=== PATIENT | male | born 1940 | race Two or more races ===

== ENCOUNTER 2018-12-07 17:01 | Emergency (ER) | payer MEDICARE, OTHER ==
[~2018-12-07] VITALS: Ht 167.6 cm; Wt 49.9 kg
[2018-12-07 17:20] VITALS: BP 129/80
--- NOTE | 2018-12-07 17:20 | NUR ---
ED Nurse Note: pt brought in by ambulance from [facility] c/o RLQ abd pain and n/v/d, pt states he doesn't have nausea nor abd pain at this time. PT AA&ox2, HX dementia, GCS=15, skin warm and dry, resp even and unlabored on RA, -n/v/d at this time, active BS, will cont monitor.
[2018-12-07 17:46] LABS: HEMATOCRIT 41.6 % (42.0-52.0); HEMOGLOBIN 14.1 G/DL (14.2-18.0); MEAN CORPUSCULAR VOLUME 88 FL (80-99); PLATELET COUNT 241 K/UL (150-450); RED BLOOD COUNT 4.73 M/UL (4.70-6.10); RED CELL DISTRIBUTION WIDTH 12.2 % (11.6-14.8)
[2018-12-07 17:48] LABS: ANION GAP 10 mmol/L (5-15); BLOOD UREA NITROGEN 18 mg/dL (7-18); CALCIUM 8.9 MG/DL (8.5-10.1); CARBON DIOXIDE 25 MMOL/L (21-32); CHLORIDE 105 MMOL/L (98-107); CREATININE 1.1 MG/DL (0.55-1.30); POTASSIUM 3.8 MMOL/L (3.5-5.1); SODIUM 140 MMOL/L (136-145)
[2018-12-07 17:49] LABS: APPEARANCE,URINE CLEAR; BILIRUBIN, URINE NEGATIVE (NEGATIVE); COLOR,URINE PALE YELLOW; GLUCOSE, URINE (UA) NEGATIVE (NEGATIVE); KETONES,URINE NEGATIVE (NEGATIVE); LEUKOCYTE ESTERASE ,URINE NEGATIVE (NEGATIVE); NITRITE,URINE NEGATIVE (NEGATIVE); PH,URINE 5 (4.5-8.0); PROTEIN,URINE 3+ (NEGATIVE); UROBILINOGEN,URINE NORMAL MG/DL (0.0-1.0)
--- NOTE | 2018-12-07 17:57 | Diagnostic Imaging Report ---
Indication: Chest pain Technique: One view of the chest Comparison: 01/27/2011 Findings: No acute infiltrates, effusions, or congestion. Tortuous calcified aorta. Normal heart size. Upper mediastinum unremarkable. No significant interim change Impression: No acute process.
[2018-12-07 18:01] LABS: ALANINE AMINOTRANSFERASE 21 U/L (12-78); ALBUMIN 3.5 G/DL (3.4-5.0); ALBUMIN/GLOBULIN RATIO 0.9 (1.0-2.7); ALKALINE PHOSPHATASE 119 U/L (46-116); ASPARTATE AMINO TRANSFERASE 19 U/L (15-37); BILIRUBIN,TOTAL 0.3 MG/DL (0.2-1.0); CKMB 1.2 NG/ML (0.0-3.6); CREATINE KINASE 82 U/L (26-308)
--- NOTE | 2018-12-07 19:20 | NUR ---
ED Nurse Note: spoke with Criselda RAMACHANDRAN at [facility], pt will be transferr back to snf.
--- NOTE | 2018-12-07 20:00 | Emergency Room Report ---
History of Present Illness General Chief Complaint: Nausea, Vomiting, and Diarrhea Source: Patient Present Illness HPI Patient presents with reports of increased nausea vomiting Upon arrival however the patient states that he feels significantly improved Initially there was also reports of diffuse abdominal discomfort Denies any chest pain or shortness of breath denies any dysuria frequency denies any flank pain Denies any recent abdominal procedures denies any rash Allergies: Coded Allergies: No Known Allergies (Unverified , 12/07/18) Patient History Past Medical History: see triage record Pertinent Family History: none Reviewed Nursing Documentation: PMH: Agreed; PSxH: Agreed Nursing Documentation-PMH Past Medical History: No History, Except For Hx Cardiac Problems: No - BPH Hx Hypertension: Yes Hx Gastrointestinal Problems: Yes - GERD History Of Psychiatric Problem: Yes - DEMENTIA Review of Systems All Other Systems: negative except mentioned in HPI Physical Exam Vital Signs Date Time Temp Pulse Resp B/P (MAP) Pulse Ox O2 Delivery O2 Flow Rate FiO2 12/07/18 16:57 77 18 129/80 94 Room Air 12/07/18 17:20 89.2 Sp02 EP Interpretation: reviewed, normal General Appearance: well appearing, no apparent distress Head: normocephalic, atraumatic Eyes: bilateral eye PERRL, bilateral eye EOMI ENT: hearing grossly normal, normal pharynx, TMs + canals normal, uvula midline Neck: full range of motion, supple, no meningismus, no bony tend Respiratory: lungs clear, normal breath sounds, no rhonchi, no respiratory distress, no retraction, no accessory muscle use Cardiovascular #1: normal peripheral pulses, regular rate, rhythm, no edema, no gallop, no JVD, no murmur Gastrointestinal: normal bowel sounds, non tender, soft, no mass, no organomegaly, non-distended, no guarding, no hernia, no pulsatile mass, no rebound Genitourinary: no CVA tenderness Musculoskeletal: normal inspection Neurologic: oriented x3, responsive, game warden III-XII nml as tested, motor strength/ tone normal, sensory intact Psychiatric: mood/affect normal Skin: normal color, no rash, warm/dry, palpation normal Lymphatic: normal inspection, no adenopathy Medical Decision Making Diagnostic Impression: Primary Impression: Nausea, vomiting, and diarrhea ER Course With the history exam and presentation, multiple differentials considered, including but not limited to appendicitis, gastritis, cholecystitis, diverticulitis Given the patient's initial history and complaints extensive blood work and imaging was obtained Imaging does not show any obvious acute pathology Blood work also remains at baseline levels Case discussed with the patient's primary as well and at this time patient stable for close outpatient [facility] follow-up Labs Test 12/07/18 17:17 12/07/18 17:32 White Blood Count 11.0 K/UL (4.8-10.8) Red Blood Count 4.73 M/UL (4.70-6.10) Hemoglobin 14.1 G/DL (14.2-18.0) Hematocrit 41.6 % (42.0-52.0) Mean Corpuscular Volume 88 FL (80-99) Mean Corpuscular Hemoglobin 29.9 PG (27.0-31.0) Mean Corpuscular Hemoglobin Concent 34.0 G/DL (32.0-36.0) Red Cell Distribution Width 12.2 % (11.6-14.8) Platelet Count 241 K/UL (150-450) Mean Platelet Volume 5.6 FL (6.5-10.1) Neutrophils (%) (Auto) % (45.0-75.0) Lymphocytes (%) (Auto) % (20.0-45.0) Monocytes (%) (Auto) % (1.0-10.0) Eosinophils (%) (Auto) % (0.0-3.0) Basophils (%) (Auto) % (0.0-2.0) Differential Total Cells Counted 100 Neutrophils % (Manual) 83 % (45-75) Lymphocytes % (Manual) 10 % (20-45) Monocytes % (Manual) 4 % (1-10) Eosinophils % (Manual) 0 % (0-3) Basophils % (Manual) 0 % (0-2) Band Neutrophils 3 % (0-8) Platelet Estimate Adequate Platelet Morphology Normal Red Blood Cell Morphology Normal Sodium Level 140 MMOL/L (136-145) Potassium Level 3.8 MMOL/L (3.5-5.1) Chloride Level 105 MMOL/L (98-107) Carbon Dioxide Level 25 MMOL/L (21-32) Anion Gap 10 mmol/L (5-15) Blood Urea Nitrogen 18 mg/dL (7-18) Creatinine 1.1 MG/DL (0.55-1.30) Estimat Glomerular Filtration Rate mL/min (>60) Glucose Level 123 MG/DL (74-106) Calcium Level 8.9 MG/DL (8.5-10.1) Total Bilirubin 0.3 MG/DL (0.2-1.0) Aspartate Amino Transf (AST/SGOT) 19 U/L (15-37) Alanine Aminotransferase (ALT/SGPT) 21 U/L (12-78) Alkaline Phosphatase 119 U/L (46-116) Total Creatine Kinase 82 U/L (26-308) Creatine Kinase MB 1.2 NG/ML (0.0-3.6) Creatine Kinase MB Relative Index 1.4 Troponin I 0.005 ng/mL (0.000-0.056) Total Protein 7.6 G/DL (6.4-8.2) Albumin 3.5 G/DL (3.4-5.0) Globulin 4.1 g/dL Albumin/Globulin Ratio 0.9 (1.0-2.7) Lipase 136 U/L (73-393) Urine Color Pale yellow Urine Appearance Clear Urine pH 5 (4.5-8.0) Urine Specific [place] 1.015 (1.005-1.035) Urine Protein 3+ (NEGATIVE) Urine Glucose (UA) Negative (NEGATIVE) Urine Ketones Negative (NEGATIVE) Urine Blood 2+ (NEGATIVE) Urine Nitrite Negative (NEGATIVE) Urine Bilirubin Negative (NEGATIVE) Urine Urobilinogen Normal MG/DL (0.0-1.0) Urine Leukocyte Esterase Negative (NEGATIVE) Urine RBC 2-4 /HPF (0 - 0) Urine WBC 0-2 /HPF (0 - 0) Urine Squamous Epithelial Cells None /LPF (NONE/OCC) Urine Bacteria Few /HPF (NONE) CT/MRI/US Diagnostic Results CT/MRI/US Diagnostic Results : Impression CT abdomen pelvis: refer to the note for full Specifics no obvious acute pathology Last Vital Signs Date Time Temp Pulse Resp B/P (MAP) Pulse Ox O2 Delivery O2 Flow Rate FiO2 12/07/18 17:20 89.2 76 18 129/80 94 Room Air Status: improved Disposition: XFER SNF Condition: Improved Referrals: Guido Prieto MD (PCP) Additional Instructions: Patient is provided with the discharge instructions notified to follow up with primary doctor in the next 2-3 days otherwise return to the er with any worsening symptoms. Please note that this report is being documented using DRAGON technology. This can lead to erroneous entry secondary to incorrect interpretation by the dictating instrument. Guido Sellers DO Dec 07, 2018 20:00
[2018-12-07 21:02] VITALS: BP 133/81
--- NOTE | 2018-12-07 21:03 | NUR ---
ED Nurse Note: pt cleared to be d/c per ERMD, pt discharge and aftercare instruction provide and sent with BLS, report was given to Criselda, endorsed care to EMT ambulance personnel, pt left w/ all belongings, vss, resp even and unlabored on RA, iv d/c and ID band removed.
--- NOTE | 2018-12-08 10:02 | Diagnostic Imaging Report ---
Indication: Abdominal pain Technique: Noncontrast CT of the abdomen and pelvis utilizing automated exposure control. Axial, sagittal and coronal reformats presented. CT dose: Total DLP 548.1 mGycm; CTDI vol 10.45 mGy Comparison: None Findings: Please note that evaluation of the abdominal and pelvic viscera and vascular structures is limited without the use of intravenous and oral contrast. Within these limitations the following observations are made: Mild bibasilar atelectasis and peribronchial thickening. No pleural effusion or pneumothorax. Heart size appears within normal limits. Coronary arterial calcifications are suggested but not completely imaged. Liver is normal in size. Hepatic contour appears smooth. There is a subcentimeter well-circumscribed low-attenuation lesion in the posterior right hepatic lobe which is too small to fully characterize but may represent a cyst. Gallbladder is not distended. No CT evident gallstones are identified. No biliary ductal dilatation. Spleen, adrenal glands and pancreas grossly unremarkable for noncontrast evaluation. No appreciable pancreatic ductal dilatation. Kidneys are heterogeneous in attenuation with multiple simple and complex cysts. Largest cyst on the left kidney measures up to 6.6 cm. There are some punctate calcifications which may be related to an injection of vascular calcifications, nonobstructing stones or calcifications within hatch of the cysts. There is no evidence of hydronephrosis bilaterally. Bladder is not significantly distended. The prostate is enlarged, heterogeneous and exerts mass effect on the posterior aspect of the bladder. Note that evaluation of the gastrointestinal structures is limited without enteric contrast. There is no free intraperitoneal air. There is mesenteric edema and very mild ascites. There is evidence of prior surgery with multiple surgical clips adjacent to the lower esophagus in the region of the diaphragmatic hiatus. Surgical clips are also noted adjacent to the liver at this level. Additionally there is evidence of prior bowel surgery with a surgical as to moderate suture line in the right mid/lower abdomen. There is no evidence of abnormal small bowel dilatation to suggest small bowel obstruction. Few scattered colonic diverticula are noted without evidence to suggest acute diverticulitis. Appendix is normal in caliber with air in its lumen. No periappendiceal inflammatory changes. Moderate to severe atherosclerotic calcifications noted in a normal caliber abdominal aorta. There are multilevel degenerative changes in the spine without evidence of acute osseous abnormality. IMPRESSION: Limited exam without intravenous and oral contrast. Within these limitations: * Mesenteric edema and small amount of abdominal ascites. No evidence of free intraperitoneal air. * Evidence of prior surgery with surgical clips in the region of the diaphragmatic hiatus and a anastomotic suture line in the region of the right mid/lower abdomen. Correlation with surgical history is recommended. No abnormal small bowel dilatation is noted. * Heterogeneous kidneys with multiple punctate calcifications which may be related to vascular calcifications, nonobstructing stones or calcifications within hatch of cysts. No evidence of hydronephrosis bilaterally. * Multiple simple and more complex appearing cysts in the bilateral kidneys. Further evaluation with contrast-enhanced exam or renal ultrasound recommended on a routine basis. * Subcentimeter low-attenuation lesion in the right hepatic lobe too small to fully characterize but possibly may represent a cyst. * Atherosclerotic disease. * Mild bibasilar atelectasis and peribronchial thickening. Salient findings correspond with the preliminary report. More sensitive evaluation can be obtained with CT with oral and IV contrast as clinically indicated. The CT scanner at [facility] is accredited by the [employer] and the scans are performed using protocols designed to limit radiation exposure to as low as reasonably achievable to attain images of sufficient resolution adequate for diagnostic evaluation.
== END 2018-12-07 21:10 ==
LOC: EDBD 17:01 → EMR 17:05 → CANBEDREQ 19:07 → EMR 21:10
DX: R11.2 Nausea with vomiting, unspecified (principal); R19.7 Diarrhea, unspecified; I10 Essential (primary) hypertension; K21.9 Gastro-esophageal reflux disease without esophagitis; F03.90 Unspecified dementia, unspecified severity, without behavioral disturbance, psychotic disturbance, mood disturbance, and anxiety; R10.9 Unspecified abdominal pain; N20.0 Calculus of kidney; I70.90 Unspecified atherosclerosis; J98.11 Atelectasis
CPT/HCPCS: 36415; 71045; 74176; 80053; 81003; 82550; 82553; 83690; 84484; 85007; 85025; 93005; 99284

== ENCOUNTER 2019-01-25 12:18 | Inpatient (IN) | payer MEDICARE, OTHER ==
[~2019-01-25] VITALS: Ht 170.2 cm; Wt 77.3 kg
[2019-01-25 12:23] VITALS: BP 133/68
--- NOTE | 2019-01-25 12:23 | NUR ---
ED Nurse Note: Patient brought in to ER by ambulance from [facility] due to more altered than baseline. per EMS, SNF staff reported pt usually aao x2 but he appreared aao x1 today and confused. vss as documented and skin clean and intact. pt aao x1 to name only and ambulatory with assist and weak. pt follows commands and calm.
--- NOTE | 2019-01-25 12:25 | NUR ---
ED Nurse Note: pt went down for CT scan in stable condition.
[2019-01-25] MEDS ORDERED: ZOFRAN4 M3 ORAL (12:31)
[2019-01-25] MEDS ORDERED: FLOMAX0.4 MG ORAL (12:31)
[2019-01-25] MEDS ORDERED: AMLODIPINE BESYL5 MG ORAL (12:31)
[2019-01-25] MEDS ORDERED: NEXIUM20 MG ORAL (12:31)
[2019-01-25] MEDS ORDERED: ACETAMINOPHEN325 M1 ORAL (12:31)
[2019-01-25] MEDS ORDERED: MIRALAX17 G2 ORAL (12:31)
[2019-01-25] MEDS ORDERED: PROSCAR5 MG ORAL (12:31)
--- NOTE | 2019-01-25 12:40 | NUR ---
ED Nurse Note: pt came back from CT in stable condition.
--- NOTE | 2019-01-25 12:54 | Diagnostic Imaging Report ---
Indications: Altered mental status Technique: Spiral acquisitions obtained through the brain. Angled axial and coronal 5 x 5 mm slices were reconstructed. Total dose length product 1396.78 mGycm. CTDI vol(s) 70.38 mGy. Dose reduction achieved using automated exposure control Comparison: None. Findings: There is age-related enlargement of the ventricles and extra axial CSF spaces. There is periventricular deep white matter low-attenuation, consistent with chronic microvascular ischemic changes. No acute intracranial hemorrhage or edema, mass effect, nor midline shift. Impression: Chronic and age-related changes chronic and age-related changes. Negative for acute intracranial bleed or mass effect The CT scanner at [facility] is accredited by the [employer] and the scans are performed using protocols designed to limit radiation exposure to as low as reasonably achievable to attain images of sufficient resolution adequate for diagnostic evaluation.
[2019-01-25 13:04] LABS: BASOPHILS % (AUTO) 0.8 % (0.0-2.0); EOSINOPHILS % (AUTO) 2.9 % (0.0-3.0); LYMPHOCYTES % (AUTO) 13.3 % (20.0-45.0); MEAN CORPUSCULAR VOLUME 89 FL (80-99); MONOCYTES % (AUTO) 7.2 % (1.0-10.0); NEUTROPHILS % (AUTO) 75.8 % (45.0-75.0); PLATELET COUNT 313 K/UL (150-450); RED BLOOD COUNT 5.15 M/UL (4.70-6.10); RED CELL DISTRIBUTION WIDTH 12.9 % (11.6-14.8); WHITE BLOOD COUNT 7.7 K/UL (4.8-10.8)
[2019-01-25 13:09] LABS: APPEARANCE,URINE CLEAR; BILIRUBIN, URINE NEGATIVE (NEGATIVE); COLOR,URINE PALE YELLOW; GLUCOSE, URINE (UA) NEGATIVE (NEGATIVE); KETONES,URINE NEGATIVE (NEGATIVE); LEUKOCYTE ESTERASE ,URINE NEGATIVE (NEGATIVE); NITRITE,URINE NEGATIVE (NEGATIVE); PH,URINE 7 (4.5-8.0); PROTEIN,URINE 2+ (NEGATIVE); UROBILINOGEN,URINE NORMAL MG/DL (0.0-1.0)
[2019-01-25 13:11] LABS: ANION GAP 9 mmol/L (5-15); BLOOD UREA NITROGEN 18 mg/dL (7-18); CALCIUM 9.1 MG/DL (8.5-10.1); CARBON DIOXIDE 28 MMOL/L (21-32); CHLORIDE 104 MMOL/L (98-107); CREATININE 1.2 MG/DL (0.55-1.30); POTASSIUM 3.7 MMOL/L (3.5-5.1); SODIUM 141 MMOL/L (136-145)
[2019-01-25 13:36] LABS: ALANINE AMINOTRANSFERASE 24 U/L (12-78); ALBUMIN 3.7 G/DL (3.4-5.0); ALBUMIN/GLOBULIN RATIO 0.9 (1.0-2.7); ALKALINE PHOSPHATASE 113 U/L (46-116); ASPARTATE AMINO TRANSFERASE 25 U/L (15-37); BILIRUBIN,TOTAL 0.5 MG/DL (0.2-1.0); CKMB 5.2 NG/ML (0.0-3.6); CREATINE KINASE 405 U/L (26-308)
[2019-01-25 14:30] VITALS: BP 144/69
--- NOTE | 2019-01-25 14:47 | Emergency Room Report ---
History of Present Illness General Chief Complaint: Altered Level of Consciousness Source: Patient, Medical Record, EMS Present Illness HPI This patient is brought in from a [place] [facility]. There is concerned that he has become progressively more confused. His primary care physician is concerned that he may have a urinary tract infection or some other infection causing the confusion. The patient himself has no specific complaints. He denies pain other than some chronic lower extremity pain. There has been no recent illness. There are no other complaints. Allergies: Coded Allergies: No Known Allergies (Unverified , 12/07/18) Patient History Past Medical History: see triage record, HTN, GERD, dementia Social History: Denies: smoking, alcohol use, drug use Reviewed Nursing Documentation: PMH: Agreed; PSxH: Agreed Nursing Documentation-PMH Past Medical History: No History, Except For Hx Hypertension: Yes Hx Gastrointestinal Problems: Yes - GERD History Of Psychiatric Problem: Yes - Dementia Review of Systems All Other Systems: negative except mentioned in HPI Physical Exam Vital Signs Date Time Temp Pulse Resp B/P (MAP) Pulse Ox O2 Delivery O2 Flow Rate FiO2 01/25/19 12:12 98.1 94 20 117/87 (97) 96 Room Air Sp02 EP Interpretation: reviewed, normal General Appearance: no apparent distress, alert, GCS 15, non-toxic Head: normocephalic, atraumatic Eyes: bilateral eye normal inspection, bilateral eye PERRL ENT: hearing grossly normal, normal pharynx, no angioedema, normal voice Neck: full range of motion, supple/symm/no masses Respiratory: chest non-tender, lungs clear, normal breath sounds, speaking full sentences Cardiovascular #1: regular rate, rhythm, no edema Gastrointestinal: normal bowel sounds, non tender, soft, non-distended, no guarding, no rebound Rectal: deferred Musculoskeletal: back normal, gait/station normal, normal range of motion, non- tender Neurologic: alert, responsive, motor strength/tone normal, sensory intact, speech normal Psychiatric: mood/affect normal Skin: warm/dry, well hydrated, other - See RN skin exam Medical Decision Making Diagnostic Impression: Primary Impression: Progressive dementia with uncertain etiology ER Course I suspect this patient has progressive dementia. There is no evidence of infection at this time. I'm unsure of the exact etiology other than possibly age related. Laboratory workup is unremarkable and the patient's evaluation is nonfocal. The patient is admitted to observation for further assessment by geriatric psychiatry. Laboratory Tests Test 01/25/19 12:45 01/25/19 12:54 White Blood Count 7.7 K/UL (4.8-10.8) Red Blood Count 5.15 M/UL (4.70-6.10) Hemoglobin 15.0 G/DL (14.2-18.0) Hematocrit 46.0 % (42.0-52.0) Mean Corpuscular Volume 89 FL (80-99) Mean Corpuscular Hemoglobin 29.2 PG (27.0-31.0) Mean Corpuscular Hemoglobin Concent 32.7 G/DL (32.0-36.0) Red Cell Distribution Width 12.9 % (11.6-14.8) Platelet Count 313 K/UL (150-450) Mean Platelet Volume 6.1 FL (6.5-10.1) L Neutrophils (%) (Auto) 75.8 % (45.0-75.0) H Lymphocytes (%) (Auto) 13.3 % (20.0-45.0) L Monocytes (%) (Auto) 7.2 % (1.0-10.0) Eosinophils (%) (Auto) 2.9 % (0.0-3.0) Basophils (%) (Auto) 0.8 % (0.0-2.0) Sodium Level 141 MMOL/L (136-145) Potassium Level 3.7 MMOL/L (3.5-5.1) Chloride Level 104 MMOL/L (98-107) Carbon Dioxide Level 28 MMOL/L (21-32) Anion Gap 9 mmol/L (5-15) Blood Urea Nitrogen 18 mg/dL (7-18) Creatinine 1.2 MG/DL (0.55-1.30) Estimate Glomerular Filtration Rate mL/min (>60) Glucose Level 121 MG/DL (74-106) H Lactic Acid Level 1.00 mmol/L (0.4-2.0) Calcium Level 9.1 MG/DL (8.5-10.1) Total Bilirubin 0.5 MG/DL (0.2-1.0) Aspartate Amino Transferase (AST) 25 U/L (15-37) Alanine Aminotransferase (ALT) 24 U/L (12-78) Alkaline Phosphatase 113 U/L (46-116) Total Creatine Kinase 405 U/L (26-308) H Creatine Kinase MB 5.2 NG/ML (0.0-3.6) H Creatine Kinase MB Relative Index 1.2 Troponin I 0.000 ng/mL (0.000-0.056) Total Protein 7.9 G/DL (6.4-8.2) Albumin 3.7 G/DL (3.4-5.0) Globulin 4.2 g/dL Albumin/Globulin Ratio 0.9 (1.0-2.7) L Urine Color Pale yellow Urine Appearance Clear Urine pH 7 (4.5-8.0) Urine Specific [place] 1.010 (1.005-1.035) Urine Protein 2+ (NEGATIVE) H Urine Glucose (UA) Negative (NEGATIVE) Urine Ketones Negative (NEGATIVE) Urine Blood 1+ (NEGATIVE) H Urine Nitrite Negative (NEGATIVE) Urine Bilirubin Negative (NEGATIVE) Urine Urobilinogen Normal MG/DL (0.0-1.0) Urine Leukocyte Esterase Negative (NEGATIVE) Urine RBC 2-4 /HPF (0 - 0) H Urine WBC 0-2 /HPF (0 - 0) Urine Squamous Epithelial Cells Occasional /LPF Urine Bacteria Occasional /HPF (NONE) EKG Diagnostic Results Rate: normal Rhythm: other - SR w/ 1st degree AV block ST Segments: no acute changes Rhythm Strip Diag. Results EP Interpretation: yes Rate: 80's Rhythm: NSR, no PVC's, no ectopy Chest X-Ray Diagnostic Results Chest X-Ray Diagnostic Results : Chest X-Ray Ordered: Yes # of Views/Limited/Complete: 1 View Indication: Other EP Interpretation: Yes Interpretation: no consolidation, no effusion, no pneumothorax, no acute cardiopulmonary disease Impression: No acute disease Electronically Signed by: Dilia Velazco DO CT/MRI/US Diagnostic Results CT/MRI/US Diagnostic Results : Imaging Test Ordered: CT head Impression No acute findings. Specifically no intracranial bleed, mass effect or edema. See official report. Last Vital Signs Date Time Temp Pulse Resp B/P (MAP) Pulse Ox O2 Delivery O2 Flow Rate FiO2 01/25/19 12:23 92 18 Room Air 01/25/19 12:23 97.8 133/68 97 Disposition: ADMITTED INPATIENT Condition: Stable Dilia Velazco DO Jan 25, 2019 14:47
--- NOTE | 2019-01-25 16:21 | Diagnostic Imaging Report ---
Indication: Shortness of breath Technique: One view of the chest Comparison: 12/07/2018 Findings: Lungs and pleural spaces are clear. Heart size is normal. The aorta is tortuous calcified and ectatic. Normal heart size. No significant interim change Impression: No acute process
[2019-01-25 16:30] VITALS: BP 126/84
[2019-01-25 18:00] VITALS: BP 131/81
--- NOTE | 2019-01-25 18:41 | NUR ---
ED Nurse Note: Called for report. Per Breana, RN room and nurse are not available at this moment. will call again.
--- NOTE | 2019-01-25 18:53 | NUR ---
ED Nurse Note: RADHA Toussaint with another pt. was told to call back.
--- NOTE | 2019-01-25 19:06 | NUR ---
HAND-OFF: Report given to DUARTE Treviño. attempted to give report a couple of time and was not able to. report needs to be given. belonging list and swabs and med recon done.
--- NOTE | 2019-01-25 19:32 | NUR ---
ED Nurse Note: Called forreport. placed on hold for 10mins, will attempt later.
--- NOTE | 2019-01-25 20:33 | NUR ---
TRANSFER TO FLOOR: Patient transferred to as ordered, per Dr Lemos. Report given to DUARTE Loya. Family and or S/O informed of transfer. Son contacted
--- NOTE | 2019-01-25 20:34 | NUR ---
NURSE NOTES: Pt brought up by ED nurse. aao x1 to name only but is very confused. pt is ambulatory with assist but is very weak- cannot stand independently. VSS. pt is agitated and restless. will continue to monitor and get admit orders from Dr Prieto.
[2019-01-25 20:45] VITALS: BP 136/85
--- NOTE | 2019-01-25 20:45 | NUR ---
NURSE NOTES: Received admit orders from Dr Prieto and will input. Pt will need a sitter as medications to calm patient are contraindicated. Will input and continue to monitor pt and place in bed closest to nursing station.
[2019-01-25] MEDS ORDERED: Miralax 17gm pkt ORAL PRN (21:45)
[2019-01-26] VITALS: BP 144/85
[2019-01-26 04:00] VITALS: BP 133/72
--- NOTE | 2019-01-26 07:41 | NUR ---
HAND-OFF: Report given to shank inspector to give to DUARTE Guerrero.
[2019-01-26 08:00] VITALS: BP 118/79
--- NOTE | 2019-01-26 08:00 | NUR ---
NURSE NOTES: Patient is wandering the hallway with sitter. Anxious and agitated. Stable. Patient is unable to follow simple commands. No facial grimacing or signs of discomfort noted at this time. Patient has all fall precautions in place. RN attempted to redirect patient, was unsuccessful. Will continue to monitor.
--- NOTE | 2019-01-26 09:00 | NUR ---
NURSE NOTES: Patient severely agitated and noncompliant. Wandering unit with sitter. RN and charge nurse attempted to redirect patient, patient did not comply. All safety measures provided. Will continue to montior.
--- NOTE | 2019-01-26 10:51 | NUR ---
HAND-OFF: Report given to Marisol RAMACHANDRAN. Patient is in bed.
--- NOTE | 2019-01-26 11:52 | NUR ---
NURSE NOTES: Pt is currently sleeping per report pt was combative. Wolof speaker able to redirects.Pt restless, Tylenol given, Pt reassessed fell asleep. Cooperated with medication administration, Remains on 1:1 for monitoring. related to aloc.
[2019-01-26 12:00] VITALS: BP 138/70
[2019-01-26 12:01] LABS: BASOPHILS % (AUTO) 0.9 % (0.0-2.0); HEMATOCRIT 43.2 % (42.0-52.0); HEMOGLOBIN 14.2 G/DL (14.2-18.0); LYMPHOCYTES % (AUTO) 12.9 % (20.0-45.0); MEAN CORPUSCULAR VOLUME 89 FL (80-99); MONOCYTES % (AUTO) 7.8 % (1.0-10.0); NEUTROPHILS % (AUTO) 75.3 % (45.0-75.0); PLATELET COUNT 286 K/UL (150-450); RED BLOOD COUNT 4.84 M/UL (4.70-6.10); RED CELL DISTRIBUTION WIDTH 12.7 % (11.6-14.8); WHITE BLOOD COUNT 6.8 K/UL (4.8-10.8)
[2019-01-26 12:42] LABS: ANION GAP 7 mmol/L (5-15); BLOOD UREA NITROGEN 17 mg/dL (7-18); CALCIUM 8.8 MG/DL (8.5-10.1); CARBON DIOXIDE 28 MMOL/L (21-32); CHLORIDE 107 MMOL/L (98-107); CREATININE 1.1 MG/DL (0.55-1.30); POTASSIUM 3.7 MMOL/L (3.5-5.1); SODIUM 142 MMOL/L (136-145)
--- NOTE | 2019-01-26 14:44 | NUR ---
CASE MANAGEMENT:REVIEW 78 YR OLD MALE BIBA FROM [place] CC: MORE CONFUSED SI: AMS 98.1 94 20 117/87 96% ON RA GLUCOSE+121 TCK+405 CKMB+5.2 TROPONIN(-) IS: 1L NS BOLUS X2 CT HEAD CHEST XRAY BLOOD CX : TO MED/SURG 3 [facility] DCP: WILL RETURN TO [place]
--- NOTE | 2019-01-26 15:16 | NUR ---
NURSE NOTES: Pt behavior is currently calm. Has not had verbal outburst or display of combative bx. Son phoned from [place] informed that he is currently under observation, bx is calm at this time.
[2019-01-26 16:00] VITALS: BP 145/79
[2019-01-26] MEDS: OLANZapine 2.5mg tab ORAL SCH ×2 (16:53→18:00)
--- NOTE | 2019-01-26 19:20 | NUR ---
NURSE NOTES: Report taken from DUARTE Curry. Patient is awake and in bed, A&Ox2, does not know the time and day, is aware of where he is. No signs of distress on room air. No complaints of pain. IV c/d/i and patent, no fluids running. Sitter at bedside for the night, [place]. Skin intact. Contacted MD to check if next dose of ziprexa is necessary for the evening, as it was prescribed later in the afternoon. Bed in lowest position, call light within reach.
--- NOTE | 2019-01-26 19:57 | NUR ---
NURSE NOTES: Remains on 1:[address] peterson here earlier to see pt. New orders carried out. Zyprexa given. No further signs of pain. Ate well at lunch and dinner.
--- NOTE | 2019-01-26 19:58 | NUR ---
HAND-OFF: Report given to Johnathan RAMACHANDRAN.
[2019-01-26 20:00] VITALS: BP 131/82
[2019-01-26] MEDS: Tamsulosin 0.4mg cap ORAL SCH (21:23)
[2019-01-26] MEDS: OLANZapine 2.5mg tab ORAL PRN (21:23)
--- NOTE | 2019-01-26 21:27 | NUR ---
NURSE NOTES: Spoke with Dr. Prieto, would like to keep sitter overnight. Lee Ann De La Garza. Dr. Casey requested that second dose of Ziprexa be given before bed after previous dose.
--- NOTE | 2019-01-26 23:49 | Consultation ---
History of Present Illness General Date patient seen: Jan 26, 2019 Chief Complaint: Altered Level of Consciousness Referring physician: Dr. Martinez Present Illness HPI This is a 78 year old SNF resident with known history of dementia who was brought to [facility] for report of increasing confusion. There is very little information available for this patient and patient is not cooperative with interview / exam but is observed moving all extremities with no apparent weakness. His responses are not appropriate and he does not follow instructions. He is also resistant to any physical contact/ examination. His exam is non-focal. Allergies: Coded Allergies: No Known Allergies (Unverified , 12/07/18) Medication History Scheduled Amlodipine Besylate* (Amlodipine Besylate*), 5 MG ORAL DAILY, (Reported) Esomeprazole Magnesium (Nexium), 20 MG ORAL DAILY, (Reported) Finasteride* (Proscar*), 5 MG ORAL DAILY, (Reported) Polyethylene Glycol 3350* (Miralax*), 17 GM ORAL DAILY, (Reported) Tamsulosin HCl (Flomax), 0.4 MG ORAL DAILY, (Reported) Scheduled PRN Acetaminophen* (Acetaminophen 325MG Tablet*), 650 MG ORAL Q6H PRN for Pain Scale (3-5), (Reported) Ondansetron* (Zofran*), 4 MG ORAL Q6H PRN for Nausea & Vomiting, (Reported) Patient History Limited by: medical condition History Provided By: Medical Record Healthcare decision maker N Resuscitation status Full Code Advanced Directive on File Past Medical/Surgical History Past Medical/Surgical History: (1) Dementia Review of Systems Constitutional: Denies: no symptoms, see HPI, chills, sweats, fever, malaise, weakness, other Eye: Denies: no symptoms, see HPI, eye pain, blurred vision, tearing, double vision, nose pain, nose congestion, acuity changes, discharge, other ENT: Denies: no symptoms, see HPI, ear pain, ear discharge, nose pain, nose congestion, throat pain, throat swelling, mouth pain, hearing loss, nasal discharge, other Respiratory: Denies: no symptoms, see HPI, cough, orthopnea, shortness of breath, stridor, wheezing, [place], sputum, other Cardiovascular: Denies: no symptoms, see HPI, chest pain, edema, palpitations, syncope, PND, other Gastrointestinal: Denies: no symptoms, see HPI, abdominal pain, constipation, diarrhea, nausea, vomiting, melena, hematemesis, other Genitourinary: Denies: no symptoms, see HPI, discharge, dysuria, frequency, hematuria, pain, retention, incontinence, urgency, vag bleed/dc, other Musculoskeletal: Denies: no symptoms, see HPI, back pain, gout, joint pain, joint swelling, muscle pain, muscle stiffness, other Skin: Denies: no symptoms, see HPI, rash, change in color, change in hair/nails , dryness, lesions, other Psychiatric: Denies: no symptoms, see HPI, prior hx, anxiety, depressed feelings, emotional problems, SI, HI, hallucinations, other Neurological: Denies: no symptoms, see HPI, headache, numbness, paresthesia, seizure, tingling, tremors, focal weakness, syncope, dizziness, other Endocrine: Denies: no symptoms, see HPI, excessive sweating, flushing, intolerance to temperature, increased thirst, increased urine, unexplained weight loss, other Hematologic/Lymphatic: Denies: no symptoms, see HPI, anemia, blood clots, easy bleeding, easy bruising, swollen glands, diathesis, other All Other Systems: negative except mentioned in HPI ROS Narrative Patient not responding to questions but not appearing to be in any immediate distress Physical Exam General Appearance: WD/WN, no apparent distress, alert, confused Lines, tubes and drains: peripheral HEENT: normocephalic, atraumatic, anicteric, mucous membranes moist, PERRL, EOMI, supple, no JVD Neck: normal alignment, supple, normal inspection Respiratory/Chest: no respiratory distress, no accessory muscle use Skin Exam: warm/dry, no diaphoresis Neurologic: no motor/sensory deficits - grossly apparent , alert, no Babinski, depressed affect, other Last 24 Hour Vital Signs Date Time Temp Pulse Resp B/P (MAP) Pulse Ox O2 Delivery O2 Flow Rate FiO2 01/26/19 21:00 Room Air 01/26/19 20:00 98.4 80 24 131/82 (98) 97 01/26/19 16:00 97.2 69 18 145/79 (101) 01/26/19 12:00 97.6 74 18 138/70 (92) 97 01/26/19 10:29 79 145/79 01/26/19 09:00 Room Air 01/26/19 08:00 () 01/26/19 04:00 97.9 67 18 133/72 (92) 95 01/26/19 00:00 98.3 94 20 144/85 (104) 97 Intake and Output 01/25/19 01/26/19 19:00 07:00 Intake Total 2000 ml Balance 2000 ml Intake Oral 0 ml IV Total 2000 ml # Voids 4 Laboratory Tests Test 01/26/19 11:25 White Blood Count 6.8 K/UL (4.8-10.8) Red Blood Count 4.84 M/UL (4.70-6.10) Hemoglobin 14.2 G/DL (14.2-18.0) Hematocrit 43.2 % (42.0-52.0) Mean Corpuscular Volume 89 FL (80-99) Mean Corpuscular Hemoglobin 29.4 PG (27.0-31.0) Mean Corpuscular Hemoglobin Concent 32.9 G/DL (32.0-36.0) Red Cell Distribution Width 12.7 % (11.6-14.8) Platelet Count 286 K/UL (150-450) Mean Platelet Volume 6.0 FL (6.5-10.1) L Neutrophils (%) (Auto) 75.3 % (45.0-75.0) H Lymphocytes (%) (Auto) 12.9 % (20.0-45.0) L Monocytes (%) (Auto) 7.8 % (1.0-10.0) Eosinophils (%) (Auto) 3.0 % (0.0-3.0) Basophils (%) (Auto) 0.9 % (0.0-2.0) Sodium Level 142 MMOL/L (136-145) Potassium Level 3.7 MMOL/L (3.5-5.1) Chloride Level 107 MMOL/L (98-107) Carbon Dioxide Level 28 MMOL/L (21-32) Anion Gap 7 mmol/L (5-15) Blood Urea Nitrogen 17 mg/dL (7-18) Creatinine 1.1 MG/DL (0.55-1.30) Estimat Glomerular Filtration Rate mL/min (>60) Glucose Level 91 MG/DL (74-106) Calcium Level 8.8 MG/DL (8.5-10.1) Height (Feet): 5 Height (Inches): 7.00 Weight (Pounds): 170 Medications Current Medications Medications (Trade) Dose Ordered Sig/Phong Route PRN Reason Start Time Stop Time Status Last Admin Dose Admin Acetaminophen (Tylenol) 650 mg Q6H PRN ORAL Pain Scale (3-5) 01/25/19 21:45 02/24/19 21:44 01/26/19 10:29 Amlodipine Besylate (Norvasc) 5 mg DAILY ORAL 01/26/19 09:00 02/25/19 08:59 01/26/19 10:29 Finasteride (Proscar) 5 mg DAILY ORAL 01/26/19 09:00 02/25/19 08:59 01/26/19 10:30 Haloperidol Lactate (Haldol) 5 mg Q6H PRN IM Breakthrough Agitation 01/26/19 15:45 02/25/19 15:44 Olanzapine (ZyPREXA) 2.5 mg HSPRN PRN ORAL AGITATION 01/26/19 21:00 02/25/19 20:59 01/26/19 21:23 Olanzapine (ZyPREXA) 2.5 mg TID ORAL 01/26/19 15:45 02/25/19 15:44 01/26/19 16:53 Ondansetron HCl (Zofran) 4 mg Q8H PRN ORAL Nausea & Vomiting 01/25/19 21:45 02/24/19 21:44 Pantoprazole (Protonix) 40 mg DAILY ORAL 01/26/19 09:00 02/25/19 08:59 01/26/19 10:29 Polyethylene Glycol (Miralax) 17 gm DAILYPRN PRN ORAL CONSTIPATION 01/25/19 21:45 02/24/19 21:44 Tamsulosin HCl (Flomax) 0.4 mg BEDTIME ORAL 01/26/19 21:00 02/25/19 20:59 01/26/19 21:23 Objective Narrative Patient moves all extremities spontaneously but not following commands. NO apparent facial weakness or problems eating as per chief of staff doctor Assessment/Plan Problem List: (1) Delirium ICD Codes: R41.0 - Disorientation, unspecified SNOMED: 1210731 (2) Dementia ICD Codes: F03.90 - Unspecified dementia without behavioral disturbance SNOMED: 31235531 Qualifiers: Qualified Codes: F03.90 - Unspecified dementia without behavioral disturbance Status: stable Assessment/Plan: No indication for acute imaging at this time. Q4 Hour Neuro Obs PT Eval OT Eval Frequent reorientation Avoid use of BENZODIAZAPENES, OPIOIDS, ANTICHOLINERGICS ( eg Haldol, Ativan) CT Head was NAD for acute processes - No MRI indicated at this time. Cynthia English N.P. Jan 26, 2019 23:49
[2019-01-27] VITALS: BP 124/85
--- NOTE | 2019-01-27 00:45 | Consultation ---
DATE OF CONSULTATION: 01/26/2019 CONSULTING PHYSICIAN: Liz Casey M.D. HISTORY OF PRESENT ILLNESS: The patient is presenting with disorganized speech and behavior, easily agitated, not engaging during the evaluation. Poor insight and judgment. The patient is severely agitated. He is not following redirection. The patient is disorganized and not able to provide any history. PAST PSYCHIATRIC HISTORY: Anxiety and agitation. PAST MEDICAL HISTORY: Hypertension, GERD, and dementia. ALLERGIES: No known drug allergies. SUBSTANCE ABUSE HISTORY: No known history of illicit drug use or alcohol. MENTAL STATUS EXAMINATION: The patient is alert, confused, disoriented. During my evaluation, he is calm, however, he was agitated prior to my evaluation. Thought process is disorganized. Thought content, no suicidal or homicidal ideation. Cognition is impaired. Insight and judgment non-existent. ASSESSMENT: AXIS I: Dementia with behavioral disturbance. AXIS II: Deferred. AXIS III: As above. AXIS IV: Low. AXIS V: 20. PLAN: 1. The patient will be started on Zyprexa 2.5 mg p.o. three times a day. 2. Haldol p.r.n. 3. Provide the patient with reality orientation and supportive therapy. Liz Casey M.D. DR: CHARLENE JOB#: [id number] CC:
[2019-01-27 04:00] VITALS: BP 122/79
--- NOTE | 2019-01-27 04:00 | History and Physical Report ---
DATE OF ADMISSION: 01/25/2019 HISTORY OF PRESENT ILLNESS: The patient is a very poor historian, admitted for altered mental status and dementia as well. I cannot get any reliable history from the patient. The patient is admitted for altered mental status. Again, I cannot get any history from the patient. PAST MEDICAL HISTORY: Dementia, GERD, constipation, BPH, and hypertension. PAST SURGICAL HISTORY: Unable to obtain. ALLERGIES: No known allergies. MEDICATIONS: Polyethylene glycol, Flomax, finasteride, Nexium, and amlodipine. FAMILY HISTORY: Unable to obtain. SOCIAL HISTORY: Unable to obtain. REVIEW OF SYSTEMS: Unable to obtain. PHYSICAL EXAMINATION: VITAL SIGNS: Temperature 97.9, pulse 67, and blood pressure 130/70. HEENT: PERRLA. NECK: Supple. No lymphadenopathy. CHEST: Clear to auscultation. CARDIOVASCULAR: Regular rate and rhythm. No murmurs or extra sounds. GASTROINTESTINAL: Soft, nontender, and nondistended. No organomegaly. EXTREMITIES: No edema. Moves all four extremities. Sensory intact to light touch. NEUROLOGIC: Very confused. Reflexes in both sides. Oriented to name only. LABORATORY DATA: WBC 7.2, hemoglobin 15, and platelets 313. Sodium 141, potassium 3.7, and glucose 121. ASSESSMENT: 1. Altered mental status. 2. Dementia. PLAN: I have asked Dr. Humphryes as well as Dr. Helms to see the patient for the management of borderline potassium and rule out dehydration as well as for the management of altered mental status. The patient is very confused more than his usual baseline. Guido Prieto M.D. DR: SUSSY JOB#: [id number] CC:
--- NOTE | 2019-01-27 07:28 | NUR ---
HAND-OFF: Report given to DUARTE Curry. Patient is awake and eating breakfast, vS stable.
--- NOTE | 2019-01-27 07:32 | NUR ---
NURSE NOTES: Pt has one to one sitter for bx. Malay speaker able to answer questions appropriately
--- NOTE | 2019-01-27 07:35 | NUR ---
NURSE NOTES: all anticipated needs require to be 2 to baseline
[2019-01-27 08:00] VITALS: BP 127/64
[2019-01-27] MEDS: OLANZapine 2.5mg tab ORAL SCH ×3 (08:35→17:45)
[2019-01-27 12:00] VITALS: BP 138/72
--- NOTE | 2019-01-27 15:00 | NUR ---
CHARGE NURSE NOTE: Pt's friends at the bedside. No signs of aggression. mental status improved. Pt is behaving better. notified. Sitter order stopped.
--- NOTE | 2019-01-27 15:48 | NUR ---
CASE MANAGEMENT:REVIEW 01/27/19 SI: AMS 98.2 78 16 127/64 98% ON RA FLOMAX PO QHS ZYPREXA PO TID NORVASC PO QD PROTONIX PO QD : MED/SURG STATUS 3 EAST DCP: FROM [facility]
[2019-01-27 16:00] VITALS: BP 135/72
[2019-01-27] MEDS: Haloperidol 5mg/ml Inj IM PRN (16:14)
--- NOTE | 2019-01-27 16:15 | NUR ---
CHARGE NURSE NOTE: PT became agitated again, confused, trying get out of the bed, unsteady. Haldol 5 mg IM given. notified. Pt needs a sitter.
--- NOTE | 2019-01-27 19:39 | NUR ---
NURSE NOTES: Pt distractible with pen and paper,. Family friend here to see pt , son called to verify if it was okay to release information. Contact placed on facesheet. Pt required supervision impulsive bx. Verbalizing that he wanted to have a bowel movement in the hallway. Escorted to restroom. Remains on 1:1 at this time
--- NOTE | 2019-01-27 19:40 | NUR ---
NURSE NOTES: Report taken from DUARTE Curry. Patient is awake and in bed, sitter Florence at bedside. A&Ox2, not aware of where he is and needs reminding to stay in bed or ask for assistance. No signs of distress on room air. States that he is having some pain through bilateral LE, pain with palpation on bilateral shins, some light bruising noted. Patient does not remember if he hit is legs prior to coming to hospital. IV site c/d/i and patent. Skin is intact. Bed in lowest position, call light within reach.
[2019-01-27 20:00] VITALS: BP 144/87
[2019-01-27] MEDS: Tamsulosin 0.4mg cap ORAL SCH (20:14)
--- NOTE | 2019-01-27 21:31 | General Progress Note ---
Assessment/Plan Problem List: (1) Altered mental status ICD Codes: R41.82 - Altered mental status, unspecified SNOMED: 017414794 (2) Progressive dementia with uncertain etiology ICD Codes: F03.90 - Unspecified dementia without behavioral disturbance SNOMED: 97959634 Status: progressing Assessment/Plan: afebrile reviewed chart and labs dementia ams dc in am vitals stable Subjective ROS Limited/Unobtainable: Yes Allergies: Coded Allergies: No Known Allergies (Unverified , 12/07/18) Objective Last 24 Hour Vital Signs Date Time Temp Pulse Resp B/P (MAP) Pulse Ox O2 Delivery O2 Flow Rate FiO2 01/27/19 16:00 98.2 72 16 135/72 (93) 98 01/27/19 12:00 98.2 78 18 138/72 (94) 98 01/27/19 09:00 Room Air 01/27/19 08:38 77 123/74 01/27/19 08:00 98.2 78 16 127/64 (85) 98 01/27/19 04:00 97.7 72 22 122/79 (93) 97 01/27/19 00:00 98.2 78 20 124/85 (98) 97 Intake and Output 01/26/19 01/27/19 18:59 06:59 Intake Total 118 ml 140 ml Balance 118 ml 140 ml Intake Oral 118 ml 140 ml # Voids 4 3 Height (Feet): 5 Height (Inches): 7.00 Weight (Pounds): 170 General Appearance: confused Cardiovascular: normal rate Respiratory/Chest: lungs clear Abdomen: soft Guido Prieto MD Jan 27, 2019 21:31
[2019-01-27] MEDS: OLANZapine 2.5mg tab ORAL PRN (23:31)
--- NOTE | 2019-01-27 23:32 | Neurology Progress Note ---
Interim History Interim History ROS Limited/Unobtainable: Yes Complaints: AMS Events: None, labs/studies negative, BP stable Interim History This visit was conducted on January 27, [address] Ivan Humphreys. Review of Systems Neuro Review of Systems As per reports, patient has had periods of agitation, however he is sleeping following Zyprexa and Haldol administration today. Has reportedly been ambulatory and OOB walking down today. All Systems: reviewed and negative except above Objective Physical Exam Last Vital Signs Date Time Temp Pulse Resp B/P (MAP) Pulse Ox O2 Delivery O2 Flow Rate FiO2 01/27/19 21:00 Room Air 01/27/19 20:00 98.8 81 18 144/87 (106) 97 General: well developed, well nourished, no acute distress Head: normocophalic Neck: no rigidity EENT: benign Neurologic Exam Mental Status: awake, alert, other Speech: other Language: other Cranial Nerves III, IV, : PERRLA, EOMI, pupils Cranial Nerve V: normal facial sensations, temporales function normal, masseters function normal, pterygoids function normal Cranial Nerve VII: no facial asymmetry, normal facial expressions Cranial Nerve VIII: normal hearing, no nystagmus Cranial Nerve IX: normal palate elevation, gag response Cranial Nerve X: no voice hoarseness Cranial Nerve XI: SCM symmetric, trapezii function normal Cranial Nerve XII: other Motor System: other Sensory: other Coordination: other - Patient remains uncooperative with examination, does Impression/Recommendations Problems: (1) Altered mental status (2) Delirium (3) Dementia Status: progressing Recommendations Q4 Neuro OBs Recommend Seroquel regiment instead of Haldol/ Zyprexa as patient's episodes appear not to contain psychotic behaviors and he calms down and orients. Please avoid administration of Haldol or Ativan - No indication for imaging at this time. Maintain SBP<140 Normoglycemia with ISS Cynthia English N.P. Jan 27, 2019 23:32
[2019-01-28] VITALS: BP 141/97
[2019-01-28] MEDS: Haloperidol 5mg/ml Inj IM PRN (01:40)
--- NOTE | 2019-01-28 02:00 | Progress Note ---
DATE: 01/27/2019 SUBJECTIVE: The patient is presenting with impairment of cognition and not engaged during the evaluation due to cognitive impairment. The patient is calm. Sitter at bedside, who stated to me that the patient does not need a sitter. Discussed with the nurse, Marisol who has IM and p.r.n's available if the patient gets agitated, adamant against stopping the sitter as well as the charge nurse, Swapna. They both would like to, even the patient is calm, they would like the sitters to be continued. It was explained to them that the patient if gets agitated he needs to be chemically restrained with medication. We do not want the patient to suffer from agitation, therefore needs treatment. They for sitter. MENTAL STATUS EXAMINATION: The patient is alert, confused, disoriented. Mood is neutral. Affect is flat. Thought process is concrete. Thought content, no suicidal or homicidal ideations. ASSESSMENT: Stable. PLAN: We will continue current medications and provide the patient with reality orientation. Liz Casey M.D. DR: CHARLENE JOB#: [id number] CC:
--- NOTE | 2019-01-28 07:22 | NUR ---
HAND-OFF: Report given to DUARTE Melo. Patient is asleep, sitter at bedside. VS stable.
--- NOTE | 2019-01-28 07:29 | NUR ---
NURSE NOTES: Received report from DUARTE Crowe. Rounding done with outgoing nurse. Patient asleep. Sitter is at bedside. Bed in lowest position, call light within reach. Will continue to monitor.
[2019-01-28 08:00] VITALS: BP 138/84
--- NOTE | 2019-01-28 09:23 | NUR ---
NURSE NOTES: Dr. Prieto called and ordered d/c [place] , resume home meds, d/c hospital meds. Noted and carried out.
--- NOTE | 2019-01-28 10:25 | NUR ---
DISCHARGE PLANNED PATIENT WILL BE RETURNING TO [facility] ROOM [address] T: [phone] FOR NURSE TO NURSE REPORT [facility] HAS BEEN ARRANGED FOR [address] OPHTHALMOLOGIST RETINA SPECIALIST [employer] CALLED AND SPOKE WITH SON WHO IS IN AGREEMENT WITH DISCHARGE PLAN
--- NOTE | 2019-01-28 11:32 | NUR ---
NURSE NOTES: Report was given to Hawk, nursing water supervisor at [facility].
[2019-01-28 12:00] VITALS: BP 129/81
--- NOTE | 2019-01-28 13:55 | NUR ---
NURSE NOTES: Discharge instruction was given to EMT. Belongings checked with patient/EMT and given to EMT. IV line was removed. Arm band was removed. Pt discharged in stable condition.
--- NOTE | 2019-01-28 17:48 | Cardiology Report ---
APPROVED REPORT EKG Measurement Heart [id number] Sinus rhythm with 1st degree AV block Otherwise normal ECG
--- NOTE | 2019-01-29 06:30 | Progress Note ---
DATE: 01/28/2019 SUBJECTIVE: The patient is calm and cooperative. Continues to be confused and disoriented. He has episodes of agitation. Memory is impaired. MENTAL STATUS EXAMINATION: The patient is alert and is little disoriented. Mood is anxious. Affect is flat. Thought process, there is a paucity of thought content. Thought content, no suicidal or homicidal ideations. ASSESSMENT: Encephalopathy. PLAN: 1. We will continue current medications. 2. We will continue to follow and readjust the medications. Liz Casey M.D. DR: CLARK JOB#: [id number] CC:
--- NOTE | 2019-01-30 12:51 | NUR ---
CASE MANAGEMENT: CM review and clinical information (face sheet/ ER MD notes/ H&P) faxed to [facility] @ [phone].
--- NOTE | 2019-01-31 08:33 | Discharge Summary ---
Discharge Summary Discharge Summary _ DATE OF ADMISSION: January 25, 2019 DATE OF DISCHARGE: January 28, 2019 DISCHARGED BY: Dr Prieto REASON FOR ADMISSION: 78 years old male with past medical history of hypertension, GERD, dementia, resident of retirement facility, was sent for evaluation due to progressive confusion. His primary care provider was concerned, that he may have a urinary tract infection or other type of infection , causing him worsening confusion. Upon evaluation in emergency room vital signs were stable. Laboratory work-up revealed no leukocytosis , stable hemoglobin and hematocrit. Stable electrolytes , BUN 18, creatinine 1.2. Lactic acid 1.0. Troponin negative. Stable LFT. Urinalysis revealed +2 protein , but no evidence of urinary tract infection. EKG revealed sinus rhythm with first-degree AV block. Chest x-ray demonstrated no acute cardiopulmonary pathology. CT of the head showed chronic age-related changes, but was negative for acute intracranial bleeding or mass-effect. Patient subsequently was admitted for further evaluation and management. CONSULTANTS: neurologist Dr. Humphreys psychiatrist [facility] COURSE: Patient admitted to medical surgical floor. Patient received IV hydration initially. Renal parameters and electrolytes were closely monitored, nephrotoxics were avoided. Electrolytes remained stable. Blood culture came back negative. No evidence of infection. Blood pressure was managed with calcium channel kathi and remained stable. GI prophylaxis provided. Proscar and Flomax continued. No difficulty voiding. Neurologist and psychiatrist followed. Per psychiatrist, patient had dementia with behavioral disturbances. Patient started on Zyprexa 3 times a day along with Haldol as needed. Reality orientation and supportive therapy provided. Neurologist seen and evaluated patient , and diagnosed patient with delirium and dementia. Neuro-checks were done every 4 hours . Patient was working with physical therapy. Neurologist recommended avoid use of benzodiazepine, opioids and anticholinergic. CT of the head revealed no acute intracranial pathology. No MRI was indicated as per neurologist. Neurologist recommended to maintain systolic blood pressure below 140 and keep blood sugar in range. Patient clinically stabilized and was ready for transfer back to retirement facility for continuation of care. FINAL DIAGNOSES: Dementia with behavioral disturbances Delirium Dementia DISCHARGE MEDICATIONS: See Medication Reconciliation list. DISCHARGE INSTRUCTIONS: Patient was discharged to the retirement facility. Follow up with medical doctor at the facility. I have been assigned to dictate discharge summary for this account. I was not involved in the patient's management. Jessica Aiken NP Jan 31, 2019 08:33
== END 2019-01-28 14:03 | DRG 757 ==
LOC: EDBD 12:18 → EMR 15:28 → EDBEDREQ 16:29 → 3E 16:30 → OBSVTOIN 16:30 → EDBEDREQ 16:44 → INTOOBSV 20:00 → OBSVTOIN 20:00 → 3E 22:26
DX: F03.91 Unspecified dementia, unspecified severity, with behavioral disturbance (principal); I10 Essential (primary) hypertension; K21.9 Gastro-esophageal reflux disease without esophagitis; R45.1 Restlessness and agitation; I44.0 Atrioventricular block, first degree
CPT/HCPCS: 36415; 70450; 71045; 80048; 80053; 81003; 82550; 82553; 83605; 84484; 85025; 87040; 87081; 93005; 96360; 99285

== ENCOUNTER 2019-02-13 10:31 | Inpatient (IN) | payer MEDICARE, OTHER ==
[~2019-02-13] VITALS: Ht 162.6 cm; Wt 55.4 kg
[~2019-02-13 10:31] MED LIST: ACETAMINOPHEN325 M1 ORAL; AMLODIPINE BESYL5 MG ORAL; FLOMAX0.4 MG ORAL; MIRALAX17 G2 ORAL; NEXIUM20 MG ORAL; PROSCAR5 MG ORAL; ZOFRAN4 M3 ORAL
[2019-02-13 10:40] VITALS: BP 153/83
--- NOTE | 2019-02-13 11:00 | NUR ---
ED Nurse Note: pt to rm via bls crew. pt noted to have right leg external rotation and shortening s/p fall at [facility]. edema noted to right hip area also. pt with good cms to foot. pt noted to have skin tear to left upper arm, no active bleeding. pt follows commands and reamins alert. placed on telemetry monitoring
--- NOTE | 2019-02-13 11:14 | NUR ---
ED Nurse Note: pt to xray. tolerates iv start and lab draw well. straight cath urine obtained and sent.
[2019-02-13 11:19] LABS: HEMATOCRIT 39.4 % (42.0-52.0); HEMOGLOBIN 13.5 G/DL (14.2-18.0); MEAN CORPUSCULAR VOLUME 89 FL (80-99); PLATELET COUNT 309 K/UL (150-450); RED BLOOD COUNT 4.45 M/UL (4.70-6.10); RED CELL DISTRIBUTION WIDTH 12.7 % (11.6-14.8); WHITE BLOOD COUNT 12.3 K/UL (4.8-10.8)
[2019-02-13 11:24] LABS: ANION GAP 9 mmol/L (5-15); BLOOD UREA NITROGEN 20 mg/dL (7-18); CALCIUM 8.8 MG/DL (8.5-10.1); CARBON DIOXIDE 26 MMOL/L (21-32); CHLORIDE 103 MMOL/L (98-107); CREATININE 1.2 MG/DL (0.55-1.30); SODIUM 138 MMOL/L (136-145)
[2019-02-13 11:26] LABS: INR 0.9 (0.9-1.1)
[2019-02-13 11:29] LABS: ALANINE AMINOTRANSFERASE 22 U/L (12-78); ALBUMIN 3.8 G/DL (3.4-5.0); ALBUMIN/GLOBULIN RATIO 1.1 (1.0-2.7); ALKALINE PHOSPHATASE 110 U/L (46-116); ASPARTATE AMINO TRANSFERASE 21 U/L (15-37); BILIRUBIN,TOTAL 0.3 MG/DL (0.2-1.0)
--- NOTE | 2019-02-13 11:32 | NUR ---
ED Nurse Note: returned from xray
--- NOTE | 2019-02-13 11:49 | NUR ---
ED Nurse Note: mrsa, vre, cre swabs sent as per protocol. belongings list done
--- NOTE | 2019-02-13 12:13 | Diagnostic Imaging Report ---
EXAM: CT Pelvis Without Intravenous Contrast CLINICAL HISTORY: PAIN TECHNIQUE: Axial computed tomography images of the pelvis without intravenous contrast. CTDI is 10.54 mGy and DLP is 312 mGy-cm. One or more of the following dose reduction techniques were used: automated exposure control, adjustment of the mA and/or kV according to patient size, use of iterative reconstruction technique. Coronal and sagittal reformatted images were created and reviewed. COMPARISON: Right femur x-rays dated 02/13/19. CT abdomen and pelvis dated 12/07/18. FINDINGS: Bowel: Colonic diverticulosis without evidence of acute inflammation. No obstruction. No mucosal thickening. Appendix: No findings to suggest acute appendicitis. Intraperitoneal space: Unremarkable. No free air. No significant fluid collection. Bladder: Unremarkable. No stones. Reproductive: Enlarged prostate, impressing upon the urinary bladder base. The prostate gland and seminal vesicles otherwise appear unremarkable. Bones/joints: Comminuted fracture of the proximal right femoral diaphysis with mild foreshortening and approximately one-half shaft-width lateral displacement of the distal fragments. Otherwise no pelvic bone fracture identified. Multilevel degenerative changes throughout the visualized lower lumbar spine with disc space loss and endplate osteophytes. No dislocation. Soft tissues: Unremarkable. Vasculature: Atherosclerosis throughout the abdominal aorta and its proximal branches. No abdominal aortic aneurysm. Lymph nodes: Unremarkable. No enlarged lymph nodes. Other findings: Subtle discontinuity along the posterolateral margin of the right acetabula. IMPRESSION: 1. Comminuted fracture of the proximal right femoral diaphysis with mild foreshortening and approximately one-half shaft-width lateral displacement of the distal fragments. 2. Subtle discontinuity along the posterolateral margin of the right acetabula. This likely represents discontinuous degenerative osteophyte however cannot exclude subtle avulsion fracture. 3. Otherwise no pelvic bone fracture identified.
--- NOTE | 2019-02-13 12:14 | Diagnostic Imaging Report ---
EXAM: XR Right Femur, 2 Views CLINICAL HISTORY: PAIN TECHNIQUE: Frontal and lateral views of the right femur. COMPARISON: No relevant prior studies available. FINDINGS: Bones/joints: Comminuted fracture of the proximal femoral diaphysis with approximately one-half shaft-width lateral displacement of the distal fragment and mild foreshortening. Degenerative joint space loss in the right hip joint Soft tissues: Unremarkable. Vasculature: Vascular calcifications along the medial side. IMPRESSION: Comminuted fracture of the proximal femoral diaphysis with approximately one-half shaft-width lateral displacement of the distal fragment and mild foreshortening.
--- NOTE | 2019-02-13 12:50 | NUR ---
ED Nurse Note: Report given to DUARTE Ellison
--- NOTE | 2019-02-13 12:52 | NUR ---
ED Nurse Note: pt left unit with 1 anesthesia technician in stable condition.
[2019-02-13 13:10] VITALS: BP 150/97
--- NOTE | 2019-02-13 13:18 | Emergency Room Report ---
History of Present Illness General Chief Complaint: Multiple Trauma/Fall Source: Patient, Medical Record Present Illness HPI [age] yo M presents to ED c/o R hip pain s/p fall today. from SNF. has shortening of R leg with swelling. pain is sharp 10/10 non radiating. denies hitting his head or LOC. No injuries. No other aggravating or relieving factors. Denies any other associated symptoms Allergies: Coded Allergies: No Known Allergies (Unverified , 12/07/18) Patient History Past Medical History: HTN, GERD, dementia Past Surgical History: none Pertinent Family History: none Social History: Denies: smoking, alcohol use, drug use Immunizations: UTD Reviewed Nursing Documentation: PMH: Agreed; PSxH: Agreed Nursing Documentation-PMH Hx Hypertension: Yes Hx Cancer: No Hx Gastrointestinal Problems: Yes - GERD History Of Psychiatric Problem: Yes - Dementia Hx Neurological Problems: Yes Hx Dementia: Yes Review of Systems All Other Systems: negative except mentioned in HPI Physical Exam Vital Signs Date Time Temp Pulse Resp B/P (MAP) Pulse Ox O2 Delivery O2 Flow Rate FiO2 02/13/19 10:27 98.2 93 20 152/84 (106) 97 Room Air Sp02 EP Interpretation: reviewed, normal General Appearance: alert, GCS 15, non-toxic, mild distress Head: normocephalic Eyes: bilateral eye normal inspection, bilateral eye PERRL ENT: normal ENT inspection Neck: normal inspection Respiratory: chest non-tender, lungs clear, normal breath sounds, speaking full sentences Cardiovascular #1: regular rate, rhythm, no edema Gastrointestinal: normal bowel sounds, non tender, soft, non-distended, no guarding, no rebound Rectal: deferred Genitourinary: no CVA tenderness Musculoskeletal: decreased range of motion, swelling - R proximal femur Neurologic: alert, oriented x3, responsive, motor strength/tone normal, sensory intact, speech normal Psychiatric: normal inspection Skin: normal inspection Lymphatic: normal inspection Medical Decision Making Diagnostic Impression: Primary Impression: Femur fracture Qualified Codes: S72.91XA - Unspecified fracture of right femur, initial encounter for closed fracture ER Course Hospital Course 79-year-old male presents to ED with R hip pain and shortening s/p fall Differential diagnoses include: fracture, dislocation, contusion Clinical course Patient placed on stretcher. After initial history and physical I ordered labs , pain medication and imaging studies Labs reviewed-mild leukocytosis noted, electrolytes okay, hemoglobin/hematocrit okay EKG - NSR, no acute ischemic changes interpreted by me Femur x-ray shows fracture confirmed on CT Case discussed with Dr. Leggett who agreed to consult on this case. Case discussed with Dr. Prieto who agreed to accept the patient to his service for further care and support i. I feel this is a highly complex case requiring extensive working including EKG/Rhythm strip, Xray/CT/US, Blood/urine lab work, repeat exams while in ED, and administration of strong opiates/narcotics for pain control, admission to hospital or close patient follow up. Diagnosis - Femur fx Admitted to floor in serious condition Labs Test 02/13/19 11:00 White Blood Count 12.3 K/UL (4.8-10.8) Red Blood Count 4.45 M/UL (4.70-6.10) Hemoglobin 13.5 G/DL (14.2-18.0) Hematocrit 39.4 % (42.0-52.0) Mean Corpuscular Volume 89 FL (80-99) Mean Corpuscular Hemoglobin 30.4 PG (27.0-31.0) Mean Corpuscular Hemoglobin Concent 34.2 G/DL (32.0-36.0) Red Cell Distribution Width 12.7 % (11.6-14.8) Platelet Count 309 K/UL (150-450) Mean Platelet Volume 6.8 FL (6.5-10.1) Neutrophils (%) (Auto) % (45.0-75.0) Lymphocytes (%) (Auto) % (20.0-45.0) Monocytes (%) (Auto) % (1.0-10.0) Eosinophils (%) (Auto) % (0.0-3.0) Basophils (%) (Auto) % (0.0-2.0) Differential Total Cells Counted 100 Neutrophils % (Manual) 84 % (45-75) Lymphocytes % (Manual) 11 % (20-45) Monocytes % (Manual) 4 % (1-10) Eosinophils % (Manual) 1 % (0-3) Basophils % (Manual) 0 % (0-2) Band Neutrophils 0 % (0-8) Platelet Estimate Adequate Platelet Morphology Normal Red Blood Cell Morphology Normal Prothrombin Time 9.4 SEC (9.30-11.50) Prothromb Time International Ratio 0.9 (0.9-1.1) Activated Partial Thromboplast Time 30 SEC (23-33) Sodium Level 138 MMOL/L (136-145) Potassium Level 4.0 MMOL/L (3.5-5.1) Chloride Level 103 MMOL/L (98-107) Carbon Dioxide Level 26 MMOL/L (21-32) Anion Gap 9 mmol/L (5-15) Blood Urea Nitrogen 20 mg/dL (7-18) Creatinine 1.2 MG/DL (0.55-1.30) Estimat Glomerular Filtration Rate mL/min (>60) Glucose Level 119 MG/DL (74-106) Calcium Level 8.8 MG/DL (8.5-10.1) Total Bilirubin 0.3 MG/DL (0.2-1.0) Aspartate Amino Transf (AST/SGOT) 21 U/L (15-37) Alanine Aminotransferase (ALT/SGPT) 22 U/L (12-78) Alkaline Phosphatase 110 U/L (46-116) Total Protein 7.4 G/DL (6.4-8.2) Albumin 3.8 G/DL (3.4-5.0) Globulin 3.6 g/dL Albumin/Globulin Ratio 1.1 (1.0-2.7) EKG Diagnostic Results Rate: normal Rhythm: NSR ST Segments: no acute changes ASA given to the pt in ED: No Rhythm Strip Diag. Results EP Interpretation: yes Rhythm: NSR, no PVC's, no ectopy Other X-Ray Diagnostic Results Other X-Ray Diagnostic Results : X-Ray ordered: R femur # of Views/Limited Vs Complete: 2 View Indication: Pain EP Interpretation: Yes Interpretation: other - fx Impression: Other - fx Electronically Signed by: Electronically signed by Gerald Montalvo MD CT/MRI/US Diagnostic Results CT/MRI/US Diagnostic Results : Imaging Test Ordered: CT pelvis Impression 1. Comminuted fracture of the proximal right femoral diaphysis with mild foreshortening and approximately one-half shaft-width lateral displacement of the distal fragments. 2. Subtle discontinuity along the posterolateral margin of the right acetabula. This likely represents discontinuous degenerative osteophyte however cannot exclude subtle avulsion fracture. 3. Otherwise no pelvic bone fracture identified. Last Vital Signs Date Time Temp Pulse Resp B/P (MAP) Pulse Ox O2 Delivery O2 Flow Rate FiO2 02/13/19 11:40 88 20 Room Air 02/13/19 10:40 153/83 100 02/13/19 10:27 98.2 Status: improved Disposition: ADMITTED INPATIENT Condition: Serious Referrals: Guido Prieto MD (PCP) Gerald Montalvo MD Feb 13, 2019 13:17
--- NOTE | 2019-02-13 13:30 | NUR ---
NURSE NOTES: Patient arrived to unit at 1310 accompanied by certified phlebotomy technician via [facility]. Alert and oriented x1-2, marshallese speaking only. IV intact, belongings checked. Skin assessed, no skin issues except for approximately 2cm skin tear noted on left upper arm with some dried blood. Noted external rotation of right hip with swelling. Patient transferred to [facility] by certified phlebotomy technician and 2 RN's. Patient presents with extreme pain with movement but no pain when sitting still. Condom catheter applied as patient is incontinent. Patient oriented to room, fall precautions implemented. Side rails upx3, bed low and locked, call light in reach, bed alarm armed. Will contact MD for admission orders.
[2019-02-13] MEDS ORDERED: FLOMAX0.4 MG ORAL (14:18)
[2019-02-13] MEDS ORDERED: ACETAMINOPHEN325 M1 ORAL (14:18)
[2019-02-13] MEDS ORDERED: NEXIUM20 MG ORAL (14:18)
--- NOTE | 2019-02-13 15:22 | NUR ---
NURSE NOTES: Call Dr. Prieto for admission orders. Left voicemail with MD, awaiting callback with orders.
--- NOTE | 2019-02-13 15:38 | NUR ---
NURSE NOTES: Received callback from Dr. Prieto. Admission orders received and entered. did not order DVT prophylaxis at this time, stated to contact Dr. Leggett for DVT prophylaxis.
--- NOTE | 2019-02-13 15:53 | NUR ---
NURSE NOTES: Called Dr. Leggett. Orders received and entered. Called patient's son Idris Morrison (as listed in chart), and left voicemail to call back regarding consent for procedure. Awaiting call back.
--- NOTE | 2019-02-13 16:38 | Consultation ---
History of Present Illness General Date patient seen: Feb 13, 2019 Chief Complaint: Present Illness Allergies: Coded Allergies: No Known Allergies (Unverified , 12/07/18) Medication History Scheduled Amlodipine Besylate* (Amlodipine Besylate*), 5 MG ORAL DAILY, (Reported) Esomeprazole Magnesium (Nexium), 20 MG ORAL DAILY, (Reported) Finasteride* (Proscar*), 5 MG ORAL DAILY, (Reported) Polyethylene Glycol 3350* (Miralax*), 17 GM ORAL DAILY, (Reported) Tamsulosin HCl (Flomax), 0.4 MG ORAL BEDTIME, (Reported) Scheduled PRN Acetaminophen* (Acetaminophen 325MG Tablet*), 650 MG ORAL Q6H PRN for Mild Pain (Pain Scale 1-3), (Reported) Acetaminophen* (Acetaminophen 325MG Tablet*), 650 MG ORAL Q6H PRN for temp above 101, (Reported) Ondansetron* (Zofran*), 4 MG ORAL Q8HR PRN for Nausea & Vomiting, (Reported) Discontinued Medications Esomeprazole Magnesium (Nexium), 20 MG ORAL DAILY, (Reported) Discontinued Reason: Pt had allergic rxn Tamsulosin HCl (Flomax), 0.4 MG ORAL DAILY, (Reported) Discontinued Reason: Pt had allergic rxn Patient History Healthcare decision maker Idris Paul Jr Resuscitation status Full Code Advanced Directive on File Physical Exam Last 24 Hour Vital Signs Date Time Temp Pulse Resp B/P (MAP) Pulse Ox O2 Delivery O2 Flow Rate FiO2 02/13/19 13:10 97.6 96 18 150/97 (114) 97 02/13/19 12:50 98.2 88 20 153/83 100 Room Air 02/13/19 11:40 88 20 Room Air 02/13/19 10:40 88 20 153/83 100 Room Air 02/13/19 10:27 98.2 93 20 152/84 (106) 97 Room Air Laboratory Tests Test 02/13/19 11:00 White Blood Count 12.3 K/UL (4.8-10.8) H Red Blood Count 4.45 M/UL (4.70-6.10) L Hemoglobin 13.5 G/DL (14.2-18.0) L Hematocrit 39.4 % (42.0-52.0) L Mean Corpuscular Volume 89 FL (80-99) Mean Corpuscular Hemoglobin 30.4 PG (27.0-31.0) Mean Corpuscular Hemoglobin Concent 34.2 G/DL (32.0-36.0) Red Cell Distribution Width 12.7 % (11.6-14.8) Platelet Count 309 K/UL (150-450) Mean Platelet Volume 6.8 FL (6.5-10.1) Neutrophils (%) (Auto) % (45.0-75.0) Lymphocytes (%) (Auto) % (20.0-45.0) Monocytes (%) (Auto) % (1.0-10.0) Eosinophils (%) (Auto) % (0.0-3.0) Basophils (%) (Auto) % (0.0-2.0) Differential Total Cells Counted 100 Neutrophils % (Manual) 84 % (45-75) H Lymphocytes % (Manual) 11 % (20-45) L Monocytes % (Manual) 4 % (1-10) Eosinophils % (Manual) 1 % (0-3) Basophils % (Manual) 0 % (0-2) Band Neutrophils 0 % (0-8) Platelet Estimate Adequate Platelet Morphology Normal Red Blood Cell Morphology Normal Prothrombin Time 9.4 SEC (9.30-11.50) Prothromb Time International Ratio 0.9 (0.9-1.1) Activated Partial Thromboplast Time 30 SEC (23-33) Sodium Level 138 MMOL/L (136-145) Potassium Level 4.0 MMOL/L (3.5-5.1) Chloride Level 103 MMOL/L (98-107) Carbon Dioxide Level 26 MMOL/L (21-32) Anion Gap 9 mmol/L (5-15) Blood Urea Nitrogen 20 mg/dL (7-18) H Creatinine 1.2 MG/DL (0.55-1.30) Estimat Glomerular Filtration Rate mL/min (>60) Glucose Level 119 MG/DL (74-106) H Calcium Level 8.8 MG/DL (8.5-10.1) Total Bilirubin 0.3 MG/DL (0.2-1.0) Aspartate Amino Transf (AST/SGOT) 21 U/L (15-37) Alanine Aminotransferase (ALT/SGPT) 22 U/L (12-78) Alkaline Phosphatase 110 U/L (46-116) Total Protein 7.4 G/DL (6.4-8.2) Albumin 3.8 G/DL (3.4-5.0) Globulin 3.6 g/dL Albumin/Globulin Ratio 1.1 (1.0-2.7) Height (Feet): 5 Height (Inches): 4.00 Weight (Pounds): 129 Medications Current Medications Medications (Trade) Dose Ordered Sig/Phong Route PRN Reason Start Time Stop Time Status Last Admin Dose Admin Acetaminophen (Tylenol) 650 mg Q6H PRN ORAL Mild Pain (Pain Scale 1-3) 02/13/19 15:30 03/15/19 15:29 Acetaminophen (Tylenol) 650 mg Q6H PRN ORAL temp above 101 02/13/19 15:30 03/15/19 15:29 Amlodipine Besylate (Norvasc) 5 mg DAILY ORAL 02/14/19 09:00 03/16/19 08:59 Finasteride (Proscar) 5 mg DAILY ORAL 02/14/19 09:00 03/16/19 08:59 Morphine Sulfate (Morphine Sulfate) 2 mg Q4H PRN IVP Severe Pain (Pain Scale 7-10) 02/13/19 15:30 02/20/19 15:29 Ondansetron HCl (Zofran) 4 mg Q8H PRN ORAL Nausea & Vomiting 02/13/19 15:30 03/15/19 15:29 Polyethylene Glycol (Miralax) 17 gm DAILY ORAL 02/14/19 09:00 03/16/19 08:59 Sodium Chloride 1,000 ml @ 75 mls/hr [id number] IV 02/14/19 00:00 03/16/19 00:00 Tamsulosin HCl (Flomax) 0.4 mg BEDTIME ORAL 02/13/19 21:00 03/15/19 20:59 Assessment/Plan Assessment/Plan: (1) Right hip pain (2) Right hip Fx (3) S/p fall (4) Dementia seen dictated Jacques Jimenez Feb 13, 2019 16:38
--- NOTE | 2019-02-13 16:53 | NUR ---
CASE MANAGEMENT: INITIAL REVIEW 79 YO M HIMA FROM [facility] CC: MULTIPLE FALL/TRAUMA PMHx: HTN. GERD. DEMENTIA. SI:RIGHT HIP FRACTURE. T 98.2 HR 93 RR 20 B/P 152/84 SATS 97% ON RA WBC 12.3 BUN 20 GLU 119 IS: CT PELVIS (IMPRESSION:1. Comminuted fracture of the proximal right femoral diaphysis with mild foreshortening and approximately one-half shaft-width lateral displacement of the distal fragments) FEMUR XRAY (IMPRESSION:Comminuted fracture of the proximal femoral diaphysis with approximately one-half shaft-width lateral displacement of the distal fragment and mild foreshortening) PATIENT ADMITTED TO MED/SURG 02/13/2019 @ 1200 DCP: PATIENT TO BE DISCHARGED TO HOME ONCE MEDICALLY CLEARED. PLAN OF CARE: ORTHO CONSULT Addendum: 02/13/19 at 1911 by Criselda Barry CM INTERQUAL MET
--- NOTE | 2019-02-13 17:00 | NUR ---
NURSE NOTES: Patient self removed condom catheter three times. Educated patient that due to incontinence he will need to be cleaned frequently and it could cause discomfort and pain in his right leg, patient still refuses to keep condom catheter on.
--- NOTE | 2019-02-13 17:15 | Consultation ---
DATE OF CONSULTATION: 02/13/2019 PAIN MANAGEMENT CONSULTATION CONSULTING PHYSICIAN: Carmita Tapia M.D. REFERRING PHYSICIAN: Guido Prieto M.D. PHYSICIAN BLIND HANGER: Gabriel Bonds CHIEF COMPLAINT: Right hip pain. HISTORY OF PRESENT ILLNESS: This is an 79-year-old male, who is being seen on the Med/Surg floor of [facility] for initial pain management consultation. The patient was admitted under the care of Dr. Prieto status post fall and found to have [facility] He had severe pain in his right hip. An x-ray showed a right hip fracture and was admitted to the hospital. He has a history of dementia. He, at this time, is showing no signs of pain or distress and denies pain. He was started on morphine 2 mg IV every 4 hours as needed for severe pain. However, he has not requested any upon admission, waiting to be seen by orthopedic surgeon. PAST MEDICAL HISTORY: Hypertension, gastroesophageal reflux disease, and dementia. PAST SURGICAL HISTORY: No noted as per chart. MEDICATIONS: Amlodipine, Nexium, Proscar, MiraLAX, Flomax, Tylenol, and Zofran. ALLERGIES: No known drug allergies. SOCIAL HISTORY: As per chart, no smoking tobacco, no drinking alcohol, and no intravenous drug abuse. REVIEW OF SYSTEMS: Complaining of right hip pain upon movement. Denies rash, fever, chills, sweating, dizziness, drowsiness, sore throat, blurred vision, or change in weight. No shortness of breath or chest pain. No nausea, vomiting, or blood in the stool or urine. No dysuria. PHYSICAL EXAMINATION: GENERAL: Alert and awake. VITAL SIGNS: Blood pressure 150/97, heart rate 76, oxygen saturation 95%, respiratory rate 18, and temperature is 98.6 degrees Fahrenheit. HEENT: PERRLA. NECK: Range of motion is full in all directions. No tenderness to paracervical muscles. No adenopathy. LUNGS: Decreased breath sounds bilaterally. HEART: S1 and S2 regular. ABDOMEN: Soft and nontender. EXTREMITIES: Right lower extremity range of motion is decreased due to the patient's condition. Tenderness to palpation in the right hip. ASSESSMENT AND PLAN: This is an 79-year-old male with right hip fracture, right hip pain status post fall, and dementia. The patient will be continued on morphine as needed and waiting to be seen by orthopedic surgeon. The patient was discussed with Dr. Tapia and Dr. Tapia concurred. We will follow the patient. Thank you very much for the courtesy of this consultation. Carmita Tapia M.D. LATA Bonds DR: VALERIE JOB#: [id number] CC:
--- NOTE | 2019-02-13 19:00 | NUR ---
HAND-OFF: Report given to Britt RAMACHANDRAN. Endorsed to follow up regarding obtaining consent for surgery.
[2019-02-13 20:00] VITALS: BP 133/81
--- NOTE | 2019-02-13 20:30 | NUR ---
Received a report from DUARTE Ellison. Pt is awake with confusion. Breathing is even and non labored. No acute distress noted. Currently no pain complaint leg but noted swelling on right thigh with external rotation. Both L/E on SCDs. Leave call light within reach. Will continue to monitor.
[2019-02-13] MEDS: Tamsulosin 0.4mg cap ORAL SCH (20:39)
--- NOTE | 2019-02-13 22:00 | NUR ---
NURSE NOTES: Incontinence noted. Linen change is done but noted severe pain d/t position change. Administered prn Morphin IV. Pt removed condom catheter by himself earlier. Reapplied condom catheter for immobility d/t right leg pain from fx. Reinforce to keep it. Will continue to monitor.
--- NOTE | 2019-02-13 22:15 | NUR ---
NURSE NOTES: Attempted to contact pt's and son re: surgical consent but no one answered; staff member from SNF suggested to call in AM and speak to social services coordinator. Will endorse to morning shift nurse.
[2019-02-13] MEDS: Morphine Sulfate 2mg/ml Inj(IV/IM USE ONLY) IVP PRN (22:36)
--- NOTE | 2019-02-13 22:45 | History and Physical Report ---
DATE OF ADMISSION: 02/13/2019 HISTORY OF PRESENT ILLNESS: The patient came in complaining of pain in the right hip, admitted for comminuted fracture of the right femur diaphysis. The patient is a poor historian, cannot get reliable history from the patient. The patient presents today status post fall, has shortening of the right leg with swelling. Pain is 10/10 in that area. PAST MEDICAL HISTORY: Dementia, GERD, hypertension. PAST SURGICAL HISTORY: Denies, however, poor historian. FAMILY HISTORY: Noncontributory. SOCIAL HISTORY: Denies smoking, alcohol, illicit drugs. Comes from a assisted. REVIEW OF SYSTEMS: HEENT: Denies headaches. RESPIRATORY: Denies shortness of breath. Denies cough. CARDIOVASCULAR: Denies chest pain. GASTROINTESTINAL: Denies nausea, vomiting, or diarrhea EXTREMITIES: Reports hip pain 10/10 on the right hip. CENTRAL NERVOUS SYSTEM: Denies change in vision or speech pattern, otherwise poor historian. PHYSICAL EXAMINATION: VITAL SIGNS: Temperature 98.2, pulse 92, blood pressure 150/84. HEENT: PERRLA. NECK: Supple. No lymphadenopathy. CHEST: Clear to auscultation. CARDIOVASCULAR: Regular rate and rhythm. ABDOMEN: Soft. No organomegaly. EXTREMITIES: Right leg is short and externally rotated, swollen. . LABORATORY DATA: WBC of 12.3, hemoglobin 13.5, and platelets of 309. Sodium 138, potassium 4, BUN of , creatinine 1.1. ASSESSMENT AND PLAN: Comminuted fracture of the right femoral diaphysis as well as hypertension. Dr. Helms, Dr. Leggett, and have been consulted for hypertension as well as for the repair of the fracture and pain management. Guido Prieto M.D. DR: Jessica JOB#: [id number] CC:
[2019-02-14] VITALS (16 sets, daily range): BP systolic 117–157; BP diastolic 57–89
[2019-02-14] MEDS: Morphine Sulfate 2mg/ml Inj(IV/IM USE ONLY) IVP PRN ×4 (04:14→14:31)
--- NOTE | 2019-02-14 07:27 | NUR ---
HAND-OFF: Report given to DUARTE Curry.
--- NOTE | 2019-02-14 07:39 | NUR ---
NURSE NOTES: Pt awake , has periods of confusion, Anticipated needs require to be met. Safety measures require to be met, due to impulsive bx. Call light is in reach, frequent rounds will be made
--- NOTE | 2019-02-14 07:45 | NUR ---
NURSE NOTES: Food Service Aide attempted to reach son to inform him about the required consent , for surgery s/p hip fracture. . Verbal message left. Facility called at to inquire if they had a different number listed. Facility provided with the same number listed on facesheet.
[2019-02-14] MEDS: Miralax 17gm pkt ORAL SCH (08:34)
--- NOTE | 2019-02-14 08:45 | General Progress Note ---
Assessment/Plan Assessment/Plan: (1) Right hip pain (2) Right hip Fx (3) S/p fall (4) Dementia Patient to be continued on Morphine D/w Dr. Tapia and he concurred. Subjective Date patient seen: Feb 14, 2019 Time patient seen: 07:30 - am Allergies: Coded Allergies: No Known Allergies (Unverified , 12/07/18) Subjective REVIEW OF SYSTEMS: Complaining of right hip pain upon movement. Denies rash, fever, chills, sweating, dizziness, drowsiness, sore throat, blurred vision, or change in weight. No shortness of breath or chest pain. No nausea, vomiting, or blood in the stool or urine. No dysuria. SUBJECTIVE: Patient is in bed showing no signs of pain or distress. Was given 3 doses of Morphine in the last 24hrs. Waiting for surgery on the right hip. Objective Last 24 Hour Vital Signs Date Time Temp Pulse Resp B/P (MAP) Pulse Ox O2 Delivery O2 Flow Rate FiO2 02/14/19 08:34 88 137/76 02/14/19 04:00 97.8 86 16 157/89 (111) 98 02/14/19 00:00 98.8 80 20 138/84 (102) 99 02/13/19 21:00 Room Air 02/13/19 20:00 98.0 84 18 133/81 (98) 98 02/13/19 13:30 Room Air 02/13/19 13:10 97.6 96 18 150/97 (114) 97 02/13/19 12:50 98.2 88 20 153/83 100 Room Air 02/13/19 11:40 88 20 Room Air 02/13/19 10:40 88 20 153/83 100 Room Air 02/13/19 10:27 98.2 93 20 152/84 (106) 97 Room Air Intake and Output 02/13/19 02/14/19 19:00 07:00 Intake Total 400 ml 450 ml Balance 400 ml 450 ml Intake Oral 400 ml 0 ml IV Total 450 ml # Voids 3 3 Laboratory Tests 02/13/19 11:00: White Blood Count 12.3H, Red Blood Count 4.45L, Hemoglobin 13.5L, Hematocrit 39.4L, Mean Corpuscular Volume 89, Mean Corpuscular Hemoglobin 30.4, Mean Corpuscular Hemoglobin Concent 34.2, Red Cell Distribution Width 12.7, Platelet Count 309, Mean Platelet Volume 6.8, Neutrophils (%) (Auto) , Lymphocytes (%) ( Auto) , Monocytes (%) (Auto) , Eosinophils (%) (Auto) , Basophils (%) (Auto) , Differential Total Cells Counted 100, Neutrophils % (Manual) 84H, Lymphocytes % (Manual) 11L, Monocytes % (Manual) 4, Eosinophils % (Manual) 1, Basophils % ( Manual) 0, Band Neutrophils 0, Platelet Estimate Adequate, Platelet Morphology Normal, Red Blood Cell Morphology Normal, Prothrombin Time 9.4, Prothromb Time International Ratio 0.9, Activated Partial Thromboplast Time 30, Sodium Level 138, Potassium Level 4.0, Chloride Level 103, Carbon Dioxide Level 26, Anion Gap 9, Blood Urea Nitrogen 20H, Creatinine 1.2, Estimat Glomerular Filtration Rate , Glucose Level 119H, Calcium Level 8.8, Total Bilirubin 0.3, Aspartate Amino Transf (AST/SGOT) 21, Alanine Aminotransferase (ALT/SGPT) 22, Alkaline Phosphatase 110, Total Protein 7.4, Albumin 3.8, Globulin 3.6, Albumin/Globulin Ratio 1.1 Height (Feet): 5 Height (Inches): 4.00 Weight (Pounds): 129 Objective GENERAL: Alert and awake. LUNGS: Decreased breath sounds bilaterally. HEART: S1 and S2 regular. ABDOMEN: Soft and nontender. EXTREMITIES: No CCCE NEURO: No changes. Jacques Jimenez Feb 14, 2019 08:45
--- NOTE | 2019-02-14 09:08 | NUR ---
NURSE NOTES: Son Idris Paul called back , informed that father was readmitted to [facility] s/p fall at the SNF. As the result of fall pt requires hip fracture repair ORIF right hip. Risk and benefit explained. Gave verbal consent , for procedure. Charge Nurse Zay verified consent. Per son was not aware that father had broken his hip, until typewriter ribbon winder phone call today. Did not have further questions. States he is out of town at this time and will not be back till Thursday to check on his father.
--- NOTE | 2019-02-14 10:25 | NUR ---
CASE MANAGEMENT:REVIEW 02/14/19 SI:RT HIP FRACTURE PENDING ORIF 97.8 86 16 157/89 98% ON RA IS: NORVASC PO QD IVF@75/HR FLOMAX PO QHS IV MORPHINE Q4HRS : MED/SURG STATUS 3 EAST PLAN: SURGERY
--- NOTE | 2019-02-14 11:22 | NUR ---
NURSE NOTES: Pt has been sleeping since morphine was provided. Required frequent monitoring for attempting to remove IV line. pt began yelling " You told me to take this off Im trying now you are telling me not to take it off1" attempted to redirect and distract bx. Current plan of care will be follwed
[2019-02-14] MEDS ORDERED: 1/2 NS 1000ml IV ONE (14:15)
--- NOTE | 2019-02-14 15:02 | NUR ---
NURSE NOTES: Dr Prieto phoned to report pt combative bx . Striking out pt is restless and guarding leg. Leather Repairer was attempting to give pain medication, and pt scratched director underwriter sales on arm in [place] stated " I will Fuck you up" co worker called for assistance. Did not strike while coworker was in room. Able to provide pain medication. Dr Stock gave instructions to call Dr Leyva for psych , and Dr Dunaway for cardio. Dr Leggett phoned and made aware of possible delay.
--- NOTE | 2019-02-14 15:26 | NUR ---
NURSE NOTES: Idris Paul Jr phoned for consent for blood . Gave telephone consent. Pt is not Jehovah witness
[2019-02-14] MEDS ORDERED: LORazepam Inj 2mg/ml 1ml IM SCH (15:30)
--- NOTE | 2019-02-14 15:38 | NUR ---
NURSE NOTES: Son made aware of pt combative bx Dr Leyva gave orders for Ativan 1 mg IM once
--- NOTE | 2019-02-14 15:57 | Cardiac Electrophysiology PN ---
Subjective Subjective Pt seen and examined and Consult dictated [id number] ECG nonischemic. Echo NL EF. No LA or CHF OK to proceed with Hip ORIF at moderate risk. No further cardiac testing necessary prior to surgery DW Dr Leggett and Conner and RN Objective Last 24 Hour Vital Signs Date Time Temp Pulse Resp B/P (MAP) Pulse Ox O2 Delivery O2 Flow Rate FiO2 02/14/19 12:00 97.6 85 18 140/81 (100) 02/14/19 09:00 Room Air 02/14/19 08:34 88 137/76 02/14/19 08:00 98.1 87 20 137/76 (96) 100 02/14/19 04:00 97.8 86 16 157/89 (111) 98 02/14/19 00:00 98.8 80 20 138/84 (102) 99 02/13/19 21:00 Room Air 02/13/19 20:00 98.0 84 18 133/81 (98) 98 Intake and Output 02/13/19 02/14/19 19:00 07:00 Intake Total 400 ml 450 ml Balance 400 ml 450 ml Intake Oral 400 ml 0 ml IV Total 450 ml # Voids 3 3 Niranjan Campbell MD Feb 14, 2019 15:57
[2019-02-14] MEDS ORDERED: Duramorph PF 5mg/10ml amp ONE (15:58)
[2019-02-14] MEDS ORDERED: Ketorolac 30mg Inj ONE (15:58)
[2019-02-14] MEDS ORDERED: Bacitracin 50000 Units Vial ONE (15:59)
[2019-02-14] MEDS ORDERED: LR 1000ml ONE (16:00)
[2019-02-14] MEDS ORDERED: Sterile Water Irrig 1000ml IRRIG ONE (16:00)
[2019-02-14] MEDS ORDERED: Midazolam 2mg/2ml Inj ONE (16:10)
[2019-02-14] MEDS ORDERED: fentaNYL 100 mcg/2 mL IV ONE (16:10)
--- NOTE | 2019-02-14 16:19 | Anethesia Preoperative Eval ---
Anesthesia Pre-op PMH/ROS General Date of Evaluation: Feb 14, 2019 Time of Evaluation: 16:19 Anesthesiologist: melvi ASA Score: ASA 3 Mallampati Score Class I : Soft palate, uvula, fauces, pillars visible Class II: Soft palate, uvula, fauces visible Class III: Soft palate, base of uvula visible Class IV: Only hard plate visible Mallampati Classification: Class III Surgeon: carey Diagnosis: hip fx Surgical Procedure: ORIF R Hip Anesthesia History: none Family History: no anesthesia problems Allergies: Coded Allergies: No Known Allergies (Unverified , 12/07/18) Patient NPO?: Yes NPO Date: Feb 14, 2019 NPO Time: 0000 Past Medical History Cardiovascular: Reports: HTN, CAD Pulmonary: Denies: asthma, COPD, [place], other Gastrointestinal/Genitourinary: Reports: GERD; Denies: CRI, ESRD, other Neurologic/Psychiatric: Reports: dementia - hx of dementia and delirum; Denies: CVA, depression/anxiety, TIA, other Endocrine: Denies: DM, hypothyroidism, steroids, other HEENT: Denies: cataract (L), cataract (R), glaucoma, [place] (L), [place] (R), other Hematology/Immune: Denies: anemia, DVT, bleeding disorder, other Musculoskeletal/Integumentary: Reports: OA Anesthesia Pre-op Phys. Exam Physician Exam Last Vital Signs Date Time Temp Pulse Resp B/P (MAP) Pulse Ox O2 Delivery O2 Flow Rate FiO2 02/14/19 12:00 97.6 85 18 140/81 (100) 02/14/19 09:00 Room Air 02/14/19 08:00 100 Constitutional: NAD Neurologic: other - oriented to person only Cardiovascular: RRR Respiratory: CTA Gastrointestinal: S/NT/ND Airway Exam Mallampati Classification 2 Mallampati Score: Class III MO: limited ROM: limited Anesthesia Pre-op A/P Studies Pre-op Studies: EKG - sr Risk Assessment & Plan Assessment: vitals stable Plan: general Status Change Before Surgery: No Pre-Antibiotics Drug: ancef Given Within 1 Hr of Incision: Yes Time Given: 16:40 Lacey Wade CRNA Feb 14, 2019 16:19
--- NOTE | 2019-02-14 16:19 | NUR ---
NURSE NOTES: Report given to Drea, will take over pt
--- NOTE | 2019-02-14 16:20 | NUR ---
NURSE NOTES: Patient is in bed awake. Pre-op nurse at bedside. Patient taken to surgery via hospital bed.
--- NOTE | 2019-02-14 16:24 | Pre-Procedure Note/Attestation ---
Pre-Procedure Note/Attestation Complete Prior to Procedure Planned Procedure: right Procedure Narrative: femur orif Indications for Procedure Pre-Operative Diagnosis: right femur fracture Attestation I attest that I discussed the nature of the procedure; its benefits; risks and complications; and alternatives (and the risks and benefits of such alternatives ), prior to the procedure, with the patient (or the patient's legal cash application representative). I attest that, if there was a reasonable possibility of needing a blood transfusion, the patient (or the patient's legal cash application representative) was given the [facility] standardized written summary, pursuant to the Manuel Emery Blood Safety Act ([place] Health and Safety Code # 1645, as amended). I attest that I re-evaluated the patient just prior to the surgery and that there has been no change in the patient's H&P, except as documented below: Angel Leggett MD Feb 14, 2019 16:24
--- NOTE | 2019-02-14 16:25 | Operative Note - PDOC ---
Operative Note Operative Note Pre-op Diagnosis: right femur fracture Procedure: see op report Post-op Diagnosis: same as pre-op plus Operative Findings: consistent w/pre-op dx studies Anesthesia: regional Specimen: none Complications: none Condition: stable Estimated Blood Loss: none Implant(s) used?: Yes Angel Leggett MD Feb 14, 2019 16:25
[2019-02-14] MEDS ORDERED: Morphine Sulfate 2mg/ml Inj(IV/IM USE ONLY) IVP PRN ×2 (16:30)
[2019-02-14] MEDS ORDERED: Milk of Magnesia 30ml Ud ORAL PRN (16:30)
[2019-02-14] MEDS ORDERED: HYDROcodone/Acetamin 5/325 tab ORAL PRN (16:30)
[2019-02-14] MEDS ORDERED: Phenylephrine 10mg/ml Vial ONE (16:57)
[2019-02-14] MEDS ORDERED: Lidocaine 1% MPF 10mg/ml 5ml ONE (16:57)
[2019-02-14] MEDS ORDERED: Propofol 200mg/20ml IV ONE (16:57)
[2019-02-14] MEDS ORDERED: Metoclopramide 10mg/2ml Inj ONE (16:57)
[2019-02-14] MEDS ORDERED: NS Irrig 1000ml IRRIG ONE (17:08)
--- NOTE | 2019-02-14 17:55 | Immediate Post-Op Evaluation ---
Immediate Post-Op Evalulation Immediate Post-Op Evalulation Procedure: ORIF Right Hip Date of Evaluation: Feb 14, 2019 Time of Evaluation: 17:55 IV Fluids: 600 Blood Pressure Systolic: 137 Blood Pressure Diastolic: 82 Pulse Rate: 97 Respiratory Rate: 14 O2 Sat by Pulse Oximetry: 100 Temperature (Fahrenheit): 97.7 Nausea: No Vomiting: No Complications none Patient Status: awake, reacts, patent Hydration Status: adequate Drug: ancef Given Within 1 Hr of Incision: Yes Time Given: 16:40 Lacey Wade CRNA Feb 14, 2019 17:55
[2019-02-14] MEDS ORDERED: LORazepam Inj 2mg/ml 1ml IV PRN (18:00)
[2019-02-14] MEDS ORDERED: fentaNYL 100 mcg/2 mL IV PRN (18:00)
[2019-02-14] MEDS ORDERED: Hydromorphone 0.5mg/0.5ml inj IVP PRN (18:00)
[2019-02-14] MEDS ORDERED: Metoclopramide 10mg/2ml Inj IVP PRN (18:00)
--- NOTE | 2019-02-14 18:30 | Consultation ---
DATE OF CONSULTATION: 02/14/2019 CARDIOLOGY CONSULTATION CONSULTING PHYSICIAN: Niranjan Campbell M.D. REFERRING PHYSICIAN: Guido Prieto M.D. REASON FOR CONSULTATION: Preoperative clearance for hip surgery. HISTORY OF PRESENT ILLNESS: The patient is an 79-year-old gentleman with history of hypertension, gastroesophageal reflux disease, and dementia who presented to the emergency room with right hip pain [facility]. The patient has shortening of right leg with swelling, severe 10/10 and sharp pain. Denies loss of consciousness. No other injuries. At the time of my evaluation, the patient is able to lie flat in the bed. Denies any chest pain or shortness of breath. REVIEW OF SYSTEMS: Review of systems was negative other than what is mentioned in the history of present illness. PAST MEDICAL HISTORY: As mentioned above. FAMILY HISTORY: Noncontributory. SOCIAL HISTORY: He lives in group home. Does not smoke or drink alcohol. PHYSICAL EXAMINATION: VITAL SIGNS: Show blood pressure 152/84, pulse 93, respirations 18, and he is afebrile. HEAD AND SHOWED: No JVD or carotid bruits. LUNGS: Clear. CARDIOVASCULAR: Regular S1 and S2 with no gallop or murmur. ABDOMEN: Soft. EXTREMITIES: No pitting edema. The right femur is tender. LABORATORY AND DIAGNOSTIC DATA: White count 12.3, hemoglobin of 13.5, hematocrit 39.4, and platelet count of 309. Sodium 138, potassium 4.0, BUN of 20, and creatinine 1.7, glucose of 119. INR is 0.9. EKG shows sinus rhythm with first-degree AV block. ASSESSMENT AND PLAN: 1. Hypertension. Blood pressure stable. Amlodipine 5 mg daily. 2. Status post fall, resulting with right hip fracture. The patient denies any prior myocardial infarction or congestive heart failure. EKG is nonischemic. She is able to lie flat in the bed without any discomfort. An echocardiogram was performed that showed normal left ventricular systolic function with no significant valvular pathology. The patient is cleared from cardiac standpoint and proceed with right hip open reduction and internal fixation. 3. Benign prostatic hypertrophy on Proscar. 4. Dementia management per Dr. Casey. Thank you very much for allowing me to participate in the care of this patient. Please do not hesitate to contact me for any questions regarding my evaluation. Sincerely, Niranjan Campbell M.D. DR: eHnrik JOB#: [id number] CC:
--- NOTE | 2019-02-14 18:58 | NUR ---
NURSE NOTES: Patient arrived on unit assisted by 2 ELECTRICAL ASSEMBLIES SUPERVISOR. Patient is stable. Denies pain or SOB. Surgical dressing is clean, dry, and intact. Ice pack in place as ordered. VSS. Patient encouraged to use call light for assistance, verbalized understanding. Patient is in bed in locked and lowest position with call light within reach. Will continue to monitor.
--- NOTE | 2019-02-14 19:00 | Consultation ---
DATE OF CONSULTATION: 02/13/2019 CHIEF COMPLAINT: Right hip pain. HISTORY OF PRESENT ILLNESS: The patient is an 79-year-old gentleman, who presents with complaints of right hip pain. The patient had imaging studies, which showed subtrochanteric fracture. Orthopedic consultation obtained for further care and recommendation. PAST MEDICAL HISTORY: Reviewed per intake chart. PAST SURGICAL HISTORY: Reviewed per intake chart. MEDICATIONS: Reviewed per intake chart. PHYSICAL EXAMINATION: GENERAL: The patient is alert. He is resting comfortably on exam bed. VITAL SIGNS: Afebrile. Stable vital signs. EXTREMITIES: Right leg examination shows pain with internal and external rotation. Tenderness to palpation of the midshaft IMAGING STUDIES: Showed a subtrochanteric femur fracture. ASSESSMENT: Right subtrochanteric femur fracture. DISCUSSION: At this point, he is indicative of operative fixation. Risks, limitations, expectations, and complications of procedure were discussed in detailed with his All questions addressed. We are going to proceed with surgery tomorrow if he is medically optimized. Angel Leggett M.D. DR: Jeremiah JOB#: [id number] CC:
--- NOTE | 2019-02-14 19:30 | NUR ---
HAND-OFF: Report given to Britt RAMACHANDRAN. Patient is stable.
--- NOTE | 2019-02-14 19:35 | NUR ---
NURSE NOTES: Received a report from DUARTE Guallpa. Pt is asleep after came back from surgery, ORIF on right hip. No acute distress noted. Will continue to monitor.
--- NOTE | 2019-02-14 20:33 | General Progress Note ---
Assessment/Plan Problem List: (1) Dementia ICD Codes: F03.90 - Unspecified dementia without behavioral disturbance SNOMED: 72404640 (2) Fracture of right hip ICD Codes: S72.001A - Fracture of unspecified part of neck of right femur, initial encounter for closed fracture SNOMED: 777823904 (3) Femur fracture ICD Codes: S72.90XA - Unspecified fracture of unspecified femur, initial encounter for closed fracture SNOMED: 37836862 Qualifiers: Qualified Codes: S72.91XA - Unspecified fracture of right femur, initial encounter for closed fracture Status: progressing Assessment/Plan: s/p orif of him/femur needs placement agitated psych patient Subjective ROS Limited/Unobtainable: Yes Allergies: Coded Allergies: No Known Allergies (Unverified , 12/07/18) Objective Last 24 Hour Vital Signs Date Time Temp Pulse Resp B/P (MAP) Pulse Ox O2 Delivery O2 Flow Rate FiO2 02/14/19 18:58 97.2 91 16 122/75 (91) 100 02/14/19 18:48 97.7 91 18 120/68 100 Nasal Cannula 3 02/14/19 18:45 89 15 125/67 100 Nasal Cannula 3 02/14/19 18:44 97.8 02/14/19 18:30 91 17 125/68 100 Nasal Cannula 3 02/14/19 18:25 87 18 128/60 100 Nasal Cannula 3 02/14/19 18:15 94 20 123/74 100 Nasal Cannula 3 02/14/19 18:05 90 17 117/57 100 Nasal Cannula 3 02/14/19 18:00 93 18 132/84 100 Simple Mask 6 02/14/19 17:55 94 16 137/82 100 Simple Mask 6 02/14/19 17:55 97 14 100 02/14/19 17:50 97.8 105 14 135/86 100 Simple Mask 6 02/14/19 16:00 97.2 86 20 140/82 (101) 98 02/14/19 12:00 97.6 85 18 140/81 (100) 02/14/19 09:00 Room Air 02/14/19 08:34 88 137/76 02/14/19 08:00 98.1 87 20 137/76 (96) 100 02/14/19 04:00 97.8 86 16 157/89 (111) 98 02/14/19 00:00 98.8 80 20 138/84 (102) 99 02/13/19 21:00 Room Air Intake and Output 02/13/19 02/14/19 19:00 07:00 Intake Total 400 ml 450 ml Balance 400 ml 450 ml Intake Oral 400 ml 0 ml IV Total 450 ml # Voids 3 3 Height (Feet): 5 Height (Inches): 4.00 Weight (Pounds): 129 General Appearance: confused Cardiovascular: regular rhythm Respiratory/Chest: lungs clear Guido Prieto MD Feb 14, 2019 20:33
[2019-02-14] MEDS: D5 1/2NS w/KCl 20mEq 1,000 ML IV SCH (21:02)
[2019-02-14] MEDS: Docusate 100mg cap ORAL SCH (21:16)
[2019-02-14] MEDS: Tamsulosin 0.4mg cap ORAL SCH (21:16)
[2019-02-14] MEDS: HYDROcodone/Acetamin 7.5/325 tab ORAL PRN (21:17)
--- NOTE | 2019-02-14 21:20 | NUR ---
NURSE NOTES: Pt is awake with confusion on his baseline. Breathing is even and non labored. On O2 3L/min NC. No acute distress noted. Op site is wrapped with Dandre band. No bleeding sign noted. On applying ice pack. Pain noted on OP site so administer prn Brainard/Acet 7mg/325mg 1t po as ordered. Kevin catheter inserted stated and yellowish urine drained w/o hematuria nor sediments. Both L/E SCDs on. Both DPP intact. Skin is dry and warm to touch. Bowel sound intact q 4 quadrants. No BM noted. Leave call light within reach. Bed is locked with lowest position. Will continue to monitor.
[2019-02-14] MEDS ORDERED: ceFAZolin sod 2 GM in D5W 110 ML IV SCH (22:00)
[2019-02-14] MEDS: ceFAZolin sod 2 GM in D5W 110 ML IV SCH (23:57)
[2019-02-15] VITALS: BP 127/77
--- NOTE | 2019-02-15 00:15 | Operative Note - Dictated ---
DATE OF OPERATION: 02/14/2019 PREOP DIAGNOSIS: Right subtrochanteric femur fracture. POSTOP DIAGNOSIS: Right subtrochanteric femur fracture. PROCEDURE: Open reduction and internal fixation right subtrochanteric femur fracture. SURGEON: Angel Leggett M.D. ANESTHESIA: General. INDICATION FOR PROCEDURE: The patient is a pleasant gentleman, who sustained a fall, diagnosed with subtrochanteric femur fracture indicative of operative fixation. Risks, limitations, expectations, and complications of procedure were discussed in detail with his son Idris Paul, [place]. Risks, limitations, expectations complications of procedure were discussed in detail. All questions addressed. PROCEDURE: After informed consent was obtained, the patient was brought to the operating room, placed under general anesthesia. The patient then carefully had reduction of the right femur under fluoroscopic imaging. Right leg was prepped and draped in a sterile manner. Time-out was performed. Standard lateral skin incision was then made. Guidewire was placed in the proximal aspect of the . Proximal aspect of the was opened up in the proximal opening reamer. A long guidewire was then placed and the shaft was then reamed to accommodate a 10 mm nail. A 360 x 10 millimeter nail was selected. Through a second stab incision, a 85 mm cannulated screw was placed. Two distal locking screws were then placed distally. The target device was removed. The incisions were closed using #1 Vicryl suture, 2-0 Vicryl suture, 3-0 Monocryl sutures. Steri-Strips and a sterile dressing were applied. The patient was awoken and taken to recovery room with stable vital signs. ESTIMATED BLOOD LOSS: 50 mL. COMPLICATIONS: None. SPECIMENS: None. IMPLANTS: Include long Miracle gamma nail, 85 mm cannulated screw, and two distal locking screws. Angel Leggett M.D. DR: Jeremiah JOB#: [id number] CC:
--- NOTE | 2019-02-15 02:15 | Consultation ---
DATE OF CONSULTATION: 02/14/2019 CONSULTING PHYSICIAN: Liz Casey M.D. HISTORY OF PRESENT ILLNESS: This is an 79-year-old male with history of dementia, hypertension, GERD, who has been admitted to the hospital for hip pain . The patient is status post right hip surgery. The patient was agitated and combative 01:13 morphine, Ativan, and Benadryl to calm down. The patient is confused and disoriented. He is unable to provide any history. Does not answer any questions. PAST PSYCHIATRIC HISTORY: Dementia. He has been on psychiatric medications in the past. PAST MEDICAL HISTORY: GERD and hypertension. ALLERGIES: No known drug allergies. SUBSTANCE ABUSE HISTORY: No known history of illicit drug use or alcohol. MENTAL STATUS EXAMINATION: The patient is alert, confused, disoriented. Mood is agitated. Affect is constricted, congruent with mood. Thought process is concrete. Thought content, no suicidal or homicidal ideation. Memory, concentration impaired. ASSESSMENT: Rutledge I Question dementia with behavioral disturbance. Rutledge II Deferred. Rutledge III Right femoral diaphyseal fracture. Rutledge IV Low. Rutledge V 25. PLAN: 1. The patient will be started on Zyprexa p.r.n. 2. Haldol p.r.n. 3. We will continue to follow and adjust the medications. Liz Casey M.D. DR: MUSA JOB#: [id number] CC:
[2019-02-15] MEDS: Haloperidol 5mg/ml Inj IM PRN (02:42)
[2019-02-15 04:00] VITALS: BP 112/70
[2019-02-15] MEDS: D5 1/2NS w/KCl 20mEq 1,000 ML IV SCH ×2 (06:40→20:00)
--- NOTE | 2019-02-15 07:37 | NUR ---
HAND-OFF: Report given to DUARTE Curry.
[2019-02-15 08:00] VITALS: BP 140/81
--- NOTE | 2019-02-15 08:01 | 48 Hour Post Anesthesia Eval ---
Post Anesthesia Evaluation Procedure: ORIF Right Hip Date of Evaluation: Feb 15, 2019 Time of Evaluation: 08:01 Blood Pressure Systolic: 112 0: 70 Pulse Rate: 90 Respiratory Rate: 14 O2 Sat by Pulse Oximetry: 98 Airway: patent Nausea: No Vomiting: No Hydration Status: adequate Mental Status/LOC: patient returned to baseline Follow-up Care/Observations: na Post-Anesthesia Complications: none Follow-up care needed: N/A Lacey Wade CRNA Feb 15, 2019 08:01
--- NOTE | 2019-02-15 09:14 | NUR ---
P.T NOTE: P.T EVALUATION COMPLETED AND TX INITIATED. PLEASE REFER TO P.T EVALUATION FOR CURRENT FUNCTIONAL STATUS. PATIENT IS ALERT, O X 2 , CONFUSED HOWEVER FOLLOWS SIMPLE COMMANDS. PATIENT REPORTS C/O PAIN ( 8-10/10 PER VIDAL-BOONE SCALE), UNABLE TO RATE PAIN BUT AGREEABLE TO PARTICIPATE IN P.T EVALUATION. PATIENT CURRENTLY VERBAL CUES, EXTENDED TIME AND MOD/MAX A X 1 FOR BED MOBILITY, TRANSFERS AND GAIT/AMBULATION ACTIVITIES USING THE [facility]WW. SKILLED P.T SERVICE IS WARRANTED TO IMPROVE STRENGTH, BALANCE AND ACTIVITY TOLERANCE TO INCREASE MOBILITY INDEPENDENCE AND SAFETY. RECOMMEND RETURN TO PRIOR LIVING ARRANGEMENT ( RETURN TO SNF ) WITH CONTINUED SKILLED P.T. TO FURTHER INCREASE MOBILITY INDEPENDENCE.
[2019-02-15] MEDS: Docusate 100mg cap ORAL SCH ×3 (09:40→18:00)
[2019-02-15] MEDS: ceFAZolin sod 2 GM in D5W 110 ML IV SCH (09:45)
[2019-02-15] MEDS: celeBREX 200mg Cap **SURGERY PATIENTS ONLY ORAL SCH (09:45)
[2019-02-15] MEDS: Miralax 17gm pkt ORAL SCH (09:45)
--- NOTE | 2019-02-15 11:25 | NUR ---
*-* INSURANCE *-* ALL CLINICALS AND REVIEWS HAVE BEEN FAXED TO: [employer] [employer] P- [phone] [phone]....REVIEW/CLINICAL
--- NOTE | 2019-02-15 11:31 | Cardiac Electrophysiology PN ---
Assessment/Plan Assessment/Plan 1. Hypertension. On Amlodipine 5 mg daily. 2. Status post fall, resulting with right hip fracture. The patient denies any prior myocardial infarction or congestive heart failure. EKG is nonischemic. She is able to lie flat in the bed without any discomfort. Echocardiogram showed normal left ventricular systolic function with no significant valvular pathology. Tolerated right hip open reduction and internal fixation. 3. Benign prostatic hypertrophy on Proscar. 4. Dementia management per Dr. Casey. YOBANI RN Subjective Subjective Tolerated Right hip Fx yesterday Objective Last 24 Hour Vital Signs Date Time Temp Pulse Resp B/P (MAP) Pulse Ox O2 Delivery O2 Flow Rate FiO2 02/15/19 09:41 85 140/81 02/15/19 08:01 90 14 98 02/15/19 04:00 97.6 102 16 112/70 (84) 100 02/15/19 00:00 97.0 94 19 127/77 (94) 99 02/14/19 21:00 Nasal Cannula 3.0 02/14/19 20:00 98.6 101 20 125/73 (90) 98 02/14/19 18:58 97.2 91 16 122/75 (91) 100 02/14/19 18:48 97.7 91 18 120/68 100 Nasal Cannula 3 02/14/19 18:45 89 15 125/67 100 Nasal Cannula 3 02/14/19 18:44 97.8 02/14/19 18:30 91 17 125/68 100 Nasal Cannula 3 02/14/19 18:25 87 18 128/60 100 Nasal Cannula 3 02/14/19 18:15 94 20 123/74 100 Nasal Cannula 3 02/14/19 18:05 90 17 117/57 100 Nasal Cannula 3 02/14/19 18:00 93 18 132/84 100 Simple Mask 6 02/14/19 17:55 94 16 137/82 100 Simple Mask 6 02/14/19 17:55 97 14 100 02/14/19 17:50 97.8 105 14 135/86 100 Simple Mask 6 02/14/19 16:00 97.2 86 20 140/82 (101) 98 02/14/19 12:00 97.6 85 18 140/81 (100) Intake and Output 02/14/19 02/15/19 19:00 07:00 Intake Total 800 ml 690 ml Output Total 210 ml 500 ml Balance 590 ml 190 ml Intake Oral 240 ml IV Total 800 ml 450 ml Output Urine Total 200 ml 500 ml Estimated Blood Loss 10 ml # Voids 1 Microbiology Date/Time Source Procedure Growth Status 02/13/19 11:00 Nasal Nares Right MRSA Culture - Final NO METHICILLIN RESISTANT STAPH AUREUS... Complete 02/13/19 10:50 Rectum VRE Culture - Final NO VANCOMYCIN RESISTANT ENTEROCOCCUS ... Complete 02/13/19 10:50 Rectum - Final NO CARBAPENEM-RESISTANT ENTEROBACTERI... Complete Objective HEAD AND SHOWED: No JVD or carotid bruits. LUNGS: Clear. CARDIOVASCULAR: Regular S1 and S2 with no gallop or murmur. ABDOMEN: Soft. EXTREMITIES: No pitting edema. S/P ORIF right femur Niranjan Campbell MD Feb 15, 2019 11:31
[2019-02-15 12:00] VITALS: BP 140/80
--- NOTE | 2019-02-15 12:55 | NUR ---
CASE MANAGEMENT:REVIEW 02/15/19 SI: POD #1 S/P RT HIP ORIF W/SCREWS 97.7 85 18 140/80 98% ON RA IS: IVF@75/HR CELEBREX PO QD NORVASC PO QD PROSCAR PO QD FLOMAX PO QHS HALDOL IM Q6HRS PRN : MED/SURG STATUS 3 EAST
--- NOTE | 2019-02-15 14:17 | Diagnostic Imaging Report ---
Indication: Intraoperative imaging fracture Findings: 6 fluoroscopic portable views of the right femur were obtained. Fracture of the femoral shaft reduced by intramedullary justin and dynamic hip screw, distal locking screws noted on multiple images. IMPRESSION: Intraoperative imaging
--- NOTE | 2019-02-15 14:31 | General Progress Note ---
Assessment/Plan Assessment/Plan: (1) Right hip pain (2) Right hip Fx (3) S/p fall and ORIF (4) Dementia Patient to be continued on [place] 7.5/325mg We will discontinue the Morphine and [place] 5/325mg 2 tabs. D/w Dr. Tapia and he concurred. Subjective Date patient seen: Feb 15, 2019 Time patient seen: 02:15 - pm Allergies: Coded Allergies: No Known Allergies (Unverified , 12/07/18) Subjective REVIEW OF SYSTEMS: Complaining of right hip pain upon movement. Denies rash, fever, chills, sweating, dizziness, drowsiness, sore throat, blurred vision, or change in weight. No shortness of breath or chest pain. No nausea, vomiting, or blood in the stool or urine. No dysuria. SUBJECTIVE: Patient has been in bed and reports that the pain has been tolerated s/p ORIF. Started on norco 7.5/325mg PO 1 tab Q4H PRN. Objective Last 24 Hour Vital Signs Date Time Temp Pulse Resp B/P (MAP) Pulse Ox O2 Delivery O2 Flow Rate FiO2 02/15/19 12:00 97.7 85 18 140/80 (100) 02/15/19 09:41 85 140/81 02/15/19 09:00 Room Air 02/15/19 08:01 90 14 98 02/15/19 08:00 97.6 85 18 140/81 (100) 02/15/19 04:00 97.6 102 16 112/70 (84) 100 02/15/19 00:00 97.0 94 19 127/77 (94) 99 02/14/19 21:00 Nasal Cannula 3.0 02/14/19 20:00 98.6 101 20 125/73 (90) 98 02/14/19 18:58 97.2 91 16 122/75 (91) 100 02/14/19 18:48 97.7 91 18 120/68 100 Nasal Cannula 3 02/14/19 18:45 89 15 125/67 100 Nasal Cannula 3 02/14/19 18:44 97.8 02/14/19 18:30 91 17 125/68 100 Nasal Cannula 3 02/14/19 18:25 87 18 128/60 100 Nasal Cannula 3 02/14/19 18:15 94 20 123/74 100 Nasal Cannula 3 02/14/19 18:05 90 17 117/57 100 Nasal Cannula 3 02/14/19 18:00 93 18 132/84 100 Simple Mask 6 02/14/19 17:55 94 16 137/82 100 Simple Mask 6 02/14/19 17:55 97 14 100 02/14/19 17:50 97.8 105 14 135/86 100 Simple Mask 6 02/14/19 16:00 97.2 86 20 140/82 (101) 98 Intake and Output 02/14/19 02/15/19 19:00 07:00 Intake Total 800 ml 690 ml Output Total 210 ml 500 ml Balance 590 ml 190 ml Intake Oral 240 ml IV Total 800 ml 450 ml Output Urine Total 200 ml 500 ml Estimated Blood Loss 10 ml # Voids 1 Height (Feet): 5 Height (Inches): 4.00 Weight (Pounds): 129 Objective GENERAL: Alert and awake. LUNGS: Decreased breath sounds bilaterally. HEART: S1 and S2 regular. ABDOMEN: Soft and nontender. EXTREMITIES: No CCCE NEURO: No changes. Jacques Jimenez Feb 15, 2019 14:31
[2019-02-15] MEDS: HYDROcodone/Acetamin 7.5/325 tab ORAL PRN ×2 (14:46→21:03)
[2019-02-15 16:00] VITALS: BP 110/77
--- NOTE | 2019-02-15 19:55 | NUR ---
NURSE NOTES:Pt awake provided with paper as a distraction. Bx calm today. Did not have an episode of striking out. Feels sensation in feet able to move legs. All anticipated needs require to be met secondary to baseline
--- NOTE | 2019-02-15 19:58 | NUR ---
NURSE NOTES: Received patient in bed. Patient is alert and verbally responsive. Speaks only [place]ar[place]uan. Blue phone within reach. No acute distress noted at this time. Bed locked, lowest position, side rails up x 2, call light within reach. Will continue to monitor.
--- NOTE | 2019-02-15 19:59 | NUR ---
HAND-OFF: Report given to Juan RAMACHANDRAN.
[2019-02-15 20:00] VITALS: BP 105/55
[2019-02-15] MEDS: Tamsulosin 0.4mg cap ORAL SCH (20:57)
--- NOTE | 2019-02-15 21:14 | General Progress Note ---
Assessment/Plan Problem List: (1) Dementia ICD Codes: F03.90 - Unspecified dementia without behavioral disturbance SNOMED: 27769399 (2) Fracture of right hip ICD Codes: S72.001A - Fracture of unspecified part of neck of right femur, initial encounter for closed fracture SNOMED: 454395510 (3) Femur fracture ICD Codes: S72.90XA - Unspecified fracture of unspecified femur, initial encounter for closed fracture SNOMED: 17426402 Qualifiers: Qualified Codes: S72.91XA - Unspecified fracture of right femur, initial encounter for closed fracture Status: progressing Assessment/Plan: s/p orif of him/femur needs placement agitated reviewed chart and labs and meds Subjective Allergies: Coded Allergies: No Known Allergies (Unverified , 12/07/18) Subjective hip pain at surgical site Objective Last 24 Hour Vital Signs Date Time Temp Pulse Resp B/P (MAP) Pulse Ox O2 Delivery O2 Flow Rate FiO2 02/15/19 16:00 97.9 78 17 110/77 (88) 02/15/19 12:00 97.7 85 18 140/80 (100) 02/15/19 09:41 85 140/81 02/15/19 09:00 Room Air 02/15/19 08:01 90 14 98 02/15/19 08:00 97.6 85 18 140/81 (100) 02/15/19 04:00 97.6 102 16 112/70 (84) 100 02/15/19 00:00 97.0 94 19 127/77 (94) 99 Intake and Output 02/14/19 02/15/19 19:00 07:00 Intake Total 800 ml 690 ml Output Total 210 ml 500 ml Balance 590 ml 190 ml Intake Oral 240 ml IV Total 800 ml 450 ml Output Urine Total 200 ml 500 ml Estimated Blood Loss 10 ml # Voids 1 Height (Feet): 5 Height (Inches): 4.00 Weight (Pounds): 129 General Appearance: confused Cardiovascular: normal rate Respiratory/Chest: lungs clear Abdomen: soft Guido Prieto MD Feb 15, 2019 21:14
[2019-02-16] VITALS: BP 109/61
--- NOTE | 2019-02-16 | Progress Note ---
DATE: 02/15/2019 SUBJECTIVE: This is an 79-year-old male with a history of multiple medical problems including GERD, hypertension, and dementia who was admitted to the hospital due to pain and he had surgery yesterday. He is calmer, more directable. Has history of anxiety and agitation and he is currently on psychotropic medication. He is slightly confused. He knew his name. He knew he was in the hospital however still a poor historian. MENTAL STATUS EXAMINATION: Alert and oriented times 2 to 3. Mood is anxious. Affect is constricted, congruent with mood. Thought process concrete. Thought content, no suicidal or homicidal ideation. ASSESSMENT: Acute encephalopathy. PLAN: 1. We will continue current medications. 2. Provide the patient reality orientation and supportive therapy. Liz Casey M.D. DR: MUSA JOB#: [id number] CC:
[2019-02-16] MEDS: Haloperidol 5mg/ml Inj IM PRN ×3 (00:22→12:07)
--- NOTE | 2019-02-16 00:22 | NUR ---
NURSE NOTES: Patient confused and restless. Tried to get out of bed. Haldol PRN med given as ordered. Bed alarm zone 2 set up. Side rails up x 3. Will continue to monitor.
[2019-02-16 04:00] VITALS: BP 126/70
[2019-02-16] MEDS: OLANZapine 2.5mg tab ORAL PRN ×2 (05:58→12:07)
--- NOTE | 2019-02-16 06:42 | NUR ---
NURSE NOTES: Patient confused, agitated, and restless. Pulled out ISRRAEL bandage on R leg. Haldol 5mg PRN, Zyprexa 2.5mg PRN given as ordered. Will continue to monitor.
--- NOTE | 2019-02-16 07:28 | NUR ---
HAND-OFF: Report given to DUARTE Akbar.
--- NOTE | 2019-02-16 07:30 | NUR ---
NURSE NOTES: Patient lying in bed awake. No signs and symptoms of pain or distress at this time. Surgical dressing intact and dry. IV dressing intact and dry. Bed lowest position. Bed alarm on. Call light within reach. Will continue to monitor.
[2019-02-16 08:00] VITALS: BP 104/69
--- NOTE | 2019-02-16 08:38 | General Progress Note ---
Assessment/Plan Assessment/Plan: (1) Right hip pain (2) Right hip Fx (3) S/p fall and ORIF (4) Dementia Patient to be continued on [place] D/w Dr. Tapia and he concurred. Subjective Date patient seen: Feb 16, 2019 Time patient seen: 07:15 - am Allergies: Coded Allergies: No Known Allergies (Unverified , 12/07/18) Subjective REVIEW OF SYSTEMS: Complaining of right hip pain upon movement. Denies rash, fever, chills, sweating, dizziness, drowsiness, sore throat, blurred vision, or change in weight. No shortness of breath or chest pain. No nausea, vomiting, or blood in the stool or urine. No dysuria. SUBJECTIVE: Patient is in bed continues to have pain on movement. Reduced and tolerated on the [place] 2 doses in the last 24hrs. He has no new complaints at this time. Objective Last 24 Hour Vital Signs Date Time Temp Pulse Resp B/P (MAP) Pulse Ox O2 Delivery O2 Flow Rate FiO2 02/16/19 04:00 98.0 113 19 126/70 (88) 95 02/16/19 00:00 97.9 85 18 109/61 (77) 94 02/15/19 21:00 Room Air 02/15/19 20:00 98.1 88 19 105/55 (72) 94 02/15/19 16:00 97.9 78 17 110/77 (88) 02/15/19 12:00 97.7 85 18 140/80 (100) 02/15/19 09:41 85 140/81 02/15/19 09:00 Room Air Intake and Output 02/15/19 02/16/19 18:59 06:59 Intake Total 1260 ml 480 ml Balance 1260 ml 480 ml Intake Oral 960 ml 480 ml IV Total 300 ml # Voids 4 Height (Feet): 5 Height (Inches): 4.00 Weight (Pounds): 122 Objective GENERAL: Alert and awake. LUNGS: Decreased breath sounds bilaterally. HEART: S1 and S2 regular. ABDOMEN: Soft and nontender. EXTREMITIES: No CCCE NEURO: No changes. Jacques Jimenez Feb 16, 2019 08:38
--- NOTE | 2019-02-16 08:54 | NUR ---
NURSE NOTES: Spoke to regarding discharge and new order received. Order read back and carried out.
--- NOTE | 2019-02-16 09:23 | NUR ---
DISCHARGE PLANNING [employer] ARCHITECT DISCUSSED DISCHARGE WITH DR GARCIA PER DR GARCIA, [facility] WILL NOT ACCEPT [facility] PATIENT HAS BEEN REFERRED TO: [facility] T: [phone] WAITING FOR ACCEPTANCE AND ASSIGNED ROOM NUMBER
[2019-02-16] MEDS: Docusate 100mg cap ORAL SCH ×3 (09:32→17:44)
[2019-02-16] MEDS: celeBREX 200mg Cap **SURGERY PATIENTS ONLY ORAL SCH (09:32)
[2019-02-16] MEDS: Miralax 17gm pkt ORAL SCH (09:32)
--- NOTE | 2019-02-16 10:54 | NUR ---
*-* INSURANCE *-* ALL CLINICALS AND REVIEWS HAVE BEEN FAXED TO: [facility] P- [phone]....REVIEW/CLINICAL
[2019-02-16] MEDS ORDERED: CELEBREX200 MG ORAL (10:56)
[2019-02-16] MEDS ORDERED: COLACE100 MG ORAL (10:57)
[2019-02-16] MEDS ORDERED: CLONIDINE HCL0.1 MG PO (11:04)
[2019-02-16] MEDS ORDERED: MOM30 ML ORAL (11:10)
[2019-02-16] MEDS ORDERED: ZYPREXA2.5 MG ORAL (11:14)
[2019-02-16] MEDS ORDERED: RESTORIL7.5 MG ORAL (11:15)
--- NOTE | 2019-02-16 11:18 | NUR ---
Social Work This Sw received a consult to assist with a home safety evaluation. Patient is from [facility]. This Sw met with patient who is currently confused, showing agitation and requires Psych to follow for medication adjustments. This Sw spoke with son, Idris Paul ([phone]) who is the primary decision maker for patient. Son lives outside of [place], expressing the expectations with moving patient down there, when able to a facility closer to his home. This SW explained the process with the transfer, while recommending not to move the patient, due to behavioral and physical complications (son wanting to transport by his car). Son to follow with M.D for further recommendations as well. Son currently is requesting transfer to SNF in [place] that can meet patients behavioral and physical needs (will need further therapy). This Sw spoke with jose, Benji @ [facility] who explained they cannot accept patient back to [place], recommending [facility] (that has an opening); Benji explains he has informed Debbie, Case Management as well.
[2019-02-16 12:00] VITALS: BP 117/71
[2019-02-16] MEDS: Lactulose 20gm/30ml UDC ORAL SCH ×2 (12:07→17:44)
--- NOTE | 2019-02-16 13:43 | Cardiac Electrophysiology PN ---
Assessment/Plan Assessment/Plan 1. Hypertension. On Amlodipine 5 mg daily. 2. Status post fall, resulting with right hip fracture. The patient denies any prior myocardial infarction or congestive heart failure. EKG is nonischemic. Echo normal left ventricular systolic function with no significant valvular pathology. Tolerated right hip open reduction and internal fixation. 3. Benign prostatic hypertrophy on Proscar. 4. Dementia management per Dr. Casey. YOBANI RN Subjective Subjective No CP or SOB. Confused. Sitter at bedside. DC planning in progress Objective Last 24 Hour Vital Signs Date Time Temp Pulse Resp B/P (MAP) Pulse Ox O2 Delivery O2 Flow Rate FiO2 02/16/19 12:00 98.6 105 20 117/71 (86) 95 02/16/19 09:34 Room Air 02/16/19 09:00 101 104/69 02/16/19 08:00 97.7 101 20 104/69 (81) 97 02/16/19 04:00 98.0 113 19 126/70 (88) 95 02/16/19 00:00 97.9 85 18 109/61 (77) 94 02/15/19 21:00 Room Air 02/15/19 20:00 98.1 88 19 105/55 (72) 94 02/15/19 16:00 97.9 78 17 110/77 (88) Intake and Output 02/15/19 02/16/19 19:00 07:00 Intake Total 1185 ml 480 ml Balance 1185 ml 480 ml Intake Oral 960 ml 480 ml IV Total 225 ml # Voids 4 Objective HEAD AND SHOWED: No JVD LUNGS: Clear. CARDIOVASCULAR: Regular S1 and S2 with no gallop or murmur. ABDOMEN: Soft. EXTREMITIES: No pitting edema. S/P ORIF right femur Niranjan Campbell MD Feb 16, 2019 13:43
--- NOTE | 2019-02-16 14:57 | NUR ---
NURSE NOTES: Given medication for agitation but patient still agitated. Spoke to regarding patient and new order received. Order read back and carried out.
[2019-02-16] MEDS: LORazepam 1mg tab ORAL PRN (15:01)
--- NOTE | 2019-02-16 15:23 | NUR ---
DISCHARGE UPDATE [facility] WILL NOT ACCEPT PATIENT BACK [facility] ~T: [phone] ~ PER EVGENY THEY DO NOT HAVE A CONTRACT WITH [facility]:[phone] ~ PER JUAN CARLOS ~ UNABLE TO ACCEPT [facility]: [phone] ~PER DANYELLE ~ NO [facility]: [phone] ~PER JASMIN ~ NEVER RECEIVED...REFAXED [facility]: [phone] ~ PER SUSANNE ~ REQUESTED IT BE REFAXED
[2019-02-16 16:00] VITALS: BP 117/81
--- NOTE | 2019-02-16 18:30 | Consultation ---
DATE OF CONSULTATION: 02/16/2019 CHIEF COMPLAINT: Constipation. HISTORY OF PRESENT ILLNESS: The patient is a very pleasant 79-year-old patient, who had a fall with hip fracture requiring surgery in this admission. Since procedure, this patient has been having abdominal pain. No bowel movement for 3 days despite of Colace and MiraLAX. So, GI consult was requested for evaluation. PAST MEDICAL HISTORY: 1. Hypertension. 2. BPH. 3. Dementia. 4. Gastroesophageal reflux disease. PAST SURGICAL HISTORY: None. MEDICATIONS: Please see medication reconciliation sheet. ALLERGIES: No known drug allergies. SOCIAL HISTORY: Currently lives in a long term. No recent history of tobacco, alcohol, or drug abuse. REVIEW OF SYSTEMS: Unable to obtain or limited given the patient's current dementia. PHYSICAL EXAMINATION: VITAL SIGNS: Temperature is 97.7, pulse is 101, respirations 20, and blood pressure is 104/69. HEENT: Normocephalic and atraumatic. Sclerae anicteric. NECK: Supple. No evidence of obvious lymphadenopathy. CARDIOVASCULAR: Tachycardic. Regular rate. Plus S1 and S2. No obvious murmur. LUNGS: Clear to auscultation bilaterally. ABDOMEN: Positive bowel sounds. Soft and nontender. No rebound. No guarding. No peritoneal sign. EXTREMITIES: No cyanosis. No clubbing. No edema. LABORATORY DATA: From the time of admission, white count is 12, hemoglobin 13, hematocrit 39, and platelet count is 309,000. ASSESSMENT AND PLAN: This is an 79-year-old male with severe constipation post hip surgery. This is most probably related to pain medication. Plan to continue on Colace and MiraLAX. Add lactulose. Add one dose of Dulcolax suppository. We will repeat labs for tomorrow. We will monitor the patient closely and make further recommendation as needed. If the above laxative is not working, we are going to add more laxative tomorrow possibly intravenous magnesium tomorrow. I want to thank Dr. Guido Prieto for this kind referral. Yung Delarosa M.D. DR: STEFANY JOB#: [id number] CC: Guido Prieto M.D.; Fax#: [phone]
--- NOTE | 2019-02-16 19:30 | NUR ---
HAND-OFF: Report given to Juan RAMACHANDRAN and Bettie RAMACHANDRAN. Patient in stable condition.
--- NOTE | 2019-02-16 19:39 | NUR ---
NURSE NOTES: Patient sleeping in bed, on room air. No signs and symptoms of acute distress at this time. Surgical dressing intact and dry. IV dressing intact and dry. Blue phone within reach. Bed locked, lowest position, alarm on. Call light within reach. Will continue to monitor.
[2019-02-16 20:00] VITALS: BP 109/78
--- NOTE | 2019-02-16 20:54 | General Progress Note ---
Assessment/Plan Problem List: (1) Dementia ICD Codes: F03.90 - Unspecified dementia without behavioral disturbance SNOMED: 32692539 (2) Fracture of right hip ICD Codes: S72.001A - Fracture of unspecified part of neck of right femur, initial encounter for closed fracture SNOMED: 883613268 (3) Femur fracture ICD Codes: S72.90XA - Unspecified fracture of unspecified femur, initial encounter for closed fracture SNOMED: 53145612 Qualifiers: Qualified Codes: S72.91XA - Unspecified fracture of right femur, initial encounter for closed fracture Status: progressing Assessment/Plan: s/p orif of him/femur needs placement at times is agitated afebrile Subjective ROS Limited/Unobtainable: Yes Allergies: Coded Allergies: No Known Allergies (Unverified , 12/07/18) Subjective hip pain at surgical site Objective Last 24 Hour Vital Signs Date Time Temp Pulse Resp B/P (MAP) Pulse Ox O2 Delivery O2 Flow Rate FiO2 02/16/19 20:00 98.0 98 18 109/78 (88) 99 02/16/19 16:00 97.7 105 19 117/81 (93) 97 02/16/19 12:00 98.6 105 20 117/71 (86) 95 02/16/19 09:34 Room Air 02/16/19 09:00 101 104/69 02/16/19 08:00 97.7 101 20 104/69 (81) 97 02/16/19 04:00 98.0 113 19 126/70 (88) 95 02/16/19 00:00 97.9 85 18 109/61 (77) 94 02/15/19 21:00 Room Air Intake and Output 02/15/19 02/16/19 19:00 07:00 Intake Total 1185 ml 480 ml Balance 1185 ml 480 ml Intake Oral 960 ml 480 ml IV Total 225 ml # Voids 4 Height (Feet): 5 Height (Inches): 4.00 Weight (Pounds): 122 General Appearance: confused Cardiovascular: normal rate Respiratory/Chest: lungs clear Guido Prieto MD Feb 16, 2019 20:54
[2019-02-16] MEDS: Tamsulosin 0.4mg cap ORAL SCH (21:11)
[2019-02-17 04:00] VITALS: BP 158/91
[2019-02-17] MEDS: LORazepam 1mg tab ORAL PRN ×2 (06:16→21:28)
[2019-02-17] MEDS: HYDROcodone/Acetamin 7.5/325 tab ORAL PRN (06:29)
--- NOTE | 2019-02-17 07:13 | NUR ---
HAND-OFF: Report given to Cristian Lakhani RN.
--- NOTE | 2019-02-17 07:30 | NUR ---
NURSE NOTES: Patient lying in bed sleeping. No signs and symptoms of pain or distress at this time. Surgical dressing intact and dry. IV dressing intact and dry. Bed lowest position and Bed alarm on. Call light within reach. Will continue to monitor.
[2019-02-17 07:43] LABS: HEMATOCRIT 33.3 % (42.0-52.0); MEAN CORPUSCULAR VOLUME 90 FL (80-99); PLATELET COUNT 310 K/UL (150-450); RED BLOOD COUNT 3.68 M/UL (4.70-6.10); RED CELL DISTRIBUTION WIDTH 12.8 % (11.6-14.8); WHITE BLOOD COUNT 14.4 K/UL (4.8-10.8)
[2019-02-17 08:00] VITALS: BP 119/71
[2019-02-17 08:05] LABS: ANION GAP 14 mmol/L (5-15); BLOOD UREA NITROGEN 21 mg/dL (7-18); CALCIUM 8.8 MG/DL (8.5-10.1); CARBON DIOXIDE 21 MMOL/L (21-32); CHLORIDE 104 MMOL/L (98-107); CREATININE 1.1 MG/DL (0.55-1.30); PHOSPHORUS 3.1 MG/DL (2.5-4.9); POTASSIUM 4.3 MMOL/L (3.5-5.1); SODIUM 139 MMOL/L (136-145)
--- NOTE | 2019-02-17 08:17 | General Progress Note ---
Assessment/Plan Problem List: (1) Constipation ICD Codes: K59.00 - Constipation, unspecified SNOMED: 94993214 (2) Femur fracture ICD Codes: S72.90XA - Unspecified fracture of unspecified femur, initial encounter for closed fracture SNOMED: 99961142 Qualifiers: Qualified Codes: S72.91XA - Unspecified fracture of right femur, initial encounter for closed fracture (3) Fracture of right hip ICD Codes: S72.001A - Fracture of unspecified part of neck of right femur, initial encounter for closed fracture SNOMED: 651080282 (4) Dementia ICD Codes: F03.90 - Unspecified dementia without behavioral disturbance SNOMED: 84648082 Status: progressing Assessment/Plan: had BM bowel regimen fu labs post op care Subjective ROS Limited/Unobtainable: Yes Allergies: Coded Allergies: No Known Allergies (Unverified , 12/07/18) Objective Last 24 Hour Vital Signs Date Time Temp Pulse Resp B/P (MAP) Pulse Ox O2 Delivery O2 Flow Rate FiO2 02/17/19 04:00 97.8 117 20 158/91 (113) 97 02/16/19 21:00 Room Air 02/16/19 20:00 98.0 98 18 109/78 (88) 99 02/16/19 16:00 97.7 105 19 117/81 (93) 97 02/16/19 12:00 98.6 105 20 117/71 (86) 95 02/16/19 09:34 Room Air 02/16/19 09:00 101 104/69 Intake and Output 02/16/19 02/17/19 18:59 06:59 Intake Total 360 ml Balance 360 ml Intake Oral 360 ml # Bowel Movements 2 Laboratory Tests 02/17/19 06:49: White Blood Count 14.4H, Red Blood Count 3.68L, Hemoglobin 11.0L, Hematocrit 33.3L, Mean Corpuscular Volume 90, Mean Corpuscular Hemoglobin 29.9, Mean Corpuscular Hemoglobin Concent 33.1, Red Cell Distribution Width 12.8, Platelet Count 310, Mean Platelet Volume 6.3L, Neutrophils (%) (Auto) , Lymphocytes (%) ( Auto) , Monocytes (%) (Auto) , Eosinophils (%) (Auto) , Basophils (%) (Auto) , Neutrophils % (Manual) [Pending], Lymphocytes % (Manual) [Pending], Platelet Estimate [Pending], Platelet Morphology [Pending], Sodium Level 139, Potassium Level 4.3, Chloride Level 104, Carbon Dioxide Level 21, Anion Gap 14, Blood Urea Nitrogen 21H, Creatinine 1.1, Estimat Glomerular Filtration Rate , Glucose Level 108H, Calcium Level 8.8, Phosphorus Level 3.1 Height (Feet): 5 Height (Inches): 4.00 Weight (Pounds): 122 General Appearance: alert EENT: normal ENT inspection Neck: supple Cardiovascular: normal rate Respiratory/Chest: decreased breath sounds Abdomen: normal bowel sounds, non tender, soft Extremities: non-tender Yung Delarosa MD Feb 17, 2019 08:17
--- NOTE | 2019-02-17 08:20 | NUR ---
NURSE NOTES: Spoke to regarding Lactulose and new order received. Order read back and carried out.
--- NOTE | 2019-02-17 09:00 | General Progress Note ---
Assessment/Plan Status: progressing Assessment/Plan: (1) Right hip pain (2) Right hip Fx (3) S/p fall and ORIF (4) Dementia Patient to be continued on [place] D/w Dr. Tapia and he concurred. Subjective Date patient seen: Feb 17, 2019 Time patient seen: 08:30 - am Allergies: Coded Allergies: No Known Allergies (Unverified , 12/07/18) Subjective REVIEW OF SYSTEMS: Complaining of right hip pain upon movement. Denies rash, fever, chills, sweating, dizziness, drowsiness, sore throat, blurred vision, or change in weight. No shortness of breath or chest pain. No nausea, vomiting, or blood in the stool or urine. No dysuria. SUBJECTIVE: Patient in bed and is comfortable he has no signs of pain or distress. Has gotten on dose of [place] in the last 24hrs. Doing PT at the best of his abilities. Objective Last 24 Hour Vital Signs Date Time Temp Pulse Resp B/P (MAP) Pulse Ox O2 Delivery O2 Flow Rate FiO2 02/17/19 04:00 97.8 117 20 158/91 (113) 97 02/16/19 21:00 Room Air 02/16/19 20:00 98.0 98 18 109/78 (88) 99 02/16/19 16:00 97.7 105 19 117/81 (93) 97 02/16/19 12:00 98.6 105 20 117/71 (86) 95 02/16/19 09:34 Room Air 02/16/19 09:00 101 104/69 Intake and Output 02/16/19 02/17/19 18:59 06:59 Intake Total 360 ml Balance 360 ml Intake Oral 360 ml # Bowel Movements 2 Laboratory Tests 02/17/19 06:49: White Blood Count 14.4H, Red Blood Count 3.68L, Hemoglobin 11.0L, Hematocrit 33.3L, Mean Corpuscular Volume 90, Mean Corpuscular Hemoglobin 29.9, Mean Corpuscular Hemoglobin Concent 33.1, Red Cell Distribution Width 12.8, Platelet Count 310, Mean Platelet Volume 6.3L, Neutrophils (%) (Auto) , Lymphocytes (%) ( Auto) , Monocytes (%) (Auto) , Eosinophils (%) (Auto) , Basophils (%) (Auto) , Differential Total Cells Counted 100, Neutrophils % (Manual) 86H, Lymphocytes % (Manual) 8L, Monocytes % (Manual) 6, Eosinophils % (Manual) 0, Basophils % ( Manual) 0, Band Neutrophils 0, Platelet Estimate Adequate, Platelet Morphology Normal, Sodium Level 139, Potassium Level 4.3, Chloride Level 104, Carbon Dioxide Level 21, Anion Gap 14, Blood Urea Nitrogen 21H, Creatinine 1.1, Estimat Glomerular Filtration Rate , Glucose Level 108H, Calcium Level 8.8, Phosphorus Level 3.1 Height (Feet): 5 Height (Inches): 4.00 Weight (Pounds): 122 Objective GENERAL: Alert and awake. LUNGS: Decreased breath sounds bilaterally. HEART: S1 and S2 regular. ABDOMEN: Soft and nontender. EXTREMITIES: No CCCE NEURO: No changes. Jacques Jimenez Feb 17, 2019 09:00
[2019-02-17] MEDS: Docusate 100mg cap ORAL SCH ×3 (09:25→17:33)
[2019-02-17] MEDS: Lactulose 20gm/30ml UDC ORAL SCH (09:25)
[2019-02-17] MEDS: celeBREX 200mg Cap **SURGERY PATIENTS ONLY ORAL SCH (09:25)
[2019-02-17] MEDS: Miralax 17gm pkt ORAL SCH (09:25)
--- NOTE | 2019-02-17 10:11 | NUR ---
DISCHARGE UPDATE [facility] WILL NOT ACCEPT PATIENT BACK [facility]: [phone] ~BEING REVIEWED BY RICARDO FOR ACCEPTANCE [facility]: [phone] ~ ROCIO OMER [phone] IS WORKING ON AUTH FROM [facility] Addendum: 02/17/19 at 1051 by Criselda Barry CM PREETHI CALVIN ORDER TO VITALIY CHOE TO OPEN CASE F: [phone]
--- NOTE | 2019-02-17 10:35 | Cardiac Electrophysiology PN ---
Assessment/Plan Assessment/Plan 1. Hypertension. On Amlodipine 5 mg daily. 2. Status post fall, resulting with right hip fracture. No prior myocardial infarction or congestive heart failure. EKG is nonischemic. Echo normal EF. Tolerated right hip ORIF 3. Benign prostatic hypertrophy on Proscar. 4. Dementia management per Dr. Casey. YOBANI RN Subjective Subjective No CP or SOB. Confused. No events Objective Last 24 Hour Vital Signs Date Time Temp Pulse Resp B/P (MAP) Pulse Ox O2 Delivery O2 Flow Rate FiO2 02/17/19 09:26 96 119/71 02/17/19 09:00 Room Air 02/17/19 08:00 97.3 96 20 119/71 (87) 99 02/17/19 04:00 97.8 117 20 158/91 (113) 97 02/16/19 21:00 Room Air 02/16/19 20:00 98.0 98 18 109/78 (88) 99 02/16/19 16:00 97.7 105 19 117/81 (93) 97 02/16/19 12:00 98.6 105 20 117/71 (86) 95 Intake and Output 02/16/19 02/17/19 18:59 06:59 Intake Total 360 ml Balance 360 ml Intake Oral 360 ml # Bowel Movements 2 Laboratory Tests Test 02/17/19 06:49 White Blood Count 14.4 K/UL (4.8-10.8) H Red Blood Count 3.68 M/UL (4.70-6.10) L Hemoglobin 11.0 G/DL (14.2-18.0) L Hematocrit 33.3 % (42.0-52.0) L Mean Corpuscular Volume 90 FL (80-99) Mean Corpuscular Hemoglobin 29.9 PG (27.0-31.0) Mean Corpuscular Hemoglobin Concent 33.1 G/DL (32.0-36.0) Red Cell Distribution Width 12.8 % (11.6-14.8) Platelet Count 310 K/UL (150-450) Mean Platelet Volume 6.3 FL (6.5-10.1) L Neutrophils (%) (Auto) % (45.0-75.0) Lymphocytes (%) (Auto) % (20.0-45.0) Monocytes (%) (Auto) % (1.0-10.0) Eosinophils (%) (Auto) % (0.0-3.0) Basophils (%) (Auto) % (0.0-2.0) Differential Total Cells Counted 100 Neutrophils % (Manual) 86 % (45-75) H Lymphocytes % (Manual) 8 % (20-45) L Monocytes % (Manual) 6 % (1-10) Eosinophils % (Manual) 0 % (0-3) Basophils % (Manual) 0 % (0-2) Band Neutrophils 0 % (0-8) Platelet Estimate Adequate Platelet Morphology Normal Sodium Level 139 MMOL/L (136-145) Potassium Level 4.3 MMOL/L (3.5-5.1) Chloride Level 104 MMOL/L (98-107) Carbon Dioxide Level 21 MMOL/L (21-32) Anion Gap 14 mmol/L (5-15) Blood Urea Nitrogen 21 mg/dL (7-18) H Creatinine 1.1 MG/DL (0.55-1.30) Estimat Glomerular Filtration Rate mL/min (>60) Glucose Level 108 MG/DL (74-106) H Calcium Level 8.8 MG/DL (8.5-10.1) Phosphorus Level 3.1 MG/DL (2.5-4.9) Objective HEAD AND SHOWED: No JVD LUNGS: Clear. CARDIOVASCULAR: Regular S1 and S2 with no gallop or murmur. ABDOMEN: Soft. EXTREMITIES: No pitting edema. S/P ORIF right femur Niranjan Campbell MD Feb 17, 2019 10:35
[2019-02-17 11:46] VITALS: BP 147/82
--- NOTE | 2019-02-17 11:52 | NUR ---
*-* INSURANCE *-* UPDATED CLINICALS HAVE BEEN FAXED TO: [facility] P- [phone] F- [phone]....REVIEW/CLINICAL
--- NOTE | 2019-02-17 12:32 | NUR ---
DISCHARGE PLANNING: NOTE CLINICALS FAXED TO [facility] T: [phone]/F:[phone] LEFT FOR MICHAEL @ [facility] [phone]
[2019-02-17 15:46] VITALS: BP 137/88
--- NOTE | 2019-02-17 19:00 | Progress Note ---
DATE: 02/17/2019 SUBJECTIVE: The patient is more manageable and calmer. He is able to answer questions more appropriately. MENTAL STATUS EXAMINATION: The patient is alert and oriented times to self and place. Mood is anxious. Affect is constricted with congruent mood. Thought process is concrete. Thought content, no suicidal or homicidal ideation. ASSESSMENT: Stable. PLAN: The patient will be continued on current medication. Provide the patient with reality orientation and supportive therapy. Liz Casey M.D. DR: CHARLENE JOB#: [id number] CC:
--- NOTE | 2019-02-17 19:08 | General Progress Note ---
Assessment/Plan Problem List: (1) Dementia ICD Codes: F03.90 - Unspecified dementia without behavioral disturbance SNOMED: 34563324 (2) Fracture of right hip ICD Codes: S72.001A - Fracture of unspecified part of neck of right femur, initial encounter for closed fracture SNOMED: 581990623 (3) Femur fracture ICD Codes: S72.90XA - Unspecified fracture of unspecified femur, initial encounter for closed fracture SNOMED: 67207419 Qualifiers: Qualified Codes: S72.91XA - Unspecified fracture of right femur, initial encounter for closed fracture Status: progressing Assessment/Plan: s/o orif of hip needs placement afebrile vitlas stable Subjective ROS Limited/Unobtainable: Yes Allergies: Coded Allergies: No Known Allergies (Unverified , 12/07/18) Subjective hip pain at surgical site Objective Last 24 Hour Vital Signs Date Time Temp Pulse Resp B/P (MAP) Pulse Ox O2 Delivery O2 Flow Rate FiO2 02/17/19 15:46 98.3 96 18 137/88 (104) 96 02/17/19 11:46 98.0 19 147/82 (103) 97 02/17/19 09:26 96 119/71 02/17/19 09:00 Room Air 02/17/19 08:00 97.3 96 20 119/71 (87) 99 02/17/19 04:00 97.8 117 20 158/91 (113) 97 02/16/19 21:00 Room Air 02/16/19 20:00 98.0 98 18 109/78 (88) 99 Intake and Output 02/16/19 02/17/19 19:00 07:00 Intake Total 360 ml Balance 360 ml Intake Oral 360 ml # Bowel Movements 2 Laboratory Tests 02/17/19 06:49: White Blood Count 14.4H, Red Blood Count 3.68L, Hemoglobin 11.0L, Hematocrit 33.3L, Mean Corpuscular Volume 90, Mean Corpuscular Hemoglobin 29.9, Mean Corpuscular Hemoglobin Concent 33.1, Red Cell Distribution Width 12.8, Platelet Count 310, Mean Platelet Volume 6.3L, Neutrophils (%) (Auto) , Lymphocytes (%) ( Auto) , Monocytes (%) (Auto) , Eosinophils (%) (Auto) , Basophils (%) (Auto) , Differential Total Cells Counted 100, Neutrophils % (Manual) 86H, Lymphocytes % (Manual) 8L, Monocytes % (Manual) 6, Eosinophils % (Manual) 0, Basophils % ( Manual) 0, Band Neutrophils 0, Platelet Estimate Adequate, Platelet Morphology Normal, Sodium Level 139, Potassium Level 4.3, Chloride Level 104, Carbon Dioxide Level 21, Anion Gap 14, Blood Urea Nitrogen 21H, Creatinine 1.1, Estimat Glomerular Filtration Rate , Glucose Level 108H, Calcium Level 8.8, Phosphorus Level 3.1 Height (Feet): 5 Height (Inches): 4.00 Weight (Pounds): 122 Cardiovascular: normal rate Respiratory/Chest: lungs clear Guido Prieto MD Feb 17, 2019 19:08
--- NOTE | 2019-02-17 19:30 | NUR ---
HAND-OFF: Report given to Troy RAMACHANDRAN. Patient in stable condition.
[2019-02-17 20:00] VITALS: BP 133/92
[2019-02-17] MEDS: Tamsulosin 0.4mg cap ORAL SCH (21:28)
--- NOTE | 2019-02-17 23:15 | Progress Note ---
DATE: 02/16/2019 Late entry. SUBJECTIVE: The patient presents with anxiety. The patient was agitated, confused, disoriented, and not able to be engaged during the evaluation. Poor insight and judgment. MENTAL STATUS EXAMINATION: The patient is alert, was more confused today. Mood is agitated. Affect is flat. Thought process, there is a paucity of thought content. Thought content, no suicidal or homicidal ideations. Cognition is impaired. ASSESSMENT: 1. Encephalopathy. 2. Dementia with behavioral disturbance. PLAN: 1. We will continue current medication. 2. Increase the Ativan. Liz Casey M.D. DR: NAVYA JOB#: [id number] CC:
[2019-02-18] VITALS: BP 131/79
[2019-02-18 04:00] VITALS: BP 134/81
[2019-02-18 06:39] LABS: EOSINOPHILS % (AUTO) 5.3 % (0.0-3.0); HEMATOCRIT 29.3 % (42.0-52.0); HEMOGLOBIN 9.7 G/DL (14.2-18.0); LYMPHOCYTES % (AUTO) 11.8 % (20.0-45.0); MEAN CORPUSCULAR VOLUME 90 FL (80-99); MONOCYTES % (AUTO) 9.9 % (1.0-10.0); PLATELET COUNT 321 K/UL (150-450); RED BLOOD COUNT 3.25 M/UL (4.70-6.10); RED CELL DISTRIBUTION WIDTH 12.8 % (11.6-14.8); WHITE BLOOD COUNT 7.4 K/UL (4.8-10.8)
--- NOTE | 2019-02-18 07:34 | NUR ---
NURSE NOTES: Patient is in bed asleep. STable. No facial grimacing or signs of discomfort noted. Patient is in bed in locked and lowest position with bed alarm in place. All safety measures provided. Will continue to monitor.
[2019-02-18 08:00] VITALS: BP 128/76
[2019-02-18] MEDS: Lactulose 20gm/30ml UDC ORAL SCH (08:43)
[2019-02-18] MEDS: Docusate 100mg cap ORAL SCH ×3 (08:43→18:09)
[2019-02-18] MEDS: Miralax 17gm pkt ORAL SCH (08:43)
[2019-02-18] MEDS: LORazepam 1mg tab ORAL PRN (08:44)
[2019-02-18] MEDS: celeBREX 200mg Cap **SURGERY PATIENTS ONLY ORAL SCH (08:44)
--- NOTE | 2019-02-18 09:08 | General Progress Note ---
Assessment/Plan Problem List: (1) Constipation ICD Codes: K59.00 - Constipation, unspecified SNOMED: 88597000 (2) Femur fracture ICD Codes: S72.90XA - Unspecified fracture of unspecified femur, initial encounter for closed fracture SNOMED: 72454942 Qualifiers: Qualified Codes: S72.91XA - Unspecified fracture of right femur, initial encounter for closed fracture (3) Fracture of right hip ICD Codes: S72.001A - Fracture of unspecified part of neck of right femur, initial encounter for closed fracture SNOMED: 838009230 (4) Dementia ICD Codes: F03.90 - Unspecified dementia without behavioral disturbance SNOMED: 79521706 Status: progressing Assessment/Plan: had BM bowel regimen fu labs post op care Subjective ROS Limited/Unobtainable: Yes Allergies: Coded Allergies: No Known Allergies (Unverified , 12/07/18) Objective Last 24 Hour Vital Signs Date Time Temp Pulse Resp B/P (MAP) Pulse Ox O2 Delivery O2 Flow Rate FiO2 02/18/19 08:44 82 128/76 02/18/19 04:00 97.8 18 134/81 (98) 99 02/18/19 00:00 98.0 19 131/79 (96) 98 02/17/19 21:00 Room Air 02/17/19 20:00 97.2 101 18 133/92 (106) 100 02/17/19 15:46 98.3 96 18 137/88 (104) 96 02/17/19 11:46 98.0 19 147/82 (103) 97 02/17/19 09:26 96 119/71 Intake and Output 02/17/19 02/18/19 19:00 07:00 Intake Total 400 ml Balance 400 ml Intake Oral 400 ml # Voids 3 Laboratory Tests 02/18/19 05:45: White Blood Count 7.4, Red Blood Count 3.25L, Hemoglobin 9.7L, Hematocrit 29.3L , Mean Corpuscular Volume 90, Mean Corpuscular Hemoglobin 29.7, Mean Corpuscular Hemoglobin Concent 33.0, Red Cell Distribution Width 12.8, Platelet Count 321, Mean Platelet Volume 5.7L, Neutrophils (%) (Auto) 72.0, Lymphocytes ( %) (Auto) 11.8L, Monocytes (%) (Auto) 9.9, Eosinophils (%) (Auto) 5.3H, Basophils (%) (Auto) 1.0 Height (Feet): 5 Height (Inches): 4.00 Weight (Pounds): 122 General Appearance: alert EENT: normal ENT inspection Neck: supple Cardiovascular: normal rate Respiratory/Chest: decreased breath sounds Abdomen: normal bowel sounds, non tender, soft Extremities: non-tender Yung Delarosa MD Feb 18, 2019 09:08
[2019-02-18] MEDS ORDERED: 1/2 NS 1000ml IV ONE (09:26)
[2019-02-18] MEDS ORDERED: Tubing IV Secondary IV ONE (09:26)
--- NOTE | 2019-02-18 10:46 | NUR ---
P.T NOTE: P.T ATTEMPTED HOWEVER UNSUCCESSFUL DUE TO PATIENT TOO LETHARGIC TO PARTICIPATE. ATIVAN HAS TAKEN EFFECT.
[2019-02-18 12:00] VITALS: BP 117/66
--- NOTE | 2019-02-18 12:37 | Cardiology Report ---
APPROVED REPORT EKG Measurement Heart [id number] OK 212P72 [id number] Sinus rhythm with 1st degree AV block Otherwise normal ECG
--- NOTE | 2019-02-18 13:46 | Cardiac Electrophysiology PN ---
Assessment/Plan Assessment/Plan 1. Hypertension. On Amlodipine 5 mg daily. 2. Status post R hip ORIF for fall, resulting with right hip fracture. No prior myocardial infarction or congestive heart failure. EKG is nonischemic. Echo normal EF. 3. Benign prostatic hypertrophy on Proscar. 4. Dementia management per Dr. Casey. YOBANI RN Subjective Subjective No events.Comfortable Objective Last 24 Hour Vital Signs Date Time Temp Pulse Resp B/P (MAP) Pulse Ox O2 Delivery O2 Flow Rate FiO2 02/18/19 09:00 Room Air 02/18/19 08:44 82 128/76 02/18/19 08:00 97.5 82 18 128/76 (93) 98 02/18/19 04:00 97.8 18 134/81 (98) 99 02/18/19 00:00 98.0 19 131/79 (96) 98 02/17/19 21:00 Room Air 02/17/19 20:00 97.2 101 18 133/92 (106) 100 02/17/19 15:46 98.3 96 18 137/88 (104) 96 Intake and Output 02/17/19 02/18/19 18:59 06:59 Intake Total 400 ml Balance 400 ml Intake Oral 400 ml # Voids 3 Laboratory Tests Test 02/18/19 05:45 White Blood Count 7.4 K/UL (4.8-10.8) Red Blood Count 3.25 M/UL (4.70-6.10) L Hemoglobin 9.7 G/DL (14.2-18.0) L Hematocrit 29.3 % (42.0-52.0) L Mean Corpuscular Volume 90 FL (80-99) Mean Corpuscular Hemoglobin 29.7 PG (27.0-31.0) Mean Corpuscular Hemoglobin Concent 33.0 G/DL (32.0-36.0) Red Cell Distribution Width 12.8 % (11.6-14.8) Platelet Count 321 K/UL (150-450) Mean Platelet Volume 5.7 FL (6.5-10.1) L Neutrophils (%) (Auto) 72.0 % (45.0-75.0) Lymphocytes (%) (Auto) 11.8 % (20.0-45.0) L Monocytes (%) (Auto) 9.9 % (1.0-10.0) Eosinophils (%) (Auto) 5.3 % (0.0-3.0) H Basophils (%) (Auto) 1.0 % (0.0-2.0) Objective HEAD AND SHOWED: No JVD LUNGS: Clear. CARDIOVASCULAR: Regular S1 and S2 with no gallop or murmur. ABDOMEN: Soft. EXTREMITIES: No pitting edema. S/P ORIF right femur Niranjan Campbell MD Feb 18, 2019 13:46
--- NOTE | 2019-02-18 14:18 | General Progress Note ---
Assessment/Plan Status: progressing Assessment/Plan: (1) Right hip pain (2) Right hip Fx (3) S/p fall and ORIF (4) Dementia Patient to be continued on [place] D/w Dr. Tapia and he concurred. Subjective Date patient seen: Feb 18, 2019 Time patient seen: 02:15 - pm Allergies: Coded Allergies: No Known Allergies (Unverified , 12/07/18) Subjective REVIEW OF SYSTEMS: Complaining of right hip pain upon movement. Denies rash, fever, chills, sweating, dizziness, drowsiness, sore throat, blurred vision, or change in weight. No shortness of breath or chest pain. No nausea, vomiting, or blood in the stool or urine. No dysuria. SUBJECTIVE: Patient is in bed laying down reports pain which is at a mild level using one dose of norco in the last 24hrs. No new complaints at this time. Objective Last 24 Hour Vital Signs Date Time Temp Pulse Resp B/P (MAP) Pulse Ox O2 Delivery O2 Flow Rate FiO2 02/18/19 12:00 97.9 86 20 117/66 (83) 97 02/18/19 09:00 Room Air 02/18/19 08:44 82 128/76 02/18/19 08:00 97.5 82 18 128/76 (93) 98 02/18/19 04:00 97.8 18 134/81 (98) 99 02/18/19 00:00 98.0 19 131/79 (96) 98 02/17/19 21:00 Room Air 02/17/19 20:00 97.2 101 18 133/92 (106) 100 02/17/19 15:46 98.3 96 18 137/88 (104) 96 Intake and Output 02/17/19 02/18/19 18:59 06:59 Intake Total 400 ml Balance 400 ml Intake Oral 400 ml # Voids 3 Laboratory Tests 02/18/19 05:45: White Blood Count 7.4, Red Blood Count 3.25L, Hemoglobin 9.7L, Hematocrit 29.3L , Mean Corpuscular Volume 90, Mean Corpuscular Hemoglobin 29.7, Mean Corpuscular Hemoglobin Concent 33.0, Red Cell Distribution Width 12.8, Platelet Count 321, Mean Platelet Volume 5.7L, Neutrophils (%) (Auto) 72.0, Lymphocytes ( %) (Auto) 11.8L, Monocytes (%) (Auto) 9.9, Eosinophils (%) (Auto) 5.3H, Basophils (%) (Auto) 1.0 Height (Feet): 5 Height (Inches): 4.00 Weight (Pounds): 122 Objective GENERAL: Alert and awake. LUNGS: Decreased breath sounds bilaterally. HEART: S1 and S2 regular. ABDOMEN: Soft and nontender. EXTREMITIES: No CCCE NEURO: No changes. Jacques Jimenez Feb 18, 2019 14:18
--- NOTE | 2019-02-18 15:07 | NUR ---
CASE MANAGEMENT:REVIEW 02/18/19 SI: DISPLACED FEMORAL HIP FRACTURE S/P RT HIP ORIF W/SCREWS T 97.P HR 86 RR 20 B/P 117/66 SATS 97% ON RA NO LABS TODAY IS: IVF@75/HR CELEBREX PO QD NORVASC PO QD PROSCAR PO QD FLOMAX PO QHS HALDOL IM Q6HRS PRN : MED/SURG STATUS 3 EAST
--- NOTE | 2019-02-18 15:18 | NUR ---
*-* INSURANCE *-* UPDATED CLINICALS HAVE BEEN FAXED TO: [facility] P- [phone] F- [phone]....REVIEW/CLINICAL
[2019-02-18] MEDS: HYDROcodone/Acetamin 7.5/325 tab ORAL PRN ×2 (15:32→21:05)
--- NOTE | 2019-02-18 15:46 | NUR ---
P.T NOTE: P.T REATTEMPTED HOWEVER UNSUCCESSFUL DUE TO PATIENT TOO LETHARGIC TO PARTICIPATE. RN NOTIFIED/AWARE.
[2019-02-18 16:00] VITALS: BP 114/77
--- NOTE | 2019-02-18 16:11 | Cardiology Report ---
APPROVED REPORT EKG Measurement Heart [id number] SD 288P50 [id number] Sinus rhythm with 1st degree AV block Left axis deviation Abnormal ECG
--- NOTE | 2019-02-18 17:42 | General Progress Note ---
Assessment/Plan Problem List: (1) Dementia ICD Codes: F03.90 - Unspecified dementia without behavioral disturbance SNOMED: 32599837 (2) Fracture of right hip ICD Codes: S72.001A - Fracture of unspecified part of neck of right femur, initial encounter for closed fracture SNOMED: 772281708 (3) Femur fracture ICD Codes: S72.90XA - Unspecified fracture of unspecified femur, initial encounter for closed fracture SNOMED: 64683747 Qualifiers: Qualified Codes: S72.91XA - Unspecified fracture of right femur, initial encounter for closed fracture Status: progressing Assessment/Plan: s/o orif of hip needs placement reviewed chart and labs agitated psych pt Subjective ROS Limited/Unobtainable: Yes Allergies: Coded Allergies: No Known Allergies (Unverified , 12/07/18) Subjective hip pain at surgical site Objective Last 24 Hour Vital Signs Date Time Temp Pulse Resp B/P (MAP) Pulse Ox O2 Delivery O2 Flow Rate FiO2 02/18/19 16:00 98.2 91 18 114/77 (89) 97 02/18/19 12:00 97.9 86 20 117/66 (83) 97 02/18/19 09:00 Room Air 02/18/19 08:44 82 128/76 02/18/19 08:00 97.5 82 18 128/76 (93) 98 02/18/19 04:00 97.8 18 134/81 (98) 99 02/18/19 00:00 98.0 19 131/79 (96) 98 02/17/19 21:00 Room Air 02/17/19 20:00 97.2 101 18 133/92 (106) 100 Intake and Output 02/17/19 02/18/19 18:59 06:59 Intake Total 400 ml Balance 400 ml Intake Oral 400 ml # Voids 3 Laboratory Tests 02/18/19 05:45: White Blood Count 7.4, Red Blood Count 3.25L, Hemoglobin 9.7L, Hematocrit 29.3L , Mean Corpuscular Volume 90, Mean Corpuscular Hemoglobin 29.7, Mean Corpuscular Hemoglobin Concent 33.0, Red Cell Distribution Width 12.8, Platelet Count 321, Mean Platelet Volume 5.7L, Neutrophils (%) (Auto) 72.0, Lymphocytes ( %) (Auto) 11.8L, Monocytes (%) (Auto) 9.9, Eosinophils (%) (Auto) 5.3H, Basophils (%) (Auto) 1.0 Height (Feet): 5 Height (Inches): 4.00 Weight (Pounds): 122 General Appearance: confused Guido Prieto MD Feb 18, 2019 17:42
--- NOTE | 2019-02-18 19:45 | Progress Note ---
DATE: 02/18/2019 SUBJECTIVE: The patient is more manageable, less anxiety and agitation, confused. Today, the patient is calmer. No suicidal or homicidal ideation. MENTAL STATUS EXAMINATION: The patient is is alert, oriented times self and place. Mood is neutral. Affect is constricted. Congruent with mood. Thought process is concrete. Thought content, no suicidal or homicidal ideation. Cognition is impaired. ASSESSMENT: Stable. PLAN: The patient will be continued on medication. Provide the patient with reality orientation and supportive therapy. Liz Casey M.D. DR: Tomás JOB#: [id number] CC:
[2019-02-18 20:00] VITALS: BP_SYST 113; BP_SYST 118; BP_DIAS 72; BP_DIAS 74
--- NOTE | 2019-02-18 20:00 | NUR ---
N[facility]SE NOTES:[facility] .with episode of confusion. RFA g#24 Patent and intact . Patient [place]ian speaking , Patient denies any pain at this time . no s/s of distress noted . Right hip dressing c/d/I . Patient uses urinals . safety / fall implemented . call light within reach .bed in low position at all times . will continue to monitor.
--- NOTE | 2019-02-18 20:00 | NUR ---
HAND-OFF: Report given to Sandra MORENO. Patient is stable.
[2019-02-18] MEDS: Tamsulosin 0.4mg cap ORAL SCH (21:05)
[2019-02-19] VITALS: BP 128/70
[2019-02-19] MEDS: LORazepam 1mg tab ORAL PRN ×2 (00:49→17:00)
[2019-02-19 04:00] VITALS: BP 133/71
--- NOTE | 2019-02-19 07:28 | NUR ---
NURSE NOTES: Pt awake, A/O x 1, confused. Dressing x 3 on RLE, one dressing with small dry drainage. RLE warm to touch, able to move toes. no SOB noted. Denies pain. bed alarm on, call light within reach . Will continue to monitor.
[2019-02-19 08:00] VITALS: BP 117/68
[2019-02-19] MEDS: Lactulose 20gm/30ml UDC ORAL SCH (08:28)
[2019-02-19] MEDS: Docusate 100mg cap ORAL SCH ×3 (08:28→17:00)
[2019-02-19] MEDS: celeBREX 200mg Cap **SURGERY PATIENTS ONLY ORAL SCH (08:30)
[2019-02-19] MEDS: Miralax 17gm pkt ORAL SCH (08:30)
--- NOTE | 2019-02-19 09:39 | Cardiology Progress Note ---
Assessment/Plan Status: stable Assessment/Plan Assessment/Plan Assessment/Plan 1. Hypertension. On Amlodipine 5 mg daily. 2. Status post R hip ORIF for fall, resulting with right hip fracture. No prior myocardial infarction or congestive heart failure. EKG is nonischemic. Echo normal EF. 3. Benign prostatic hypertrophy on Proscar. 4. Dementia management per Dr. Casey. Subjective Cardiovascular: Reports: no symptoms Respiratory: Reports: no symptoms Gastrointestinal/Abdominal: Reports: no symptoms Genitourinary: Reports: no symptoms Subjective Coverage for [employer] No acute events, vitals stable, no pain, no complaints Objective Last 24 Hour Vital Signs Date Time Temp Pulse Resp B/P (MAP) Pulse Ox O2 Delivery O2 Flow Rate FiO2 02/19/19 08:28 90 117/68 02/19/19 04:00 98.4 93 20 133/71 (91) 98 02/19/19 00:00 97.2 84 20 128/70 (89) 97 02/18/19 21:35 98.2 02/18/19 21:00 Room Air 02/18/19 20:00 98.0 92 18 113/74 (87) 98 02/18/19 20:00 98.2 88 20 118/72 (87) 98 02/18/19 16:00 98.2 91 18 114/77 (89) 97 02/18/19 12:00 97.9 86 20 117/66 (83) 97 General Appearance: no apparent distress, alert EENT: PERRL/EOMI, normal ENT inspection, TMs normal Neck: non-tender, normal alignment, supple, normal inspection Rhythm: NSR Cardiovascular: normal peripheral pulses, normal rate Respiratory/Chest: chest wall non-tender, lungs clear Abdomen: normal bowel sounds, non tender Extremities: normal range of motion, non-tender, normal inspection Neurologic: liver trimmer II-XII grossly normal, no motor/sensory deficits Intake and Output 02/18/19 02/19/19 19:00 07:00 Intake Total 1290 ml Output Total 950 ml Balance 340 ml Intake Oral 1290 ml Output Urine Total 950 ml # Voids 4 Oneil Lopez MD Feb 19, 2019 09:39
[2019-02-19 11:58] VITALS: BP 116/66
--- NOTE | 2019-02-19 15:00 | NUR ---
CASE MANAGEMENT:REVIEW 02/19/19 SI: DISPLACED FEMORAL HIP FRACTURE S/P RT HIP ORIF W/SCREWS T 97.8 HR 90 RR 18 B/P 116/66 SATS 98% ON RA NO LABS TODAY IS: IVF@75/HR CELEBREX PO QD NORVASC PO QD PROSCAR PO QD FLOMAX PO QHS HALDOL IM Q6HRS PRN : MED/SURG STATUS 3 EAST
[2019-02-19 16:00] VITALS: BP 114/69
--- NOTE | 2019-02-19 19:46 | NUR ---
HAT CLEANER Co-Signature Notes: Patient's chart reviewed. HAT CLEANER notes reviewed and approved Addendum: 02/19/19 at 1947 by MG STEVENS PT Amended: Links added.
--- NOTE | 2019-02-19 19:47 | NUR ---
ANODE BUILDER Co-Signature Notes: Patient's chart reviewed. ANODE BUILDER notes reviewed and approved Addendum: 02/19/19 at 1947 by MG STEVENS PT Amended: Links added.
[2019-02-19 20:00] VITALS: BP 122/80
[2019-02-19] MEDS: Tamsulosin 0.4mg cap ORAL SCH (20:18)
[2019-02-19] MEDS: Haloperidol 5mg/ml Inj IM PRN (20:19)
[2019-02-20] VITALS (7 sets, daily range): BP systolic 102–137; BP diastolic 61–81
--- NOTE | 2019-02-20 03:00 | Progress Note ---
DATE: 02/19/2019 SUBJECTIVE: The patient is presenting with anxiety, agitation, waxing and waning consciousness, and memory impairment. Not engaged during the evaluation. He has poor memory. MENTAL STATUS EXAMINATION: The patient is alert, confused, and disoriented. Mood is confused. Affect is flat. Thought process, there is a paucity of thought content. Thought content, no suicidal or homicidal ideations. ASSESSMENT: Stable. The patient's cognition varies. At times, he is confused. PLAN: 1. We will continue current medication. 2. Provide the patient with reality orientation and supportive therapy. Liz Casey M.D. DR: QUYNH JOB#: [id number] CC:
--- NOTE | 2019-02-20 07:15 | NUR ---
HAND-OFF: Report given to Cristian Berman
--- NOTE | 2019-02-20 07:51 | NUR ---
NURSE NOTES: received report from DUARTE Leiva. patient in bed. sleeping. no respiratory distress noted on room air. IV on RFA. dressing on rt hip intact. bed in the lowest position. call light within reach. will continue to provide plan of care
--- NOTE | 2019-02-20 09:14 | Cardiology Progress Note ---
Assessment/Plan Status: stable Assessment/Plan Assessment/Plan Assessment/Plan 1. Hypertension. On Amlodipine 5 mg daily. 2. Status post R hip ORIF for fall, resulting with right hip fracture. No prior myocardial infarction or congestive heart failure. EKG is nonischemic. Echo normal EF. 3. Benign prostatic hypertrophy on Proscar. 4. Dementia management per Dr. Casey. Subjective Cardiovascular: Reports: no symptoms Respiratory: Reports: no symptoms Gastrointestinal/Abdominal: Reports: no symptoms Subjective Coverage for [email or web address] No acute events, vitals stable, no pain, no complaints Objective Last 24 Hour Vital Signs Date Time Temp Pulse Resp B/P (MAP) Pulse Ox O2 Delivery O2 Flow Rate FiO2 02/20/19 04:00 98.0 88 20 113/74 (87) 98 02/20/19 00:01 98.5 88 18 114/76 (89) 98 02/19/19 21:00 Room Air 02/19/19 20:00 98.1 94 18 122/80 (94) 98 02/19/19 16:00 97.8 18 114/69 (84) 98 02/19/19 11:58 97.8 18 116/66 (83) 98 General Appearance: no apparent distress, alert EENT: PERRL/EOMI, normal ENT inspection, TMs normal Neck: non-tender, normal alignment, supple, normal inspection, no JVD Rhythm: NSR Cardiovascular: normal peripheral pulses, normal rate Respiratory/Chest: chest wall non-tender, lungs clear, normal breath sounds Abdomen: normal bowel sounds, non tender, soft, no organomegaly Extremities: normal range of motion, non-tender, normal inspection Neurologic: e commerce director II-XII grossly normal, no motor/sensory deficits Intake and Output 02/19/19 02/20/19 19:00 07:00 Intake Total 1000 ml 400 ml Balance 1000 ml 400 ml Intake Oral 1000 ml 400 ml # Voids 3 4 # Bowel Movements 2 Oneil Lopez MD Feb 20, 2019 09:14
[2019-02-20] MEDS: Docusate 100mg cap ORAL SCH ×3 (09:21→17:39)
[2019-02-20] MEDS: Lactulose 20gm/30ml UDC ORAL SCH (09:21)
[2019-02-20] MEDS: Miralax 17gm pkt ORAL SCH (09:22)
[2019-02-20] MEDS: celeBREX 200mg Cap **SURGERY PATIENTS ONLY ORAL SCH (09:22)
--- NOTE | 2019-02-20 13:20 | General Progress Note ---
Assessment/Plan Status: stable Assessment/Plan: (1) Right hip pain (2) Right hip Fx (3) S/p fall and ORIF (4) Dementia Patient to be continued on [place] D/w Dr. Tapia and he concurred. Subjective Date patient seen: Feb 20, 2019 Time patient seen: 12:45 - pm Allergies: Coded Allergies: No Known Allergies (Unverified , 12/07/18) Subjective REVIEW OF SYSTEMS: Complaining of right hip pain upon movement. Denies rash, fever, chills, sweating, dizziness, drowsiness, sore throat, blurred vision, or change in weight. No shortness of breath or chest pain. No nausea, vomiting, or blood in the stool or urine. No dysuria. SUBJECTIVE: Patient showing no signs of pain or distress. Has taken two doses of norco in the last 24hrs. Denies pain at this time. Objective Last 24 Hour Vital Signs Date Time Temp Pulse Resp B/P (MAP) Pulse Ox O2 Delivery O2 Flow Rate FiO2 02/20/19 12:00 97.6 80 20 137/78 (97) 98 02/20/19 09:21 84 130/81 02/20/19 09:00 Room Air 02/20/19 08:00 97.2 84 18 130/81 (97) 97 02/20/19 04:00 98.0 88 20 113/74 (87) 98 02/20/19 00:01 98.5 88 18 114/76 (89) 98 02/19/19 21:00 Room Air 02/19/19 20:00 98.1 94 18 122/80 (94) 98 02/19/19 16:00 97.8 18 114/69 (84) 98 Intake and Output 02/19/19 02/20/19 19:00 07:00 Intake Total 1000 ml 400 ml Balance 1000 ml 400 ml Intake Oral 1000 ml 400 ml # Voids 3 4 # Bowel Movements 2 Height (Feet): 5 Height (Inches): 4.00 Weight (Pounds): 122 Objective GENERAL: Alert and awake. LUNGS: Decreased breath sounds bilaterally. HEART: S1 and S2 regular. ABDOMEN: Soft and nontender. EXTREMITIES: No CCCE NEURO: No changes. Jacques Jimenez Feb 20, 2019 13:20
[2019-02-20] MEDS ORDERED: HYDROcodone/Acetamin 7.5/325 tab ORAL PRN (14:00)
--- NOTE | 2019-02-20 14:41 | NUR ---
PT note Attempted to see patient for treatment but patient was fast asleep; unable to arouse patient.
--- NOTE | 2019-02-20 19:20 | NUR ---
HAND-OFF: Report given to Juan Maki RN.
--- NOTE | 2019-02-20 19:45 | NUR ---
NURSE NOTES: Patient in bed asleep. No SOB noted. VSS. No pain noted at this time. Bed is locked and in low position. Bed alarm on. Needs attended. Call light within reach. In stable condition.
[2019-02-20] MEDS: Tamsulosin 0.4mg cap ORAL SCH (21:10)
[2019-02-20 21:58] LABS: HEMATOCRIT 28.3 % (42.0-52.0); HEMOGLOBIN 9.3 G/DL (14.2-18.0); MEAN CORPUSCULAR VOLUME 91 FL (80-99); PLATELET COUNT 400 K/UL (150-450); RED BLOOD COUNT 3.12 M/UL (4.70-6.10); RED CELL DISTRIBUTION WIDTH 12.4 % (11.6-14.8); WHITE BLOOD COUNT 7.6 K/UL (4.8-10.8)
[2019-02-20 22:37] LABS: FERRITIN 102 NG/ML (8-388); LACTATE DEHYDROGENASE 211 U/L (81-234)
[2019-02-20 23:07] LABS: % IRON SATURATION 25 % (15-50); IRON 63 ug/dL (50-175); TOTAL IRON BINDING CAPACITY 253 ug/dL (250-450)
[2019-02-21] VITALS: BP 115/72
[2019-02-21] MEDS: Haloperidol 5mg/ml Inj IM PRN (00:28)
[2019-02-21] MEDS: LORazepam 1mg tab ORAL PRN (01:23)
[2019-02-21 04:00] VITALS: BP 121/75
--- NOTE | 2019-02-21 07:02 | NUR ---
NURSE NOTES:BEDSIDE ROUNDS WITH OUTGOING RN(DEWAYNE Escamilla)PATIENT ASLEEP,ROOM AIR,NAD.WILL CONTINUE PLAN OF CARE.
[2019-02-21 08:00] VITALS: BP 133/78
--- NOTE | 2019-02-21 08:31 | General Progress Note ---
Assessment/Plan Status: stable Assessment/Plan: (1) Right hip pain (2) Right hip Fx (3) S/p fall and ORIF (4) Dementia Patient to be continued on [place] D/w Dr. Tapia and he concurred. Subjective Date patient seen: Feb 21, 2019 Time patient seen: 07:30 - am Allergies: Coded Allergies: No Known Allergies (Unverified , 12/07/18) Subjective REVIEW OF SYSTEMS: Denies rash, fever, chills, sweating, dizziness, drowsiness, sore throat, blurred vision, or change in weight. No shortness of breath or chest pain. Complaining of right hip pain. SUBJECTIVE: Patient is in bed and reports that the pain has been tolerated on the [place], The pain is worsened with PT, however has been doing the PT to the best of his abilities. No new complaints at this time. Objective Last 24 Hour Vital Signs Date Time Temp Pulse Resp B/P (MAP) Pulse Ox O2 Delivery O2 Flow Rate FiO2 02/21/19 07:45 Room Air 02/21/19 04:00 98.3 81 18 121/75 (90) 96 02/21/19 00:00 98.1 80 18 115/72 (86) 95 02/20/19 21:00 Room Air 02/20/19 20:00 97.4 82 18 123/69 (87) 94 02/20/19 16:00 98.2 87 18 102/61 (75) 95 02/20/19 12:00 97.6 80 20 137/78 (97) 98 02/20/19 09:21 84 130/81 02/20/19 09:00 Room Air Intake and Output 02/20/19 02/21/19 19:00 07:00 Intake Total 300 ml 400 ml Balance 300 ml 400 ml Intake Oral 300 ml 400 ml # Voids 2 3 Laboratory Tests 02/20/19 21:45: White Blood Count 7.6, Red Blood Count 3.12L, Hemoglobin 9.3L, Hematocrit 28.3L , Mean Corpuscular Volume 91, Mean Corpuscular Hemoglobin 30.0, Mean Corpuscular Hemoglobin Concent 33.0, Red Cell Distribution Width 12.4, Platelet Count 400, Mean Platelet Volume 5.1L, Neutrophils (%) (Auto) , Lymphocytes (%) ( Auto) , Monocytes (%) (Auto) , Eosinophils (%) (Auto) , Basophils (%) (Auto) , Differential Total Cells Counted 100, Neutrophils % (Manual) 70, Lymphocytes % ( Manual) 12L, Monocytes % (Manual) 8, Eosinophils % (Manual) 10H, Basophils % ( Manual) 0, Band Neutrophils 0, Nucleated Red Blood Cells 1, Platelet Estimate Adequate, Platelet Morphology Normal, Red Blood Cell Morphology Normal, Reticulocyte Count 2.1H, Iron Level 63, Total Iron Binding Capacity 253, Percent Iron Saturation 25, Unsaturated Iron Binding 190, Ferritin 102, Lactate Dehydrogenase 211, Vitamin B12 Level 423, Folate 24.5 Height (Feet): 5 Height (Inches): 4.00 Weight (Pounds): 122 Objective GENERAL: Alert and awake. LUNGS: Decreased breath sounds bilaterally. HEART: S1 and S2 regular. ABDOMEN: Soft and nontender. EXTREMITIES: No CCCE NEURO: No changes. Jacques Jimenez Feb 21, 2019 08:31
--- NOTE | 2019-02-21 08:35 | NUR ---
NURSE NOTES:SCHEDULED MEDS GIVEN,PATIENT COOPERATIVE SO FAR,COMPLIANT TO CARE.NO C/O PAIN.
[2019-02-21] MEDS: Docusate 100mg cap ORAL SCH ×3 (08:38→18:12)
[2019-02-21] MEDS: Lactulose 20gm/30ml UDC ORAL SCH (08:38)
[2019-02-21] MEDS: Miralax 17gm pkt ORAL SCH (08:38)
[2019-02-21] MEDS: celeBREX 200mg Cap **SURGERY PATIENTS ONLY ORAL SCH (08:40)
--- NOTE | 2019-02-21 08:49 | Cardiology Report ---
APPROVED REPORT EXAM: Two-dimensional and M-mode echocardiogram with Doppler and color Doppler. INDICATION PRE-OP M-Mode DIMENSIONS IVSd1.3 (0.7-1.1cm)Left Atrium (MM)3.7 (1.6-4.0cm) LVDd3.7 (3.5-5.6cm)Aortic Root2.8 (2.0-3.7cm) PWd1.1 (0.7-1.1cm)Aortic Cusp Exc.2.1 (1.5-2.0cm) IVSs1.4 cm LVDs2.4 (2.5-4.0cm) PWs1.7 cm Technically difficult study due to combative patient ,images obtained from subcostal views. Normal left ventricular chamber size, systolic function and wall motion to extent visualized. Left ventricular ejection fraction estimated to be 55-60%. Mild left ventricular hypertrophy by 2-D. Anterior Echo-free space, may be due to pericardial fat or effusion. All other cardiac chamber sizes are within normal limits. Aortic valve calcification with normal cusp excursion . Mildly thickened mitral valve leaflets with normal excursion. Mild mitral annulus and aortic root calcification. Pulmonic valve not well visualized. IVC at normal size with physiologic collapse . A color flow and spectral Doppler study was performed and revealed: Trace aortic insufficiency . Mitral inflow indicates normal left ventricular diastolic function. Trace mitral regurgitation. Mild tricuspid regurgitation. Tricuspid systolic velocities suggests peak right ventricular systolic pressure of 10mmHg.
--- NOTE | 2019-02-21 11:24 | GI Progress Note ---
Assessment/Plan Problems: (1) Dementia ICD Codes: F03.90 - Unspecified dementia without behavioral disturbance SNOMED: 04977931 (2) Altered mental status ICD Codes: R41.82 - Altered mental status, unspecified SNOMED: 445002104 (3) Fracture of right hip ICD Codes: S72.001A - Fracture of unspecified part of neck of right femur, initial encounter for closed fracture SNOMED: 132503113 (4) Femur fracture ICD Codes: S72.90XA - Unspecified fracture of unspecified femur, initial encounter for closed fracture SNOMED: 67161176 Qualifiers: Qualified Codes: S72.91XA - Unspecified fracture of right femur, initial encounter for closed fracture (5) Constipation ICD Codes: K59.00 - Constipation, unspecified SNOMED: 43404412 Status: unchanged Status Narrative Discussed with Dr. Delarosa Assessment/Plan had BM bowel regimen zofran prn fu labs post op care The patient was seen and examined at bedside and all new and available data was reviewed in the patients chart. I agree with the above findings, impression and plan. (Patient seen earlier today. Signature stamp does not reflect patient encounter time.). - Yung Delarosa MD Subjective Gastrointestinal/Abdominal: Reports: no symptoms Objective Last 24 Hour Vital Signs Date Time Temp Pulse Resp B/P (MAP) Pulse Ox O2 Delivery O2 Flow Rate FiO2 02/21/19 08:39 83 133/78 02/21/19 08:00 98.2 83 20 133/78 (96) 98 02/21/19 07:45 Room Air 02/21/19 04:00 98.3 81 18 121/75 (90) 96 02/21/19 00:00 98.1 80 18 115/72 (86) 95 02/20/19 21:00 Room Air 02/20/19 20:00 97.4 82 18 123/69 (87) 94 02/20/19 16:00 98.2 87 18 102/61 (75) 95 02/20/19 12:00 97.6 80 20 137/78 (97) 98 Intake and Output 02/20/19 02/21/19 19:00 07:00 Intake Total 300 ml 400 ml Balance 300 ml 400 ml Intake Oral 300 ml 400 ml # Voids 2 3 Laboratory Tests Test 6/30/19 21:45 White Blood Count 7.6 K/UL (4.8-10.8) Red Blood Count 3.12 M/UL (4.70-6.10) L Hemoglobin 9.3 G/DL (14.2-18.0) L Hematocrit 28.3 % (42.0-52.0) L Mean Corpuscular Volume 91 FL (80-99) Mean Corpuscular Hemoglobin 30.0 PG (27.0-31.0) Mean Corpuscular Hemoglobin Concent 33.0 G/DL (32.0-36.0) Red Cell Distribution Width 12.4 % (11.6-14.8) Platelet Count 400 K/UL (150-450) Mean Platelet Volume 5.1 FL (6.5-10.1) L Neutrophils (%) (Auto) % (45.0-75.0) Lymphocytes (%) (Auto) % (20.0-45.0) Monocytes (%) (Auto) % (1.0-10.0) Eosinophils (%) (Auto) % (0.0-3.0) Basophils (%) (Auto) % (0.0-2.0) Differential Total Cells Counted 100 Neutrophils % (Manual) 70 % (45-75) Lymphocytes % (Manual) 12 % (20-45) L Monocytes % (Manual) 8 % (1-10) Eosinophils % (Manual) 10 % (0-3) H Basophils % (Manual) 0 % (0-2) Band Neutrophils 0 % (0-8) Nucleated Red Blood Cells 1 /100 WBC Other Cell Type Pathologist review Platelet Estimate Adequate Platelet Morphology Normal Red Blood Cell Morphology Normal Reticulocyte Count 2.1 % (0.5-2.0) H Iron Level 63 ug/dL (50-175) Total Iron Binding Capacity 253 ug/dL (250-450) Percent Iron Saturation 25 % (15-50) Unsaturated Iron Binding 190 ug/dL (112-346) Ferritin 102 NG/ML (8-388) Lactate Dehydrogenase 211 U/L (81-234) Vitamin B12 Level 423 PG/ML (193-986) Folate 24.5 NG/ML (8.6-58.9) Height (Feet): 5 Height (Inches): 4.00 Weight (Pounds): 122 General Appearance: WD/WN, no apparent distress, alert Cardiovascular: normal rate Respiratory/Chest: normal breath sounds, no respiratory distress Abdominal Exam: normal bowel sounds, non tender, soft, other - Surgical incision Extremities: non-tender Jocelyn Sanchez NP Feb 21, 2019 11:24
[2019-02-21 12:00] VITALS: BP 108/70
--- NOTE | 2019-02-21 13:24 | General Progress Note ---
Assessment/Plan Status: unchanged Assessment/Plan: Problem List: (1) Dementia ICD Codes: F03.90 - Unspecified dementia without behavioral disturbance SNOMED: 02910430 (2) Fracture of right hip ICD Codes: S72.001A - Fracture of unspecified part of neck of right femur, initial encounter for closed fracture SNOMED: 555201770 (3) Femur fracture ICD Codes: S72.90XA - Unspecified fracture of unspecified femur, initial encounter for closed fracture SNOMED: 00404990 Qualifiers: Qualified Codes: S72.91XA - Unspecified fracture of right femur, initial encounter for closed fracture Status: progressing Assessment/Plan: s/o orif of hip reviewed chart and labs agitated psych pt placement pending Subjective Constitutional: Denies: no symptoms, chills, diaphoresis, fever, malaise, weakness, other HEENT: Denies: no symptoms, eye pain, blurred vision, tearing, double vision, ear pain, ear discharge, nose pain, nose congestion, throat pain, throat swelling, mouth pain, mouth swelling, other Cardiovascular: Denies: no symptoms, chest pain, edema, irregular heart rate, lightheadedness, palpitations, syncope, other Genitourinary: Denies: no symptoms, burning, discharge, frequency, flank pain, hematuria, incontinence, pain, urgency, other Neurologic/Psychiatric: Denies: no symptoms, anxiety, depressed, emotional problems, headache, numbness, paresthesia, pre-existing deficit, seizure, tingling, tremors, weakness, other Endocrine: Denies: no symptoms, excessive sweating, flushing, intolerance to cold, intolerance to heat, increased hunger, increased thirst, increased urine, unexplained weight gain, unexplained weight loss, other Hematologic/Lymphatic: Denies: no symptoms, anemia, easy bleeding, easy bruising, other Allergies: Coded Allergies: No Known Allergies (Unverified , 12/07/18) Subjective 02/21: no events noted, no f/c, no bleeding Objective Last 24 Hour Vital Signs Date Time Temp Pulse Resp B/P (MAP) Pulse Ox O2 Delivery O2 Flow Rate FiO2 02/21/19 12:00 97.5 81 18 108/70 (83) 97 02/21/19 08:39 83 133/78 02/21/19 08:00 98.2 83 20 133/78 (96) 98 02/21/19 07:45 Room Air 02/21/19 04:00 98.3 81 18 121/75 (90) 96 02/21/19 00:00 98.1 80 18 115/72 (86) 95 02/20/19 21:00 Room Air 02/20/19 20:00 97.4 82 18 123/69 (87) 94 02/20/19 16:00 98.2 87 18 102/61 (75) 95 Intake and Output 02/20/19 02/21/19 19:00 07:00 Intake Total 300 ml 400 ml Balance 300 ml 400 ml Intake Oral 300 ml 400 ml # Voids 2 3 Laboratory Tests 02/20/19 21:45: White Blood Count 7.6, Red Blood Count 3.12L, Hemoglobin 9.3L, Hematocrit 28.3L , Mean Corpuscular Volume 91, Mean Corpuscular Hemoglobin 30.0, Mean Corpuscular Hemoglobin Concent 33.0, Red Cell Distribution Width 12.4, Platelet Count 400, Mean Platelet Volume 5.1L, Neutrophils (%) (Auto) , Lymphocytes (%) ( Auto) , Monocytes (%) (Auto) , Eosinophils (%) (Auto) , Basophils (%) (Auto) , Differential Total Cells Counted 100, Neutrophils % (Manual) 70, Lymphocytes % ( Manual) 12L, Monocytes % (Manual) 8, Eosinophils % (Manual) 10H, Basophils % ( Manual) 0, Band Neutrophils 0, Nucleated Red Blood Cells 1, Other Cell Type Pathologist review, Platelet Estimate Adequate, Platelet Morphology Normal, Red Blood Cell Morphology Normal, Reticulocyte Count 2.1H, Iron Level 63, Total Iron Binding Capacity 253, Percent Iron Saturation 25, Unsaturated Iron Binding 190, Ferritin 102, Lactate Dehydrogenase 211, Vitamin B12 Level 423, Folate 24.5 Height (Feet): 5 Height (Inches): 4.00 Weight (Pounds): 122 Objective Physical Exam: Vitals: reviewed General Appearance: NAD HEENT: normocephalic, atraumatic Neck: non-tender, normal alignment Respiratory/Chest: normal breath sounds bilaterally Cardiovascular/Chest: normal peripheral pulses, normal rate Abdomen: normal bowel sounds, soft, nontender Extremities: normal range of motion Figueroa Valdivia MD Feb 21, 2019 13:24
--- NOTE | 2019-02-21 13:38 | NUR ---
CASE MANAGEMENT:REVIEW 02/20/19 SI: DISPLACED FEMORAL HIP FRACTURE S/P RT HIP ORIF W/SCREWS T 97.4 HR 82 RR 18 B/P 123/69 SATS 94% ON RA LABS WNL IS: IVF@75/HR CELEBREX PO QD NORVASC PO QD PROSCAR PO QD FLOMAX PO QHS HALDOL IM Q6HRS PRN : MED/SURG STATUS 3 [facility] 02/21/2019 SI: DISPLACED FEMORAL HIP FRACTURE S/P RT HIP ORIF W/SCREWS T 97.5 HR 81 RR 18 B/P 108/70 SATS 97% ON RA NO LABS TODAY IS: IVF@75/HR CELEBREX PO QD NORVASC PO QD PROSCAR PO QD FLOMAX PO QHS HALDOL IM Q6HRS PRN : MED/SURG STATUS 3 [facility]
--- NOTE | 2019-02-21 14:10 | NUR ---
RD ASSESSMENT & RECOMMENDATIONS SEE CARE ACTIVITY FOR COMPLETE ASSESSMENT DAILY ESTIMATED NEEDS: Needs based on surgery 55.5kg 25-35 kcals/kg 5866-5402 total kcals 1-2 g protein/kg 56-111 g total protein 25-30 mL/kg 5773-9628 total fluid mLs NUTRITION DIAGNOSIS: Increased kcal and pro needs r/t surgery as evidenced by s/p R hip ORIF. CURRENT DIET:Regular PO DIET RECOMMENDATIONS: Regular diet/ texture as tolerated ADDITIONAL RECOMMENDATIONS: 1) Obtain a calibrated bed scale wt EMR wt: 122lbs Bed scale wt: 139lbs 2) Monitor for continued good po intake 3) Pt on multiple psych meds, monitor alertness for meals 4) HUI BID for surgical wound healing
--- NOTE | 2019-02-21 15:59 | Cardiac Electrophysiology PN ---
Assessment/Plan Assessment/Plan 1. Hypertension. On Amlodipine 5 mg daily. 2. Status post R hip ORIF for fall, resulting with right hip fracture. No prior myocardial infarction or congestive heart failure. EKG is nonischemic. Echo normal EF. 3. Benign prostatic hypertrophy on Proscar. 4. Dementia DW RN Awaiting rehab placement Subjective Subjective No events.Comfortable in NAD Objective Last 24 Hour Vital Signs Date Time Temp Pulse Resp B/P (MAP) Pulse Ox O2 Delivery O2 Flow Rate FiO2 02/21/19 12:00 97.5 81 18 108/70 (83) 97 02/21/19 08:39 83 133/78 02/21/19 08:00 98.2 83 20 133/78 (96) 98 02/21/19 07:45 Room Air 02/21/19 04:00 98.3 81 18 121/75 (90) 96 02/21/19 00:00 98.1 80 18 115/72 (86) 95 02/20/19 21:00 Room Air 02/20/19 20:00 97.4 82 18 123/69 (87) 94 02/20/19 16:00 98.2 87 18 102/61 (75) 95 Intake and Output 02/20/19 02/21/19 19:00 07:00 Intake Total 300 ml 400 ml Balance 300 ml 400 ml Intake Oral 300 ml 400 ml # Voids 2 3 Laboratory Tests Test 02/20/19 21:45 White Blood Count 7.6 K/UL (4.8-10.8) Red Blood Count 3.12 M/UL (4.70-6.10) L Hemoglobin 9.3 G/DL (14.2-18.0) L Hematocrit 28.3 % (42.0-52.0) L Mean Corpuscular Volume 91 FL (80-99) Mean Corpuscular Hemoglobin 30.0 PG (27.0-31.0) Mean Corpuscular Hemoglobin Concent 33.0 G/DL (32.0-36.0) Red Cell Distribution Width 12.4 % (11.6-14.8) Platelet Count 400 K/UL (150-450) Mean Platelet Volume 5.1 FL (6.5-10.1) L Neutrophils (%) (Auto) % (45.0-75.0) Lymphocytes (%) (Auto) % (20.0-45.0) Monocytes (%) (Auto) % (1.0-10.0) Eosinophils (%) (Auto) % (0.0-3.0) Basophils (%) (Auto) % (0.0-2.0) Differential Total Cells Counted 100 Neutrophils % (Manual) 70 % (45-75) Lymphocytes % (Manual) 12 % (20-45) L Monocytes % (Manual) 8 % (1-10) Eosinophils % (Manual) 10 % (0-3) H Basophils % (Manual) 0 % (0-2) Band Neutrophils 0 % (0-8) Nucleated Red Blood Cells 1 /100 WBC Other Cell Type Pathologist review Platelet Estimate Adequate Platelet Morphology Normal Red Blood Cell Morphology Normal Reticulocyte Count 2.1 % (0.5-2.0) H Iron Level 63 ug/dL (50-175) Total Iron Binding Capacity 253 ug/dL (250-450) Percent Iron Saturation 25 % (15-50) Unsaturated Iron Binding 190 ug/dL (112-346) Ferritin 102 NG/ML (8-388) Lactate Dehydrogenase 211 U/L (81-234) Vitamin B12 Level 423 PG/ML (193-986) Folate 24.5 NG/ML (8.6-58.9) Objective HEAD AND SHOWED: No JVD LUNGS: Clear. CARDIOVASCULAR: Regular S1 and S2 with no gallop or murmur. ABDOMEN: Soft. EXTREMITIES: No pitting edema. S/P ORIF right femur Niranjan Campbell MD Feb 21, 2019 15:59
[2019-02-21 16:00] VITALS: BP 114/72
--- NOTE | 2019-02-21 17:00 | NUR ---
NURSE NOTES:continue to be cooperative to care,eating with good appetite.using urinal to void.
--- NOTE | 2019-02-21 17:27 | NUR ---
*-* INSURANCE *-* UPDATED CLINICALS HAVE BEEN FAXED TO: [facility] P- [phone]....REVIEW/CLINICAL
--- NOTE | 2019-02-21 19:21 | NUR ---
HAND-OFF: Report given to BRANDON RAMACHANDRAN.PATIENT STABLE.
[2019-02-21 20:00] VITALS: BP 117/71
--- NOTE | 2019-02-21 20:10 | NUR ---
NURSE NOTES: Patient in bed awake. Patient is confused but verbally responsive. No SOB noted. Bed alarm on. Needs attended. Call light within reach. In stable condition.
[2019-02-21] MEDS: Tamsulosin 0.4mg cap ORAL SCH (20:17)
--- NOTE | 2019-02-21 23:30 | Progress Note ---
DATE: 02/21/2019 SUBJECTIVE: The patient is asleep and arousable. Continues to have episodes of agitation. Poor insight and judgment. MENTAL STATUS EXAMINATION: The patient is alert, oriented times self, place, and situation. Mood is depressed and anxious. Affect is constricted, congruent with mood. Thought process is concrete. Thought content, no suicidal or homicidal ideation. Memory is impaired. ASSESSMENT: Stable. PLAN: 1. The patient will be continued on current medication. 2. Provide the patient with reality orientation and supportive therapy. We will continue to follow and readjust the medications. Liz Casey M.D. DR: MUSA JOB#: [id number] CC:
[2019-02-22] VITALS: BP 143/77
[2019-02-22] MEDS: LORazepam 1mg tab ORAL PRN (00:36)
[2019-02-22] MEDS: Haloperidol 5mg/ml Inj IM PRN (02:14)
[2019-02-22 04:00] VITALS: BP 117/86
[2019-02-22 06:40] LABS: BASOPHILS % (AUTO) 1.5 % (0.0-2.0); EOSINOPHILS % (AUTO) 5.2 % (0.0-3.0); HEMATOCRIT 29.4 % (42.0-52.0); HEMOGLOBIN 9.9 G/DL (14.2-18.0); LYMPHOCYTES % (AUTO) 14.8 % (20.0-45.0); MEAN CORPUSCULAR VOLUME 93 FL (80-99); NEUTROPHILS % (AUTO) 68.5 % (45.0-75.0); PLATELET COUNT 411 K/UL (150-450); RED BLOOD COUNT 3.16 M/UL (4.70-6.10); RED CELL DISTRIBUTION WIDTH 13.1 % (11.6-14.8); WHITE BLOOD COUNT 10.4 K/UL (4.8-10.8)
--- NOTE | 2019-02-22 07:10 | NUR ---
NURSE NOTES:REPORT GIVEN BY BRANDON CORONADO RN.BEDSIDE ROUNDS DONE,PT.AWAKE,ORIENTED TO NAME,SMILING,RIGHT HIP DRESSING C/D/I.NO SIGN OF PAIN.WILL CONTINUE CURRENT PLAN OF CARE.
[2019-02-22 07:12] LABS: ANION GAP 11 mmol/L (5-15); BLOOD UREA NITROGEN 39 mg/dL (7-18); CALCIUM 8.8 MG/DL (8.5-10.1); CARBON DIOXIDE 22 MMOL/L (21-32); CHLORIDE 110 MMOL/L (98-107); CREATININE 1.2 MG/DL (0.55-1.30); POTASSIUM 4.4 MMOL/L (3.5-5.1); SODIUM 143 MMOL/L (136-145)
[2019-02-22 08:00] VITALS: BP 122/76
[2019-02-22] MEDS: Miralax 17gm pkt ORAL SCH (08:06)
[2019-02-22] MEDS: Lactulose 20gm/30ml UDC ORAL SCH (08:06)
[2019-02-22] MEDS: Docusate 100mg cap ORAL SCH ×3 (08:06→17:35)
[2019-02-22] MEDS: celeBREX 200mg Cap **SURGERY PATIENTS ONLY ORAL SCH (08:07)
--- NOTE | 2019-02-22 08:11 | General Progress Note ---
Assessment/Plan Assessment/Plan: (1) Right hip pain (2) Right hip Fx (3) S/p fall and ORIF (4) Dementia Patient to be continued on [place] D/w Dr. Tapia and he concurred. Subjective Date patient seen: Feb 22, 2019 Time patient seen: 07:00 - am Allergies: Coded Allergies: No Known Allergies (Unverified , 12/07/18) Subjective REVIEW OF SYSTEMS: Denies rash, fever, chills, sweating, dizziness, drowsiness, sore throat, blurred vision, or change in weight. No shortness of breath or chest pain. Complaining of right hip pain. SUBJECTIVE: Patient is in bed no c/o pain and is showing no signs of pain or distress. Has no new complaints at this time. Objective Last 24 Hour Vital Signs Date Time Temp Pulse Resp B/P (MAP) Pulse Ox O2 Delivery O2 Flow Rate FiO2 02/22/19 08:07 106 122/76 02/22/19 07:18 Room Air 02/22/19 04:00 97.6 80 17 117/86 (96) 99 02/22/19 00:00 98.0 91 18 143/77 (99) 97 02/21/19 21:00 Room Air 02/21/19 20:00 97.8 89 19 117/71 (86) 97 02/21/19 16:00 97.0 73 18 114/72 (86) 96 02/21/19 12:00 97.5 81 18 108/70 (83) 97 02/21/19 08:39 83 133/78 Intake and Output 02/21/19 02/22/19 19:00 07:00 Intake Total 900 ml 480 ml Output Total 350 ml 800 ml Balance 550 ml -320 ml Intake Oral 900 ml 480 ml Output Urine Total 350 ml 800 ml # Voids 1 4 Laboratory Tests 02/22/19 05:10: White Blood Count 10.4, Red Blood Count 3.16L, Hemoglobin 9.9L, Hematocrit 29.4L , Mean Corpuscular Volume 93, Mean Corpuscular Hemoglobin 31.2H, Mean Corpuscular Hemoglobin Concent 33.5, Red Cell Distribution Width 13.1, Platelet Count 411, Mean Platelet Volume 4.9L, Neutrophils (%) (Auto) 68.5, Lymphocytes ( %) (Auto) 14.8L, Monocytes (%) (Auto) 10.0, Eosinophils (%) (Auto) 5.2H, Basophils (%) (Auto) 1.5, Sodium Level 143, Potassium Level 4.4, Chloride Level 110H, Carbon Dioxide Level 22, Anion Gap 11, Blood Urea Nitrogen 39H, Creatinine 1.2, Estimat Glomerular Filtration Rate , Glucose Level 95, Calcium Level 8.8 Height (Feet): 5 Height (Inches): 4.00 Weight (Pounds): 122 Objective GENERAL: Alert and awake. LUNGS: Decreased breath sounds bilaterally. HEART: S1 and S2 regular. ABDOMEN: Soft and nontender. EXTREMITIES: No CCCE NEURO: No changes. Jacques Jimenez Feb 22, 2019 08:11
--- NOTE | 2019-02-22 09:09 | NUR ---
NURSE NOTES:looks happy and cooperative,singing [place] songs.compliant in using urinal.
--- NOTE | 2019-02-22 10:51 | GI Progress Note ---
Assessment/Plan Problems: (1) Dementia ICD Codes: F03.90 - Unspecified dementia without behavioral disturbance SNOMED: 76497019 (2) Altered mental status ICD Codes: R41.82 - Altered mental status, unspecified SNOMED: 703848212 (3) Fracture of right hip ICD Codes: S72.001A - Fracture of unspecified part of neck of right femur, initial encounter for closed fracture SNOMED: 204175363 (4) Femur fracture ICD Codes: S72.90XA - Unspecified fracture of unspecified femur, initial encounter for closed fracture SNOMED: 62985129 Qualifiers: Qualified Codes: S72.91XA - Unspecified fracture of right femur, initial encounter for closed fracture (5) Constipation ICD Codes: K59.00 - Constipation, unspecified SNOMED: 87962845 Status: stable Status Narrative Discussed with Dr. Delarosa. Assessment/Plan had BM bowel regimen zofran prn fu labs post op care The patient was seen and examined at bedside and all new and available data was reviewed in the patients chart. I agree with the above findings, impression and plan. (Patient seen earlier today. Signature stamp does not reflect patient encounter time.). - Yung Delarosa MD Subjective Gastrointestinal/Abdominal: Reports: no symptoms Objective Last 24 Hour Vital Signs Date Time Temp Pulse Resp B/P (MAP) Pulse Ox O2 Delivery O2 Flow Rate FiO2 02/22/19 08:07 106 122/76 02/22/19 08:00 97.6 106 20 122/76 (91) 98 02/22/19 07:18 Room Air 02/22/19 04:00 97.6 80 17 117/86 (96) 99 02/22/19 00:00 98.0 91 18 143/77 (99) 97 02/21/19 21:00 Room Air 02/21/19 20:00 97.8 89 19 117/71 (86) 97 02/21/19 16:00 97.0 73 18 114/72 (86) 96 02/21/19 12:00 97.5 81 18 108/70 (83) 97 Intake and Output 02/21/19 02/22/19 19:00 07:00 Intake Total 900 ml 480 ml Output Total 350 ml 800 ml Balance 550 ml -320 ml Intake Oral 900 ml 480 ml Output Urine Total 350 ml 800 ml # Voids 1 4 Laboratory Tests Test 02/22/19 05:10 White Blood Count 10.4 K/UL (4.8-10.8) Red Blood Count 3.16 M/UL (4.70-6.10) L Hemoglobin 9.9 G/DL (14.2-18.0) L Hematocrit 29.4 % (42.0-52.0) L Mean Corpuscular Volume 93 FL (80-99) Mean Corpuscular Hemoglobin 31.2 PG (27.0-31.0) H Mean Corpuscular Hemoglobin Concent 33.5 G/DL (32.0-36.0) Red Cell Distribution Width 13.1 % (11.6-14.8) Platelet Count 411 K/UL (150-450) Mean Platelet Volume 4.9 FL (6.5-10.1) L Neutrophils (%) (Auto) 68.5 % (45.0-75.0) Lymphocytes (%) (Auto) 14.8 % (20.0-45.0) L Monocytes (%) (Auto) 10.0 % (1.0-10.0) Eosinophils (%) (Auto) 5.2 % (0.0-3.0) H Basophils (%) (Auto) 1.5 % (0.0-2.0) Sodium Level 143 MMOL/L (136-145) Potassium Level 4.4 MMOL/L (3.5-5.1) Chloride Level 110 MMOL/L (98-107) H Carbon Dioxide Level 22 MMOL/L (21-32) Anion Gap 11 mmol/L (5-15) Blood Urea Nitrogen 39 mg/dL (7-18) H Creatinine 1.2 MG/DL (0.55-1.30) Estimat Glomerular Filtration Rate mL/min (>60) Glucose Level 95 MG/DL (74-106) Calcium Level 8.8 MG/DL (8.5-10.1) Height (Feet): 5 Height (Inches): 4.00 Weight (Pounds): 122 General Appearance: WD/WN, no apparent distress, alert Cardiovascular: normal rate Respiratory/Chest: normal breath sounds, no respiratory distress Abdominal Exam: normal bowel sounds, non tender, soft Extremities: normal range of motion, non-tender Jocelyn Sanchez FURNITURE SHAMPOOER Feb 22, 2019 10:51
--- NOTE | 2019-02-22 11:24 | NUR ---
CASE MANAGEMENT: REVIEW 02/22/2019 SI: DISPLACED FEMORAL HIP FRACTURE S/P RT HIP ORIF W/SCREWS T 97.6 HR 106 RR 20 B/P 122/76 SATS 98% ON RA CL 110 BUN 39 IS: IVF@75/HR CELEBREX PO QD NORVASC PO QD PROSCAR PO QD FLOMAX PO QHS HALDOL IM Q6HRS PRN : MED/SURG STATUS 3 EAST
--- NOTE | 2019-02-22 11:26 | NUR ---
*-* INSURANCE *-* REVIEWS HAVE BEEN FAXED TO: [employer] CHRISTINE P- [phone] F- [phone]....REVIEW/CLINICAL
[2019-02-22 12:00] VITALS: BP 132/87
[2019-02-22 15:57] VITALS: BP 96/67
--- NOTE | 2019-02-22 16:04 | NUR ---
DISCHARGE PLANNING: NOTE 1)[facility]>> RAY>> NO MALE BEDS 2)[facility]>>> LUKE>> REQUESTED UPDATED CLINICALS 3)[facility] >> UNABLE TO ACCOMMODATE 4)[facility] >> EMAN>> UNABLE TO ACCEPT AT THIS TIME 5)[facility] >>> LIBIA>> FULL 6)[facility] >> RANDA >> REFAX TO [phone] 7)[facility]>> JONNY>> UNABLE TO ACCEPT D/T SAFETY CONCERNS 8)[facility] >> ABIOLA >>> NO LTC BEDS 9)[facility] >> NOT AVAILABE AT THIS TIME 10)[facility] UNABLE TO ACCEPT D/T STAIRS AND NO ELEVATOR 11)[facility] >> SAM>>> NOT ACCEPTING D/T AGGRESSIVE BEHAVIOR 12)[facility]>> DAMON>> REFAX TO [phone] 13)[facility] >> MESSAGE LEFT FOR RAYMOND T [phone] 14)[facility] >> KELLEY>> IS REVIEWING FOR ACCEPTANCE 15)[facility] >> SARA>> REFAX TO [phone] 16)[facility]>>> GENE>> NO MALE BEDS 17)[facility]>>MARIOLA>> NO MALE BEDS 18)[facility]>> RUKHSANA >> NO MALE BEDS 19)[facility] >> SEAN>> NOT CONTRACTED WITH [facility] 20)[facility]>> TYREE>> REFAX [phone] 21)[facility]>> MENDY>> NO LONG TERM BEDS AND UNWILLING TO ACCEPT HIM SKILLED. 22)[facility]>> CLARA>> NO LONG TERM BEDS 23)[facility] >> MESSI>> NO LONG TERM LTC BEDS 24)[facility]>> NAN>> REFAX TO [phone] 25)[facility]>> RICARDO>> REFAX TO [phone] 26)[facility] >> MESSI >> MESSI>> NO LTC LONG TERM BEDS 27)[facility]>> VM LEFT FOR ADMISSIONS 28)[facility]>> VM LEFT FOR ADMISSIONS 29)[facility] >> LOLIS>> NO MALE BEDS X2 [facility] WILL ACCEPT THIS PATIENT TO ROOM 16A PER RICARDO BALDWIN WILL TAKE REPORT DEUCE LEDESMA ON 3E NOTIFIED
--- NOTE | 2019-02-22 16:22 | NUR ---
P.T WEEKLY PROGRESS NOTES: PATIENT DEMONSTRATE SLOW HOWEVER STEADY PROGRESS IN THERAPY. PROGRESS IS LIMITED BY PAIN, COGNITIVE ISSUE WHERE PATIENT CAN BE UNCOOPERATIVE OR PLEASANT AND COOPERATIVE DEPENDING ON HIS MOOD. PATIENT CURRENTLY ABLE TO PERFORM BED MOBILITY AND TRANSFER WITH ASSISTANCE FLUCTUATES FROM MIN TO MOD A X 1. PATIENT AMBULATES AND TOLERATES AVERAGE DISTANCE OF 70 FEET USING THE FWW WITH MIN-MOD A X 1. OVERALL FAIR ENDURANCE. WILL CONTINUE WITH POC WITH PROGRESSION OF ACTIVITIES TO TOLERANCE. RECOMMENDING SN[facility] FOR [facility].
--- NOTE | 2019-02-22 16:30 | NUR ---
DISCHARGE DISPOSITION: PLEASE READ PATIENT TO BE DISCHARGED TO [facility] [address] [facility] ROOM [address]A T: [phone]>> CALL DENNY FOR REPORT [facility] ETA [address] SON/ANGLE MENDOZA JR MADE AWARE OF THE DC. NEW ADDRESS AND TELEPHONE PROVIDED. SON IS AGREEABLE TO DCP.
--- NOTE | 2019-02-22 16:30 | NUR ---
NURSE NOTES:REPORT GIVEN TO DENNY RAMACHANDRAN.RE:TRANSFER REPORT TO [facility].
--- NOTE | 2019-02-22 18:00 | Progress Note ---
DATE: 02/22/2019 SUBJECTIVE: The patient is calm, follows directions. Has poor memory and insight into his mental condition. Less agitated. MENTAL STATUS EXAMINATION: The patient is alert, oriented x3. Mood is dysphoric. Affect is constricted, congruent with mood. Thought process is concrete. Thought content, no suicidal or homicidal ideations. ASSESSMENT: Stable. PLAN: 1. The patient will be continued on current medication. 2. Provide the patient with reality orientation and supportive therapy. Liz Casey M.D. DR: MUSA JOB#: [id number] CC:
--- NOTE | 2019-02-22 19:25 | NUR ---
NURSE NOTES:picked up by [facility] ambulance,report given to ally sauceda(ambulance tech)patient stable on pickup.
--- NOTE | 2019-02-22 19:31 | Cardiac Electrophysiology PN ---
Assessment/Plan Assessment/Plan 1. Hypertension. On Amlodipine 5 mg daily. 2. Status post R hip ORIF for fall and right hip fracture. No prior myocardial infarction or congestive heart failure. EKG is nonischemic. Echo normal EF. 3. Benign prostatic hypertrophy on Proscar. 4. Dementia DW RN DC to [facility] today Subjective Subjective No events.Comfortable in NAD. DC to SNIF in progress Objective Last 24 Hour Vital Signs Date Time Temp Pulse Resp B/P (MAP) Pulse Ox O2 Delivery O2 Flow Rate FiO2 02/22/19 15:57 97.9 93 20 96/67 (77) 97 02/22/19 12:00 97.4 82 20 132/87 (102) 97 02/22/19 08:07 106 122/76 02/22/19 08:00 97.6 106 20 122/76 (91) 98 02/22/19 07:18 Room Air 02/22/19 04:00 97.6 80 17 117/86 (96) 99 02/22/19 00:00 98.0 91 18 143/77 (99) 97 02/21/19 21:00 Room Air 02/21/19 20:00 97.8 89 19 117/71 (86) 97 Intake and Output 02/21/19 02/22/19 19:00 07:00 Intake Total 900 ml 480 ml Output Total 350 ml 800 ml Balance 550 ml -320 ml Intake Oral 900 ml 480 ml Output Urine Total 350 ml 800 ml # Voids 1 4 Laboratory Tests Test 02/22/19 05:10 White Blood Count 10.4 K/UL (4.8-10.8) Red Blood Count 3.16 M/UL (4.70-6.10) L Hemoglobin 9.9 G/DL (14.2-18.0) L Hematocrit 29.4 % (42.0-52.0) L Mean Corpuscular Volume 93 FL (80-99) Mean Corpuscular Hemoglobin 31.2 PG (27.0-31.0) H Mean Corpuscular Hemoglobin Concent 33.5 G/DL (32.0-36.0) Red Cell Distribution Width 13.1 % (11.6-14.8) Platelet Count 411 K/UL (150-450) Mean Platelet Volume 4.9 FL (6.5-10.1) L Neutrophils (%) (Auto) 68.5 % (45.0-75.0) Lymphocytes (%) (Auto) 14.8 % (20.0-45.0) L Monocytes (%) (Auto) 10.0 % (1.0-10.0) Eosinophils (%) (Auto) 5.2 % (0.0-3.0) H Basophils (%) (Auto) 1.5 % (0.0-2.0) Sodium Level 143 MMOL/L (136-145) Potassium Level 4.4 MMOL/L (3.5-5.1) Chloride Level 110 MMOL/L (98-107) H Carbon Dioxide Level 22 MMOL/L (21-32) Anion Gap 11 mmol/L (5-15) Blood Urea Nitrogen 39 mg/dL (7-18) H Creatinine 1.2 MG/DL (0.55-1.30) Estimat Glomerular Filtration Rate mL/min (>60) Glucose Level 95 MG/DL (74-106) Calcium Level 8.8 MG/DL (8.5-10.1) Objective HEAD AND SHOWED: No JVD LUNGS: Clear. CARDIOVASCULAR: Regular S1 and S2 with no gallop or murmur. ABDOMEN: Soft. EXTREMITIES: No pitting edema. S/P ORIF right femur Niranjan Campbell MD Feb 22, 2019 19:31
--- NOTE | 2019-02-22 21:56 | Hematology/Onc Progress Note ---
Assessment/Plan Assessment/Plan Problem List: (1) Dementia ICD Codes: F03.90 - Unspecified dementia without behavioral disturbance SNOMED: 18821687 (2) Fracture of right hip ICD Codes: S72.001A - Fracture of unspecified part of neck of right femur, initial encounter for closed fracture SNOMED: 475292727 (3) Femur fracture ICD Codes: S72.90XA - Unspecified fracture of unspecified femur, initial encounter for closed fracture SNOMED: 66881287 Qualifiers: Qualified Codes: S72.91XA - Unspecified fracture of right femur, initial encounter for closed fracture Status: progressing Assessment/Plan: s/o orif of hip reviewed chart and labs agitated psych pt placement pending Subjective Allergies: Coded Allergies: No Known Allergies (Unverified , 12/07/18) Subjective 02/21: no events noted, no f/c, no bleeding 02/22: VS stable, No complaints, DC Planning Objective Objective Last 24 Hour Vital Signs Date Time Temp Pulse Resp B/P (MAP) Pulse Ox O2 Delivery O2 Flow Rate FiO2 02/22/19 15:57 97.9 93 20 96/67 (77) 97 02/22/19 12:00 97.4 82 20 132/87 (102) 97 02/22/19 08:07 106 122/76 02/22/19 08:00 97.6 106 20 122/76 (91) 98 02/22/19 07:18 Room Air 02/22/19 04:00 97.6 80 17 117/86 (96) 99 02/22/19 00:00 98.0 91 18 143/77 (99) 97 02/21/19 21:00 Room Air 02/21/19 20:00 97.8 89 19 117/71 (86) 97 02/21/19 16:00 97.0 73 18 114/72 (86) 96 02/21/19 12:00 97.5 81 18 108/70 (83) 97 02/21/19 08:39 83 133/78 02/21/19 08:00 98.2 83 20 133/78 (96) 98 02/21/19 07:45 Room Air 02/21/19 04:00 98.3 81 18 121/75 (90) 96 02/21/19 00:00 98.1 80 18 115/72 (86) 95 Intake and Output 02/21/19 02/22/19 19:00 07:00 Intake Total 900 ml 480 ml Output Total 350 ml 800 ml Balance 550 ml -320 ml Intake Oral 900 ml 480 ml Output Urine Total 350 ml 800 ml # Voids 1 4 Labs Test 02/20/19 21:45 02/22/19 05:10 White Blood Count 7.6 K/UL (4.8-10.8) 10.4 K/UL (4.8-10.8) Red Blood Count 3.12 M/UL (4.70-6.10) 3.16 M/UL (4.70-6.10) Hemoglobin 9.3 G/DL (14.2-18.0) 9.9 G/DL (14.2-18.0) Hematocrit 28.3 % (42.0-52.0) 29.4 % (42.0-52.0) Mean Corpuscular Volume 91 FL (80-99) 93 FL (80-99) Mean Corpuscular Hemoglobin 30.0 PG (27.0-31.0) 31.2 PG (27.0-31.0) Mean Corpuscular Hemoglobin Concent 33.0 G/DL (32.0-36.0) 33.5 G/DL (32.0-36.0) Red Cell Distribution Width 12.4 % (11.6-14.8) 13.1 % (11.6-14.8) Platelet Count 400 K/UL (150-450) 411 K/UL (150-450) Mean Platelet Volume 5.1 FL (6.5-10.1) 4.9 FL (6.5-10.1) Neutrophils (%) (Auto) % (45.0-75.0) 68.5 % (45.0-75.0) Lymphocytes (%) (Auto) % (20.0-45.0) 14.8 % (20.0-45.0) Monocytes (%) (Auto) % (1.0-10.0) 10.0 % (1.0-10.0) Eosinophils (%) (Auto) % (0.0-3.0) 5.2 % (0.0-3.0) Basophils (%) (Auto) % (0.0-2.0) 1.5 % (0.0-2.0) Differential Total Cells Counted 100 Neutrophils % (Manual) 70 % (45-75) Lymphocytes % (Manual) 12 % (20-45) Monocytes % (Manual) 8 % (1-10) Eosinophils % (Manual) 10 % (0-3) Basophils % (Manual) 0 % (0-2) Band Neutrophils 0 % (0-8) Nucleated Red Blood Cells 1 /100 WBC Other Cell Type Pathologist review Platelet Estimate Adequate Platelet Morphology Normal Red Blood Cell Morphology Normal Reticulocyte Count 2.1 % (0.5-2.0) Iron Level 63 ug/dL (50-175) Total Iron Binding Capacity 253 ug/dL (250-450) Percent Iron Saturation 25 % (15-50) Unsaturated Iron Binding 190 ug/dL (112-346) Ferritin 102 NG/ML (8-388) Lactate Dehydrogenase 211 U/L (81-234) Vitamin B12 Level 423 PG/ML (193-986) Folate 24.5 NG/ML (8.6-58.9) Sodium Level 143 MMOL/L (136-145) Potassium Level 4.4 MMOL/L (3.5-5.1) Chloride Level 110 MMOL/L (98-107) Carbon Dioxide Level 22 MMOL/L (21-32) Anion Gap 11 mmol/L (5-15) Blood Urea Nitrogen 39 mg/dL (7-18) Creatinine 1.2 MG/DL (0.55-1.30) Estimat Glomerular Filtration Rate mL/min (>60) Glucose Level 95 MG/DL (74-106) Calcium Level 8.8 MG/DL (8.5-10.1) Height (Feet): 5 Height (Inches): 4.00 Weight (Pounds): 122 Objective Physical Exam: Vitals: reviewed General Appearance: NAD HEENT: normocephalic, atraumatic Neck: non-tender, normal alignment Respiratory/Chest: normal breath sounds bilaterally Cardiovascular/Chest: normal peripheral pulses, normal rate Abdomen: normal bowel sounds, soft, nontender Extremities: normal range of motion Figueroa Valdivia MD Feb 22, 2019 21:56
--- NOTE | 2019-02-23 08:43 | Discharge Summary ---
Discharge Summary Discharge Summary _ DATE OF ADMISSION: 02/13/2019 DATE OF DISCHARGE: 02/22/2019 DISCHARGED BY: Dr Prieto REASON FOR ADMISSION: 79 years old male with past medical history of hypertension, BPH, dementia, presented from the nursing home facility after fall with complaint of right hip pain. Pain reported as sharp, nonradiating, 10 out of 10 on a scale 1-10. Patient denied hitting his head or loss of consciousness. No other injuries. Upon evaluation patient was afebrile, blood pressure was elevated 152/84. Laboratory work-up revealed mild leukocytosis WBC 12.3, hemoglobin 13.5, hematocrit 39.4. Stable electrolytes. BUN 20, creatinine 1.2. Glucose 119. Stable LFT. Albumin 3.8. EKG revealed sinus rhythm, no acute ischemic changes. X-ray of the right femur revealed comminuted fracture of the proximal femoral diaphysis with approximately one half shaft width lateral displacement of the distal fragment and mild foreshortening. CT of the pelvis confirmed comminuted fracture of the proximal right femur. No pelvic bone fracture. Patient subsequently was admitted for further management. CONSULTANTS: calender roll operator Dr. Meredith GI specialist Dr. Delarosa dry kiln burner/oncologist Dr. Valdivia orthopedic surgery Dr. Leggett psychiatrist pain specialist Dr. Tapia HOSPITAL COURSE: Patient admitted to medical surgical floor. Pain management was addressed. DVT prophylaxis provided. Orthopedic surgeon seen and evaluated patient for impending surgery. Beef Grinder seen and evaluated patient for preoperative clearance. Blood pressure remained stable with calcium channel kathi. EKG was nonischemic. Patient denied prior history of myocardial infarction or congestive heart failure. Echocardiogram revealed preserved ejection fraction of 55 to 60% with mild left ventricular hypertrophy. No evidence of wall motion abnormality. Right ventricular systolic pressure of 10. Beef Grinder cleared patient from cardiac standpoint to proceed with right hip open reduction and internal fixation. Patient subsequently undergone open reduction and internal fixation of right subtrochanteric femur fracture. Postoperative hip precaution maintained. Pain management was addressed as per pain specialist recommendation. DVT prophylaxis provided. Psychiatrist followed. Psychiatric medication regimen was optimized. Patient was provided with reality orientation and supportive therapy. GI specialist followed. Bowel regimen instituted. Supportive care provided. Antiemetic provided as needed. GI prophylaxis provided. Hemoglobin and hematocrit were closely monitored with goal to keep hemoglobin above 7. Prior to discharge hemoglobin 9.9, hematocrit 29.4. Mild leukocytosis initially was likely reactive, due to hip fracture and resolved. No fever. Patient remained hemodynamically stable. Fall precaution maintained. Patient was working with physical therapist. Patient was stable for transfer back to nursing home facility for continuation of care. FINAL DIAGNOSES: Right subtrochanteric femur fracture secondary to fall Status post open reduction and internal fixation right subtrochanteric femur fracture Hypertension BPH Dementia, probably dementia with behavioral disturbances Constipation DISCHARGE MEDICATIONS: See Medication Reconciliation list. DISCHARGE INSTRUCTIONS: Patient was discharged to the nursing home facility. Follow up with medical doctor at the facility. I have been assigned to dictate discharge summary for this account. I was not involved in the patient's management. Jessica Aiken NP Feb 23, 2019 08:43
== END 2019-02-22 19:44 | DRG 308 ==
LOC: EDBD 10:31 → EMR 11:12 → 3E 12:00 → EDBEDREQ 12:38
PROC: 0QS604Z Reposition Right Upper Femur with Internal Fixation Device, Open Approach (ICD-10-PCS; principal; 2019-02-14 16:00)
DX: S72.21XA Displaced subtrochanteric fracture of right femur, initial encounter for closed fracture (principal); G93.40 Encephalopathy, unspecified; F03.91 Unspecified dementia, unspecified severity, with behavioral disturbance; W19.XXXA Unspecified fall, initial encounter; Y92.9 Unspecified place or not applicable; K59.00 Constipation, unspecified; K21.9 Gastro-esophageal reflux disease without esophagitis; N40.0 Benign prostatic hyperplasia without lower urinary tract symptoms; F41.9 Anxiety disorder, unspecified
CPT/HCPCS: 36415; 72192; 76000; 80048; 80053; 82607; 82728; 82746; 83540; 83550; 83615; 84100; 85007; 85025; 85044; 85060; 85610; 85730; 86850; 86900; 86901; 87081; 93005; 93306; 94003; 94150; 99285; J2250; J2370; J2405; J2765

== ENCOUNTER 2020-02-22 15:06 | Inpatient (IN) | payer MEDICARE, OTHER ==
[~2020-02-22] VITALS: Ht 170.2 cm; Wt 65.8 kg
[~2020-02-22 15:06] MED LIST changes: +CELEBREX200 MG ORAL; +CLONIDINE HCL0.1 MG PO; +COLACE100 MG ORAL; +MOM30 ML ORAL; +RESTORIL7.5 MG ORAL; +ZYPREXA2.5 MG ORAL
--- NOTE | 2020-02-22 15:20 | NUR ---
ED Nurse Note: Pt was brought in by AKOS[facility] from [facility] d/t elevated WBC, poor appetite and dysuria. Pt is AOx1, speaks in colombian but understands yi; pt appears to be demented, needs frequent reorientation. Pt's a FULL CODE. Placed on bed and gown; hooked to campus monitor, VSS, afebrile on triage, satting at 99% on RA. Kept room closed at all times; safety measures in placed.
[2020-02-22 15:30] VITALS: BP 102/66
--- NOTE | 2020-02-22 15:32 | Emergency Room Report ---
History of Present Illness General Chief Complaint: Abnormal Labs Source: Patient, EMS Present Illness HPI Patient sent in from [facility] with history of having an elevated white count. He denies any fevers or chills. He feels thirsty. He is also complaining about some burning when he urinates. He denies cough, sore throat, shortness of breath, chest pain, nausea, vomiting, diarrhea or constipation. He also denies abdominal pain. According to EMS they say he is not ambulatory but according to the patient he says he does walk. According to the history he has dementia. No fevers, chills, sore throat, palpitations, shortness of breath, joint pain, rashes, depression, anxiety, visual changes, dizziness, headache. 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 Patient History Limited by: medical condition Past Medical History: see triage record, old chart reviewed Past Surgical History: other - Right hip fracture Social History: Denies: smoking - Prior, alcohol use - Prior Social History Narrative Born in [place], used to clean floors -full code Nursing Documentation-PMH Hx Cardiac Problems: Yes - TIA, AV BLOCK Hx Hypertension: Yes Hx Cancer: No Hx Gastrointestinal Problems: Yes - GERD Hx Neurological Problems: Yes - DEMENTIA Hx Dementia: Yes Review of Systems All Other Systems: negative except mentioned in HPI - Somewhat questionable with history of dementia Physical Exam Vital Signs Date Time Temp Pulse Resp B/P (MAP) Pulse Ox O2 Delivery O2 Flow Rate FiO2 02/22/20 15:13 98.1 98 16 102/66 (78) 95 Room Air Sp02 EP Interpretation: reviewed, normal General Appearance: no apparent distress, alert, non-toxic, thin Head: normocephalic Eyes: bilateral eye normal inspection, bilateral eye PERRL, bilateral eye EOMI ENT: moist mucus membranes - Poor cooperation with oral exam possible rooting Neck: supple Respiratory: chest non-tender, lungs clear, normal breath sounds Cardiovascular #1: regular rate, rhythm, no edema Cardiovascular #2: 2+ radial (R) Gastrointestinal: normal inspection, normal bowel sounds, non tender, no mass, non-distended Genitourinary: no CVA tenderness, penis normal, other - Normal penis Musculoskeletal: back normal, normal range of motion Neurologic: alert, motor strength/tone normal, 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, oriented - X2, sensory intact, speech normal, other - Regressive reflexes Psychiatric: mood/affect normal - Questionable historian Skin: no rash, warm/dry Medical Decision Making Diagnostic Impression: Primary Impression: Sepsis Qualified Codes: A41.9 - Sepsis, unspecified organism; R65.20 - Severe sepsis without septic shock; N17.9 - Acute kidney failure, unspecified Additional Impressions: UTI (urinary tract infection) Qualified Codes: N39.0 - Urinary tract infection, site not specified Renal failure Qualified Codes: N17.9 - Acute kidney failure, unspecified Hypernatremia Leukocytosis Qualified Codes: D72.828 - Other elevated white blood cell count ER Course Patient presents with history of elevated white count. Differential includes sepsis, pneumonia, COVID-19, urinary tract infection amongst others. He is not vomiting and his abdomen is benign at this time. There is no evidence of skin sources. The patient will be evaluated with EKG, chest x-ray and labs including blood cultures and COVID-19. He is placed in COVID-19 isolation as he is coming from a group living situation. He is a patient is placed on a monitoring coordinator. Treatment will be with IV hydration. Depending on results of antibiotics may be started. As the patient has a history of dementia his evaluation is complex. Called 1620 - Elevated WBC. Rocephin and Levaquin ordered. EKG without injury. Chest x-ray no infiltrates. CMP with renal failure and hypernatremia. Lactic acid normal. Patient's vital signs remained stable. Patient calm and in no distress. Patient admitted to medical floor. Laboratory Tests Test 02/22/20 15:20 White Blood Count 24.6 K/UL (4.8-10.8) *H Red Blood Count 5.36 M/UL (4.70-6.10) Hemoglobin 16.5 G/DL (14.2-18.0) Hematocrit 49.0 % (42.0-52.0) Mean Corpuscular Volume 91 FL (80-99) Mean Corpuscular Hemoglobin 30.7 PG (27.0-31.0) Mean Corpuscular Hemoglobin Concent 33.6 G/DL (32.0-36.0) Red Cell Distribution Width 14.0 % (11.6-14.8) Platelet Count 236 K/UL (150-450) Mean Platelet Volume 7.2 FL (6.5-10.1) Neutrophils (%) (Auto) % (45.0-75.0) Lymphocytes (%) (Auto) % (20.0-45.0) Monocytes (%) (Auto) % (1.0-10.0) Eosinophils (%) (Auto) % (0.0-3.0) Basophils (%) (Auto) % (0.0-2.0) Differential Total Cells Counted 100 Neutrophils % (Manual) 90 % (45-75) H Lymphocytes % (Manual) 5 % (20-45) L Monocytes % (Manual) 4 % (1-10) Eosinophils % (Manual) 1 % (0-3) Basophils % (Manual) 0 % (0-2) Band Neutrophils 0 % (0-8) Platelet Estimate Adequate Platelet Morphology Normal Red Blood Cell Morphology Normal Prothrombin Time 10.7 SEC (9.30-11.50) Prothrombin Time INR 1.0 (0.9-1.1) Activated Partial Thromboplast Time 37 SEC (23-33) H Urine Color Yellow Urine Appearance Slightly cloudy Urine pH 5 (4.5-8.0) Urine Specific [place] 1.020 (1.005-1.035) Urine Protein 3+ (NEGATIVE) H Urine Glucose (UA) Negative (NEGATIVE) Urine Ketones 1+ (NEGATIVE) H Urine Blood 4+ (NEGATIVE) H Urine Nitrite Negative (NEGATIVE) Urine Bilirubin Negative (NEGATIVE) Urine Urobilinogen 4 MG/DL (0.0-1.0) H Urine Leukocyte Esterase 3+ (NEGATIVE) H Urine RBC 5-10 /HPF (0 - 0) H Urine WBC Tntc /HPF (0 - 0) H Urine Squamous Epithelial Cells Few /LPF (NONE/OCC) Urine Bacteria Many /HPF (NONE) H Sodium Level 149 MMOL/L (136-145) H Potassium Level 4.5 MMOL/L (3.5-5.1) Chloride Level 111 MMOL/L (98-107) H Carbon Dioxide Level 23 MMOL/L (21-32) Blood Urea Nitrogen 67 mg/dL (7-18) H Creatinine 2.5 MG/DL (0.55-1.30) H Estimated Glomerular Filtration Rate 24.8 mL/min (>60) Glucose Level 155 MG/DL (74-106) H Lactic Acid Level 1.60 mmol/L (0.4-2.0) Calcium Level 8.5 MG/DL (8.5-10.1) Magnesium Level 2.7 MG/DL (1.8-2.4) H Total Bilirubin 0.9 MG/DL (0.2-1.0) Aspartate Amino Transferase (AST) 43 U/L (15-37) H Alanine Aminotransferase (ALT) 35 U/L (12-78) Alkaline Phosphatase 122 U/L (46-116) H Total Creatine Kinase 248 U/L (26-308) Troponin I 0.004 ng/mL (0.000-0.056) Pro-B-Type Natriuretic Peptide 1832 pg/mL (0-125) H Total Protein 7.8 G/DL (6.4-8.2) Albumin 2.2 G/DL (3.4-5.0) L Globulin 5.6 g/dL Albumin/Globulin Ratio 0.4 (1.0-2.7) L Lipase 115 U/L (73-393) EKG Diagnostic Results Rate: normal Rhythm: NSR ST Segments: no acute changes Rhythm Strip Diag. Results EP Interpretation: yes Rhythm: NSR, no PVC's, no ectopy Chest X-Ray Diagnostic Results Chest X-Ray Diagnostic Results : Chest X-Ray Ordered: Yes # of Views/Limited/Complete: 1 View Indication: Other EP Interpretation: Yes Interpretation: no consolidation, no effusion, no pneumothorax Impression: No acute disease Last Vital Signs Date Time Temp Pulse Resp B/P (MAP) Pulse Ox O2 Delivery O2 Flow Rate FiO2 02/22/20 23:40 96.9 89 18 122/85 (97) 97 02/22/20 22:55 Room Air Status: improved Disposition: ADMITTED INPATIENT Condition: Serious Oneil Crabtree MD Feb 22, 2020 15:32
--- NOTE | 2020-02-22 15:36 | NUR ---
ED Nurse Note: x-ray techs at bedside.
[2020-02-22] MEDS ORDERED: CRANBERRY450 M4 PO (15:39)
[2020-02-22] MEDS ORDERED: VITAMIN C500 M1 ORAL (15:39)
[2020-02-22] MEDS ORDERED: DULCOLAX10 MG RC (15:39)
[2020-02-22 16:15] LABS: HEMOGLOBIN 16.5 G/DL (14.2-18.0); MEAN CORPUSCULAR VOLUME 91 FL (80-99); PLATELET COUNT 236 K/UL (150-450); RED BLOOD COUNT 5.36 M/UL (4.70-6.10)
[2020-02-22 16:19] LABS: WHITE BLOOD COUNT 24.6 K/UL (4.8-10.8)
[2020-02-22 16:26] LABS: APPEARANCE,URINE SLIGHTLY CLOUDY; BILIRUBIN, URINE NEGATIVE (NEGATIVE); COLOR,URINE YELLOW; GLUCOSE, URINE (UA) NEGATIVE (NEGATIVE); KETONES,URINE 1+ (NEGATIVE); LEUKOCYTE ESTERASE ,URINE 3+ (NEGATIVE); NITRITE,URINE NEGATIVE (NEGATIVE); PH,URINE 5 (4.5-8.0); PROTEIN,URINE 3+ (NEGATIVE); UROBILINOGEN,URINE 4 MG/DL (0.0-1.0)
[2020-02-22] MEDS ORDERED: cefTRIAXone 1 GM in NS 55 ML IVPB ONE (16:30)
[2020-02-22 16:34] LABS: ALANINE AMINOTRANSFERASE 35 U/L (12-78); ALBUMIN 2.2 G/DL (3.4-5.0); ALBUMIN/GLOBULIN RATIO 0.4 (1.0-2.7); ALKALINE PHOSPHATASE 122 U/L (46-116); ASPARTATE AMINO TRANSFERASE 43 U/L (15-37); BILIRUBIN,TOTAL 0.9 MG/DL (0.2-1.0); BLOOD UREA NITROGEN 67 mg/dL (7-18); CALCIUM 8.5 MG/DL (8.5-10.1); CARBON DIOXIDE 23 MMOL/L (21-32); CHLORIDE 111 MMOL/L (98-107); CREATINE KINASE 248 U/L (26-308); CREATININE 2.5 MG/DL (0.55-1.30); POTASSIUM 4.5 MMOL/L (3.5-5.1); SODIUM 149 MMOL/L (136-145)
--- NOTE | 2020-02-22 16:43 | Diagnostic Imaging Report ---
Indication: Chest pain Technique: One view of the chest Comparison: 01/25/2019 Findings: Lungs pleural spaces are clear. The heart size is normal. The aorta is tortuous ectatic and calcified. No significant interim change Impression: No acute process
[2020-02-22 17:24] VITALS: BP 122/69
--- NOTE | 2020-02-22 19:00 | NUR ---
ED Nurse Note: Report given to DUARTE Rodríguez in [address] [place] [address] for continuity of care.
--- NOTE | 2020-02-22 19:15 | NUR ---
ED Nurse Note: Recieved report to resume care, pt in bed wke and alert, pt is under Covid precautions on isoltion, on cardiac monitoring, IV site patent, pt has room for admission, will collect swabs and send to floor bed for admit.
[2020-02-22 19:45] VITALS: BP 127/75
--- NOTE | 2020-02-22 20:10 | NUR ---
ED Nurse Note: Pt being taken to floor bed for admit via gurney under Covid pecautions with ER-Tech, nad noted during transport, IV site patent, belongings completed, swabs collected, report called.
--- NOTE | 2020-02-22 20:45 | NUR ---
NURSE NOTES: Admitted is a 80 year old male pt. Awake, with evident confusion. Vitals checked. Placed on contact isolation for droplet and airborne. No sob noted, no cough, no fever. oriented to room and hospital policies but unable to comprehend. Bed placed in lowest position and locked. Orders verified with Dr. Prieto and carried out. No skin breakdown, able to turn and reposition with assist. Kept clean and dry.
[2020-02-22] MEDS ORDERED: Acetaminophen 500mg (ES) tab ORAL PRN (22:30)
--- NOTE | 2020-02-22 23:29 | History and Physical Report ---
DATE OF ADMISSION: 02/22/2020 HISTORY OF PRESENT ILLNESS: I saw the patient in the emergency room. Patient is being admitted for sepsis, UTI. Patient had altered mental status, weakness at the [facility]. Patient basically had poor p.o. intake and also has leukocytosis and positive urine culture from the [facility]. He is being admitted for symptomatic UTI and altered mental status, poor intake, rule out COVID. Patient is a poor historian, cannot get any reliable history from the patient. PAST MEDICAL HISTORY: Organic brain syndrome, constipation, BPH, psychosis, hip fracture, history of CVA, GERD, dementia. PAST SURGICAL HISTORY: Denies. ALLERGIES: Poor historian. No known allergies. FAMILY HISTORY: Noncontributory. MEDICATIONS: Bisacodyl, vitamin C, amlodipine, Proscar, olanzapine, and Flomax. Patient also has leukocytosis. Denies cough or shortness of breath, but is relatively poor historian. REVIEW OF SYSTEMS: CONSTITUTIONAL: No fever or chills. HEENT: Denies headaches. PULMONARY: Denies shortness of breath. Denies cough. GASTROINTESTINAL: Denies nausea, vomiting, or diarrhea. PHYSICAL EXAMINATION: VITAL SIGNS: Temperature is 98.1, pulse 98, blood pressure is 102/66. HEENT: PERRLA. CHEST: Clear to auscultation. CARDIOVASCULAR: Regular rate and rhythm. No murmurs or extra sounds. GASTROINTESTINAL: Soft, nontender, nondistended. No organomegaly. EXTREMITIES: No edema. He is able to move his extremities. NEUROLOGIC: Has generalized weakness. LABORATORY DATA: WBC of 24.6, hemoglobin 16.5, platelets 236. Sodium 149, potassium 4.5, BUN of 67, creatinine 2.5, glucose of 155. ASSESSMENT AND PLAN: Acute renal failure, most likely due to poor p.o. intake, dehydration, UTI, rule out sepsis. I have admitted for those reasons. I have consulted Dr. Helms and Dr. Chito Murrell to help with the management of dehydration with IV fluids as well as with IV antibiotics. Guido Prieto M.D. DR: PHILIPP JOB#: [id number] CC:
[2020-02-22 23:40] VITALS: BP 122/85
[2020-02-23 04:00] VITALS: BP 116/74
--- NOTE | 2020-02-23 07:38 | NUR ---
NURSE NOTES: Received report from DUARTE Woodwadr. Patient is awake, maori speaking, AAOx1 to self, and on room air. IV site patent and intact. No signs of acute distress noted at this time. structural iron worker nurse endorsed Urine culture sample needed. Patient is incontinent and resistant to care regarding collection of urine. Pulling out condom cath, urinal declined. Isolation precaution maintained. Bed is locked and placed in lowest position with bed locked. Call light within reach. Will continue to monitor
[2020-02-23 07:47] LABS: HEMATOCRIT 41.6 % (42.0-52.0); HEMOGLOBIN 13.3 G/DL (14.2-18.0); MEAN CORPUSCULAR VOLUME 93 FL (80-99); PLATELET COUNT 212 K/UL (150-450); RED BLOOD COUNT 4.45 M/UL (4.70-6.10); RED CELL DISTRIBUTION WIDTH 13.9 % (11.6-14.8); WHITE BLOOD COUNT 18.7 K/UL (4.8-10.8)
[2020-02-23 08:00] VITALS: BP 125/74
[2020-02-23 08:11] LABS: ALANINE AMINOTRANSFERASE 36 U/L (12-78); ALBUMIN 1.7 G/DL (3.4-5.0); ALBUMIN/GLOBULIN RATIO 0.4 (1.0-2.7); ALKALINE PHOSPHATASE 107 U/L (46-116); ANION GAP 12 mmol/L (5-15); ASPARTATE AMINO TRANSFERASE 39 U/L (15-37); BILIRUBIN,TOTAL 0.8 MG/DL (0.2-1.0); BLOOD UREA NITROGEN 64 mg/dL (7-18); CALCIUM 7.7 MG/DL (8.5-10.1); CARBON DIOXIDE 21 MMOL/L (21-32); CHLORIDE 115 MMOL/L (98-107); CHOLESTEROL 96 MG/DL (< 200); CREATININE 2.2 MG/DL (0.55-1.30); FERRITIN 276 NG/ML (8-388); GAMMA GLUTAMYL TRANSPEPTIDASE 14 U/L (5-85); HDL CHOLESTEROL 9 MG/DL (40-60); LACTATE DEHYDROGENASE 212 U/L (81-234); PHOSPHORUS 4.1 MG/DL (2.5-4.9); POTASSIUM 3.9 MMOL/L (3.5-5.1); SODIUM 148 MMOL/L (136-145); TRIGLYCERIDES 176 MG/DL (30-150)
[2020-02-23] MEDS: Meropenem 500 MG in NS 55 ML IVPB SCH ×2 (08:54→20:37)
[2020-02-23 12:00] VITALS: BP 120/74
--- NOTE | 2020-02-23 12:51 | NUR ---
CASE MANAGEMENT:INITIAL REVIEW 80 YR OLD MALE BIBA FROM [facility] CC;ABNORMAL LABS SI;COVID-19 RULE OUT. SEPSIS. 98.1 98 24 102/66 95% ON RA WBC 24.6 NA 149 BUN 67 CR 2.5 BG 155 MAG 2..7 AST 43 ALB 2.2 APTT 37 UA+ PROTEIN, KETONES, BLOOD, LE, RBC, WBC, BACTERIA COVID-19 ~ NOT DETECTED CXR ~ NO ACUTE PROCESS IS;IVF NS BOLUS LEVAQUIN IV ROCEPHIN IV ADMITTED TO MED SURG MED SURG STATUS DCP;PATIENT IS FROM [facility] CONV
[2020-02-23] MEDS ORDERED: LORazepam Inj 2mg/ml 1ml IVP SCH (13:00)
--- NOTE | 2020-02-23 13:30 | Consultation ---
Consult Note Consult Note I am asked to evaluate the patient at the request of Dr. Prieto for renal failure Patient seen in room 401 Examined Data reviewed Emergency room note: Patient sent in from [facility] with history of having an elevated white count. He denies any fevers or chills. He feels thirsty. He is also complaining about some burning when he urinates. He denies cough, sore throat, shortness of breath, chest pain, nausea, vomiting, diarrhea or constipation. He also denies abdominal pain. According to EMS they say he is not ambulatory but according to the patient he says he does walk. According to the history he has dementia. No fevers, chills, sore throat, palpitations, shortness of breath, joint pain, rashes, depression, anxiety, visual changes, dizziness, headache. 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 GENERAL APPEARANCE: Seems to be well developed. HEAD AND NECK: [place] conjunctiva. HEART: Normal rate. LUNGS: Clear. ABDOMEN: Soft and nontender. EXTREMITIES: No edema. NEUROLOGIC: Awake and responsive, seems disoriented. Assessment/Plan Acute on chronic renal failure Dehydration, hypernatremia Sepsis, leukocytosis UTI Slow hydration Avoid nephrotoxic's Monitor renal parameters Keep the blood pressure and blood sugar in check Per orders Remington Helms MD Feb 23, 2020 13:30
--- NOTE | 2020-02-23 14:26 | NUR ---
*-* INSURANCE *-* ALL AVAILABLE CLINICALS HAVE BEEN FAXED TO: [facility]#[id number] P:[phone] F:[phone]
[2020-02-23 16:00] VITALS: BP 125/70
[2020-02-23] MEDS: Docusate 100mg cap ORAL SCH (17:27)
--- NOTE | 2020-02-23 19:22 | NUR ---
HAND-OFF: Report given to DUARTE Estrada.
--- NOTE | 2020-02-23 19:23 | NUR ---
NURSE NOTES: Report received from Kaden RAMACHANDRAN. Patient is awake and alert x 1. Patient does not appear to be in respiratory distress at this time breathing on room air. Patient is noted to have negative covid 19 test on February 22, 2020. Patient was removed from precautions per Doctor Murrell. Was endorsed to Abel RAMACHANDRAN that patient is NPO due to scheduled ultra sound of abdomen tomorrow. Patient noted to have left and right forearm IV access, both 22 jakob. Patient currently has fluids running through left forearm IV access per MD orders. Bed locked, in lowest position, and alarmed. Will continue to follow plan of care.
[2020-02-23 20:00] VITALS: BP 152/83
[2020-02-23] MEDS: Tamsulosin 0.4mg cap ORAL SCH (20:37)
[2020-02-23] MEDS ORDERED: Tamsulosin 0.4mg cap ORAL SCH (21:00)
--- NOTE | 2020-02-23 21:00 | Consultation ---
DATE OF CONSULTATION: 02/23/2020 INFECTIOUS DISEASES CONSULTATION CONSULTING PHYSICIAN: Chito Murrell MD. REASON FOR CONSULTATION: Gram-negative sepsis, UTI. HISTORY OF PRESENT ILLNESS: This is an 80-year-old male admitted from a nursing facility because of abnormal labs. He had leukocytosis, at the time of admission had a WBC count of 24.6, had dysuria. The patient is poor historian. PAST MEDICAL HISTORY: Significant for BPH, hypertension, dementia, constipation, AV block, right hip open reduction internal fixation. ALLERGIES: No known drug allergies. MEDICATIONS: Getting Protonix, Flomax, Colace, meropenem, get a dose of ceftriaxone in the ER. SOCIAL HISTORY: . long-term resident. REVIEW OF SYSTEMS: He has headache, some hiccups. PHYSICAL EXAMINATION: VITAL SIGNS: Temperature 97.1, pulse 93, blood pressure 120/74. GENERAL APPEARANCE: Seems to be well developed. HEAD AND NECK: [place] conjunctiva. HEART: Normal rate. LUNGS: Clear. ABDOMEN: Soft and nontender. EXTREMITIES: No edema. NEUROLOGIC: Awake and responsive, seems disoriented. LABORATORY DATA: WBC today is 18.7, hemoglobin 13.3, hematocrit 41.6, and platelets 212. Sodium 148, potassium 3.9, chloride 115, bicarb 21, BUN 64, creatinine 2.2, glucose 126. Uric acid is 9.6. BNP elevated 1313. Urine culture growing gram-negative. Blood culture x2 are negative. COVID-19 test was negative. UA showed wbc's too numerous to count, nitrite negative, leukocyte esterase 2+. IMPRESSION: 1. Gram-negative sepsis. 2. Gram-negative UTI. 3. Renal failure, seems to be acute. 4. Dementia. 5. Hypertension. 6. BPH. RECOMMENDATION: Continue meropenem. We will follow up the blood culture and urine culture. We will order abdominal ultrasound to rule out hydronephrosis and obstruction. At the end of my exam, I thank Dr. Prieto, for involving me in the care of this patient. We will stop COVID-19 isolation. Chito Murrell M.D. : Kevan JOB#: [id number] CC:
--- NOTE | 2020-02-23 21:29 | General Progress Note ---
Assessment/Plan Problem List: (1) Dementia ICD Codes: F03.90 - Unspecified dementia without behavioral disturbance SNOMED: 88228960 (2) Altered mental status ICD Codes: R41.82 - Altered mental status, unspecified SNOMED: 386098516 (3) Elevated WBC count ICD Codes: D72.829 - Elevated white blood cell count, unspecified SNOMED: 892661373, 348330835 (4) Leukocytosis ICD Codes: D72.829 - Elevated white blood cell count, unspecified SNOMED: 064823386, 315288942 Qualifiers: Qualified Codes: D72.828 - Other elevated white blood cell count (5) Renal failure ICD Codes: N19 - Unspecified kidney failure SNOMED: 70656888 Qualifiers: Qualified Codes: N17.9 - Acute kidney failure, unspecified (6) Sepsis ICD Codes: A41.9 - Sepsis, unspecified organism SNOMED: 96772190 Qualifiers: Qualified Codes: A41.9 - Sepsis, unspecified organism; R65.20 - Severe sepsis without septic shock; N17.9 - Acute kidney failure, unspecified (7) UTI (urinary tract infection) ICD Codes: N39.0 - Urinary tract infection, site not specified SNOMED: 08594640 Qualifiers: Qualified Codes: N39.0 - Urinary tract infection, site not specified Status: progressing Assessment/Plan: afebrile sepsis uti leukocytosis is improving agitated Subjective ROS Limited/Unobtainable: Yes Allergies: Coded Allergies: No Known Allergies (Unverified , 12/07/18) Objective Last 24 Hour Vital Signs Date Time Temp Pulse Resp B/P (MAP) Pulse Ox O2 Delivery O2 Flow Rate FiO2 02/23/20 16:00 97.5 93 18 125/70 (88) 96 02/23/20 12:00 97.1 93 19 120/74 (89) 95 02/23/20 09:00 Room Air 02/23/20 08:00 98.1 95 20 125/74 (91) 95 02/23/20 04:00 98.4 83 19 116/74 (88) 97 02/22/20 23:40 96.9 89 18 122/85 (97) 97 02/22/20 22:55 Room Air Intake and Output 7/1/20 7/2/20 19:00 07:00 Intake Total 1000 ml 100 ml Balance 1000 ml 100 ml Intake Oral 100 ml IV Total 1000 ml # Voids 4 # Bowel Movements 1 Laboratory Tests 02/23/20 07:10: White Blood Count 18.7H, Red Blood Count 4.45L, Hemoglobin 13.3L, Hematocrit 41.6L, Mean Corpuscular Volume 93, Mean Corpuscular Hemoglobin 29.9, Mean Corpuscular Hemoglobin Concent 32.0, Red Cell Distribution Width 13.9, Platelet Count 212, Mean Platelet Volume 6.8, Neutrophils (%) (Auto) , Lymphocytes (%) ( Auto) , Monocytes (%) (Auto) , Eosinophils (%) (Auto) , Basophils (%) (Auto) , Differential Total Cells Counted 100, Neutrophils % (Manual) 84H, Lymphocytes % (Manual) 9L, Monocytes % (Manual) 7, Eosinophils % (Manual) 0, Basophils % ( Manual) 0, Band Neutrophils 0, Platelet Estimate Adequate, Platelet Morphology Normal, Red Blood Cell Morphology Normal, Sodium Level 148H, Potassium Level 3.9 , Chloride Level 115H, Carbon Dioxide Level 21, Anion Gap 12, Blood Urea Nitrogen 64H, Creatinine 2.2H, Estimat Glomerular Filtration Rate 28.8, Glucose Level 126H, Hemoglobin A1c 5.9, Uric Acid 9.4H, Calcium Level 7.7L, Phosphorus Level 4.1, Magnesium Level 2.7H, Ferritin 276, Total Bilirubin 0.8, Gamma Glutamyl Transpeptidase 14, Aspartate Amino Transf (AST/SGOT) 39H, Alanine Aminotransferase (ALT/SGPT) 36, Alkaline Phosphatase 107, Lactate Dehydrogenase 212, C-Reactive Protein, Quantitative 47.5H, Pro-B-Type Natriuretic Peptide 1313H, Total Protein 6.5, Albumin 1.7L, Globulin 4.8, Albumin/Globulin Ratio 0.4L, Triglycerides Level 176H, Cholesterol Level 96, LDL Cholesterol 39, HDL Cholesterol 9L, Cholesterol/HDL Ratio 10.7H, Thyroid Stimulating Hormone (TSH) 0.276L 02/23/20 14:10: Urine Random Sodium < 20L Height (Feet): 5 Height (Inches): 7.00 Weight (Pounds): 145 Guido Prieto MD Feb 23, 2020 21:29
--- NOTE | 2020-02-23 23:47 | Initial Psychiatric Evaluation ---
Psychiatry Consultation Psychiatry Consultation Chief Complaint: Abnormal Labs History of Present Illness: 80-year-old male with mmp who was admitted for abnormal labs. The patient is confused and is unable to provide meaningful hx the pt is agitated and uncooperative. no si/hi Allergies: Coded Allergies: No Known Allergies (Unverified , 12/07/18) Medical History: BPH, hypertension, dementia, constipation, AV block, right hip open reduction internal fixation. Medication History Discontinued Medications Acetaminophen* (Acetaminophen 325MG Tablet*), 650 MG ORAL Q6H PRN for temp above 101, (Reported) Discontinued Reason: MD discontinued med Amlodipine Besylate* (Amlodipine Besylate*), 5 MG ORAL DAILY, (Reported) Discontinued Reason: MD discontinued med Ascorbic Acid* (Vitamin C*), 500 MG ORAL DAILY, (Reported) Discontinued Reason: MD discontinued med Bisacodyl (Dulcolax), 10 MG RC, (Reported) Discontinued Reason: MD discontinued med Celecoxib* (Celebrex*), 200 MG ORAL DAILY, (Reported) Discontinued Reason: Pt stopped taking med Clonidine Hcl (Clonidine Hcl), 0.1 MG PO Q4HR PRN for SBP>170 mmHg, (Reported) Discontinued Reason: Pt stopped taking med Cranberry Fruit Concentrate (Cranberry), 450 MG PO, (Reported) Discontinued Reason: MD discontinued med Docusate Sodium* (Colace*), 100 MG ORAL THREE TIMES A DAY, (Reported) Discontinued Reason: MD discontinued med Finasteride* (Proscar*), 5 MG ORAL DAILY, (Reported) Discontinued Reason: MD discontinued med Magnesium Hydroxide (Milk of Magnesia), 30 ML ORAL DAILY PRN for Constipation, ( Reported) Discontinued Reason: MD discontinued med Olanzapine* (Zyprexa*), 2.5 MG ORAL Q6HR PRN for Agitation, (Reported) Discontinued Reason: Pt stopped taking med Polyethylene Glycol 3350* (Miralax*), 17 GM ORAL DAILY, (Reported) Discontinued Reason: Pt stopped taking med Tamsulosin HCl (Flomax), 0.4 MG ORAL BEDTIME, (Reported) Discontinued Reason: MD discontinued med Temazepam* (Restoril*), 7.5 MG ORAL DAILY PRN for Insomnia, (Reported) Discontinued Reason: Pt stopped taking med Patient History Limited by: medical condition Objective Data Height (Feet): 5 Height (Inches): 7.00 Weight (Pounds): 145 Appearance: disheveled Behavior Mannerisms: poor eye contact Affect: blunted Mood: anxious, agitated Thought Process: tangential, confusion Perceptual Disturbances: hallucinations Suicidal Ideation: not present Assessment/Plan Problem List: (1) Dementia with behavioral disturbance ICD Codes: F03.91 - Unspecified dementia with behavioral disturbance SNOMED: 2571901499184 Assessment/Plan: restraints to draw labs the pt lacks capacity to make decisions ativan prior to labs Liz Casey MD Feb 23, 2020 23:47
[2020-02-24] VITALS: BP 143/78
[2020-02-24 04:00] VITALS: BP 148/90
--- NOTE | 2020-02-24 07:17 | NUR ---
NURSE NOTES: received report from DUARTE Alexandre. patient in bed, alert. disoriented. verbally responsive. no respiratory distress noted on room air. no pain at this time. IV on right wrist intact. condom cath draining. contact isolation mrsa urine. bed in the lowest position and locked. call light within reach. will continue to provide plan of care. Addendum: 02/24/20 at 0720 by BRAD NEVES RN wrong patient
--- NOTE | 2020-02-24 07:36 | Diagnostic Imaging Report ---
EXAM: US Abdomen Complete CLINICAL HISTORY: INFECT TECHNIQUE: Real-time ultrasound of the abdomen with image documentation. COMPARISON: No relevant prior studies available. FINDINGS: Liver: Cystic structure adjacent to the right hepatic lobe measuring 1.7 x 0.8 cm. This may represent a small right hepatic lobe cyst. 6 month follow recommended. Gallbladder: There is no cholelithiasis. The common bile duct measures 5 mm. Pancreas: The pancreas is grossly within normal limits. Right Kidney: The right kidney measures 11.3 cm. There is no dilation of the collecting system. Echogenic focus in the right htq-eu-ehdef pole measuring 7 x 4 mm, which may represent a nonobstructing calculus. Right upper pole renal cyst measuring 1.8 x 1.9 cm. Left Kidney: The left kidney measures 8.5. There is no dilation of the collecting system. Large left midpole renal cyst measuring 7.7 x 5.8 cm. Left upper pole renal cyst measuring 2.6 x 2.3 standard. Spleen: The spleen measures 9.1 cm. Abdominal Aorta and IVC: The aortic bifurcation is not well visualized due to bowel gas. IMPRESSION: Echogenic focus in the right neq-jw-tjbgx pole measuring 7 x 4 mm, which may represent a nonobstructing calculus. Bilateral renal cysts, measuring up to 7.7 x 5.8 cm on left. Cystic structure adjacent to the right hepatic lobe measuring 1.7 x 0.8 cm. This may represent a small right hepatic lobe cyst. 6 month follow recommended to reassess.
--- NOTE | 2020-02-24 07:38 | NUR ---
HAND-OFF: Report given to Cristian RAMACHANDRAN. Endorsed that patient was NPO due to abdominal ultrasound. Endorsed that patient can be combative and to bring another staff member when preforming care. Patient currently in stable condition.
--- NOTE | 2020-02-24 07:56 | NUR ---
NURSE NOTES: received report from DUARTE Roman. patient in bed. sleeping. no respiratory distress noted. no facial grimacing noted. IV on LFA, RFA intact. running d51/2ns@75. NPO for US abd. bed in the lowest position and locked. call light within reach. will continue to provide plan of care.
[2020-02-24 08:00] VITALS: BP 122/67
[2020-02-24 08:15] LABS: HEMATOCRIT 37.6 % (42.0-52.0); HEMOGLOBIN 12.1 G/DL (14.2-18.0); MEAN CORPUSCULAR VOLUME 94 FL (80-99); PLATELET COUNT 195 K/UL (150-450); RED BLOOD COUNT 4.02 M/UL (4.70-6.10); RED CELL DISTRIBUTION WIDTH 14.3 % (11.6-14.8); WHITE BLOOD COUNT 12.7 K/UL (4.8-10.8)
[2020-02-24 08:41] LABS: ALANINE AMINOTRANSFERASE 71 U/L (12-78); ALBUMIN 1.6 G/DL (3.4-5.0); ALBUMIN/GLOBULIN RATIO 0.4 (1.0-2.7); ALKALINE PHOSPHATASE 99 U/L (46-116); ANION GAP 12 mmol/L (5-15); ASPARTATE AMINO TRANSFERASE 96 U/L (15-37); BILIRUBIN,TOTAL 0.8 MG/DL (0.2-1.0); BLOOD UREA NITROGEN 57 mg/dL (7-18); CALCIUM 7.7 MG/DL (8.5-10.1); CARBON DIOXIDE 20 MMOL/L (21-32); CHLORIDE 115 MMOL/L (98-107); CREATININE 1.7 MG/DL (0.55-1.30); PHOSPHORUS 3.1 MG/DL (2.5-4.9); POTASSIUM 3.4 MMOL/L (3.5-5.1); SODIUM 147 MMOL/L (136-145)
[2020-02-24] MEDS: Docusate 100mg cap ORAL SCH ×4 (09:00→17:05)
[2020-02-24] MEDS: Meropenem 500 MG in NS 55 ML IVPB SCH ×2 (09:18→20:42)
--- NOTE | 2020-02-24 09:24 | NUR ---
NURSE NOTES: patient refused taking colace for BM and protonix for GI PPX . explained risk and benefit.
--- NOTE | 2020-02-24 09:38 | NUR ---
CASE MANAGEMENT:REVIEW 02/24/20 SI: SEPSIS 98.1 85 18 122/67 93% ON RA WBC+12.7 H/H-12.1/37.6 K-3.4 BUN+57 CR+1.7 IS: IV MEROPENEM Q12 IVF@75/HR PROTONIX PO QD FLOMAX PO QHS : MED/SURG STATUS 4 EAST DCP: FROM [facility] CONV PLAN: ABD US RENAL DIET
--- NOTE | 2020-02-24 10:06 | NUR ---
*-* INSURANCE *-* UPDATED CLINICALS AND REVIEWS HAVE BEEN FAXED TO: [employer] AUTH#[id number] P:[phone] F:[phone]
--- NOTE | 2020-02-24 10:45 | Infectious Diseases Prog Note ---
Assessment/Plan Assessment/Plan IMPRESSION: 1. Gram-negative sepsis. 2. Gram-negative UTI. 3. Renal failure, seems to be acute. 4. Dementia. 5. Hypertension. 6. BPH. 7. R nephrolithiasis RECOMMENDATION: Continue meropenem. We will follow up the blood culture and urine culture. Subjective ROS Limited/Unobtainable: Yes Constitutional: Denies: fever Allergies: Coded Allergies: No Known Allergies (Unverified , 12/07/18) Objective Last 24 Hour Vital Signs Date Time Temp Pulse Resp B/P (MAP) Pulse Ox O2 Delivery O2 Flow Rate FiO2 02/24/20 09:00 Room Air 02/24/20 08:00 98.1 85 18 122/67 (85) 93 02/24/20 04:00 98.2 84 19 148/90 (109) 99 02/24/20 00:00 97.3 88 20 143/78 (99) 95 02/23/20 21:00 Room Air 02/23/20 20:00 97.8 91 20 152/83 (106) 97 02/23/20 16:00 97.5 93 18 125/70 (88) 96 02/23/20 12:00 97.1 93 19 120/74 (89) 95 Height (Feet): 5 Height (Inches): 7.00 Weight (Pounds): 145 General Appearance: no acute distress HEENT: mucous membranes moist Respiratory/Chest: lungs clear Cardiovascular: normal rate Abdomen: soft, non tender Extremities: no edema Skin: no lesions Neurologic/Psychiatric: other - sleeping Microbiology Date/Time Source Procedure Growth Status 02/22/20 15:50 Blood Blood Culture - Preliminary Gram Negative Francisco Javier Resulted 02/22/20 15:20 Blood Blood Culture - Preliminary Gram Negative Francisco Javier Resulted 02/22/20 15:20 Nasopharynx Coronavirus COVID-19 PCR ([facility]) - Final Complete 02/22/20 15:20 Urine,Clean Catch Urine Culture - Preliminary Gram Negative Francisco Javier Resulted 02/22/20 20:10 Rectum Received Laboratory Tests Test 02/23/20 14:10 02/24/20 07:50 Urine Random Sodium < 20 mmol/L (20-110) L White Blood Count 12.7 K/UL (4.8-10.8) H Red Blood Count 4.02 M/UL (4.70-6.10) L Hemoglobin 12.1 G/DL (14.2-18.0) L Hematocrit 37.6 % (42.0-52.0) L Mean Corpuscular Volume 94 FL (80-99) Mean Corpuscular Hemoglobin 30.0 PG (27.0-31.0) Mean Corpuscular Hemoglobin Concent 32.0 G/DL (32.0-36.0) Red Cell Distribution Width 14.3 % (11.6-14.8) Platelet Count 195 K/UL (150-450) Mean Platelet Volume 7.4 FL (6.5-10.1) Neutrophils (%) (Auto) % (45.0-75.0) Lymphocytes (%) (Auto) % (20.0-45.0) Monocytes (%) (Auto) % (1.0-10.0) Eosinophils (%) (Auto) % (0.0-3.0) Basophils (%) (Auto) % (0.0-2.0) Differential Total Cells Counted 100 Neutrophils % (Manual) 85 % (45-75) H Lymphocytes % (Manual) 8 % (20-45) L Monocytes % (Manual) 5 % (1-10) Eosinophils % (Manual) 2 % (0-3) Basophils % (Manual) 0 % (0-2) Band Neutrophils 0 % (0-8) Platelet Estimate Adequate Platelet Morphology Normal Red Blood Cell Morphology Normal Sodium Level 147 MMOL/L (136-145) H Potassium Level 3.4 MMOL/L (3.5-5.1) L Chloride Level 115 MMOL/L (98-107) H Carbon Dioxide Level 20 MMOL/L (21-32) L Anion Gap 12 mmol/L (5-15) Blood Urea Nitrogen 57 mg/dL (7-18) H Creatinine 1.7 MG/DL (0.55-1.30) H Estimat Glomerular Filtration Rate 38.8 mL/min (>60) Glucose Level 106 MG/DL (74-106) Uric Acid 9.1 MG/DL (2.6-7.2) H Calcium Level 7.7 MG/DL (8.5-10.1) L Phosphorus Level 3.1 MG/DL (2.5-4.9) Magnesium Level 2.7 MG/DL (1.8-2.4) H Total Bilirubin 0.8 MG/DL (0.2-1.0) Aspartate Amino Transf (AST/SGOT) 96 U/L (15-37) H Alanine Aminotransferase (ALT/SGPT) 71 U/L (12-78) Alkaline Phosphatase 99 U/L (46-116) C-Reactive Protein, Quantitative 35.0 mg/dL (0.00-0.90) H Pro-B-Type Natriuretic Peptide 1696 pg/mL (0-125) H Total Protein 6.0 G/DL (6.4-8.2) L Albumin 1.6 G/DL (3.4-5.0) L Globulin 4.4 g/dL Albumin/Globulin Ratio 0.4 (1.0-2.7) L Current Medications Medications (Trade) Dose Ordered Sig/Phong Route PRN Reason Start Time Stop Time Status Last Admin Dose Admin Acetaminophen (Tylenol) 500 mg Q4H PRN ORAL Mild Pain (Pain Scale 1-3) 02/22/20 22:30 03/23/20 22:29 Docusate Sodium (Colace) 100 mg THREE TIMES A DAY ORAL 02/23/20 18:00 03/24/20 17:59 02/23/20 17:27 Meropenem 500 mg/ Sodium Chloride 55 ml @ 110 mls/hr Q12H IVPB 02/23/20 09:00 02/28/20 08:59 02/24/20 09:18 Pantoprazole (Protonix) 40 mg EVERY 12 HOURS ORAL 02/23/20 21:00 03/24/20 20:59 02/23/20 20:37 Potassium Chloride (K-Dur) 40 meq DAILY ORAL 02/24/20 10:30 05/24/20 10:29 Sodium Chloride 1,000 ml @ 75 mls/hr [id number] IV 02/22/20 21:15 03/23/20 21:14 02/23/20 23:42 Tamsulosin HCl (Flomax) 0.4 mg BEDTIME ORAL 02/23/20 21:00 03/24/20 20:59 02/23/20 20:37 Chito Murrell MD Feb 24, 2020 10:45
--- NOTE | 2020-02-24 11:27 | Nephrology Progress Note ---
Assessment/Plan Problem List: (1) Renal failure (2) Hypernatremia (3) Sepsis (4) UTI (urinary tract infection) Assessment Acute on chronic renal failure Dehydration, hypernatremia Sepsis, leukocytosis UTI Plan Slow hydration K supplement Avoid nephrotoxic's Monitor renal parameters Keep the blood pressure and blood sugar in check Per orders Subjective ROS Limited/Unobtainable: No Constitutional: Reports: malaise, weakness Objective Objective Last 24 Hour Vital Signs Date Time Temp Pulse Resp B/P (MAP) Pulse Ox O2 Delivery O2 Flow Rate FiO2 02/24/20 09:00 Room Air 02/24/20 08:00 98.1 85 18 122/67 (85) 93 02/24/20 04:00 98.2 84 19 148/90 (109) 99 02/24/20 00:00 97.3 88 20 143/78 (99) 95 02/23/20 21:00 Room Air 02/23/20 20:00 97.8 91 20 152/83 (106) 97 02/23/20 16:00 97.5 93 18 125/70 (88) 96 02/23/20 12:00 97.1 93 19 120/74 (89) 95 Intake and Output 02/23/20 02/24/20 18:59 06:59 Intake Total 560 ml 880 ml Balance 560 ml 880 ml IV Total 560 ml 880 ml # Voids 2 2 # Bowel Movements 1 Current Medications Medications (Trade) Dose Ordered Sig/Phong Route PRN Reason Start Time Stop Time Status Last Admin Dose Admin Acetaminophen (Tylenol) 500 mg Q4H PRN ORAL Mild Pain (Pain Scale 1-3) 02/22/20 22:30 03/23/20 22:29 Docusate Sodium (Colace) 100 mg THREE TIMES A DAY ORAL 02/23/20 18:00 03/24/20 17:59 02/23/20 17:27 Meropenem 500 mg/ Sodium Chloride 55 ml @ 110 mls/hr Q12H IVPB 02/23/20 09:00 02/28/20 08:59 02/24/20 09:18 Pantoprazole (Protonix) 40 mg EVERY 12 HOURS ORAL 02/23/20 21:00 03/24/20 20:59 02/23/20 20:37 Potassium Chloride 100 ml @ 100 mls/hr Q1H IVPB 02/24/20 11:30 02/24/20 15:29 Sodium Chloride 1,000 ml @ 75 mls/hr [id number] IV 02/22/20 21:15 03/23/20 21:14 02/23/20 23:42 Tamsulosin HCl (Flomax) 0.4 mg BEDTIME ORAL 02/23/20 21:00 03/24/20 20:59 02/23/20 20:37 Laboratory Tests 02/23/20 14:10: Urine Random Sodium < 20L 02/24/20 07:50: White Blood Count 12.7H, Red Blood Count 4.02L, Hemoglobin 12.1L, Hematocrit 37.6L, Mean Corpuscular Volume 94, Mean Corpuscular Hemoglobin 30.0, Mean Corpuscular Hemoglobin Concent 32.0, Red Cell Distribution Width 14.3, Platelet Count 195, Mean Platelet Volume 7.4, Neutrophils (%) (Auto) , Lymphocytes (%) ( Auto) , Monocytes (%) (Auto) , Eosinophils (%) (Auto) , Basophils (%) (Auto) , Differential Total Cells Counted 100, Neutrophils % (Manual) 85H, Lymphocytes % (Manual) 8L, Monocytes % (Manual) 5, Eosinophils % (Manual) 2, Basophils % ( Manual) 0, Band Neutrophils 0, Platelet Estimate Adequate, Platelet Morphology Normal, Red Blood Cell Morphology Normal, Sodium Level 147H, Potassium Level 3.4L, Chloride Level 115H, Carbon Dioxide Level 20L, Anion Gap 12, Blood Urea Nitrogen 57H, Creatinine 1.7H, Estimat Glomerular Filtration Rate 38.8, Glucose Level 106, Uric Acid 9.1H, Calcium Level 7.7L, Phosphorus Level 3.1, Magnesium Level 2.7H, Total Bilirubin 0.8, Aspartate Amino Transf (AST/SGOT) 96H, Alanine Aminotransferase (ALT/SGPT) 71, Alkaline Phosphatase 99, C-Reactive Protein, Quantitative 35.0H, Pro-B-Type Natriuretic Peptide 1696H, Total Protein 6.0L, Albumin 1.6L, Globulin 4.4, Albumin/Globulin Ratio 0.4L Height (Feet): 5 Height (Inches): 7.00 Weight (Pounds): 145 General Appearance: no apparent distress Objective no change Remington Helms MD Feb 24, 2020 11:27
--- NOTE | 2020-02-24 11:28 | Consultation ---
History of Present Illness General Chief Complaint: Abnormal Labs Present Illness Allergies: Coded Allergies: No Known Allergies (Unverified , 12/07/18) Medication History Discontinued Medications Acetaminophen* (Acetaminophen 325MG Tablet*), 650 MG ORAL Q6H PRN for temp above 101, (Reported) Discontinued Reason: MD discontinued med Amlodipine Besylate* (Amlodipine Besylate*), 5 MG ORAL DAILY, (Reported) Discontinued Reason: MD discontinued med Ascorbic Acid* (Vitamin C*), 500 MG ORAL DAILY, (Reported) Discontinued Reason: MD discontinued med Bisacodyl (Dulcolax), 10 MG RC, (Reported) Discontinued Reason: MD discontinued med Celecoxib* (Celebrex*), 200 MG ORAL DAILY, (Reported) Discontinued Reason: Pt stopped taking med Clonidine Hcl (Clonidine Hcl), 0.1 MG PO Q4HR PRN for SBP>170 mmHg, (Reported) Discontinued Reason: Pt stopped taking med Cranberry Fruit Concentrate (Cranberry), 450 MG PO, (Reported) Discontinued Reason: discontinued med Docusate Sodium* (Colace*), 100 MG ORAL THREE TIMES A DAY, (Reported) Discontinued Reason: MD discontinued med Finasteride* (Proscar*), 5 MG ORAL DAILY, (Reported) Discontinued Reason: MD discontinued med Magnesium Hydroxide (Milk of Magnesia), 30 ML ORAL DAILY PRN for Constipation, ( Reported) Discontinued Reason: MD discontinued med Olanzapine* (Zyprexa*), 2.5 MG ORAL Q6HR PRN for Agitation, (Reported) Discontinued Reason: Pt stopped taking med Polyethylene Glycol 3350* (Miralax*), 17 GM ORAL DAILY, (Reported) Discontinued Reason: Pt stopped taking med Tamsulosin HCl (Flomax), 0.4 MG ORAL BEDTIME, (Reported) Discontinued Reason: MD discontinued med Temazepam* (Restoril*), 7.5 MG ORAL DAILY PRN for Insomnia, (Reported) Discontinued Reason: Pt stopped taking med Patient History Healthcare decision maker Resuscitation status Advanced Directive on File Physical Exam Last 24 Hour Vital Signs Date Time Temp Pulse Resp B/P (MAP) Pulse Ox O2 Delivery O2 Flow Rate FiO2 02/24/20 09:00 Room Air 02/24/20 08:00 98.1 85 18 122/67 (85) 93 02/24/20 04:00 98.2 84 19 148/90 (109) 99 02/24/20 00:00 97.3 88 20 143/78 (99) 95 02/23/20 21:00 Room Air 02/23/20 20:00 97.8 91 20 152/83 (106) 97 02/23/20 16:00 97.5 93 18 125/70 (88) 96 02/23/20 12:00 97.1 93 19 120/74 (89) 95 Intake and Output 02/23/20 02/24/20 19:00 07:00 Intake Total 635 ml 805 ml Balance 635 ml 805 ml IV Total 635 ml 805 ml # Voids 2 2 # Bowel Movements 1 Laboratory Tests Test 02/23/20 14:10 02/24/20 07:50 Urine Random Sodium < 20 mmol/L (20-110) L White Blood Count 12.7 K/UL (4.8-10.8) H Red Blood Count 4.02 M/UL (4.70-6.10) L Hemoglobin 12.1 G/DL (14.2-18.0) L Hematocrit 37.6 % (42.0-52.0) L Mean Corpuscular Volume 94 FL (80-99) Mean Corpuscular Hemoglobin 30.0 PG (27.0-31.0) Mean Corpuscular Hemoglobin Concent 32.0 G/DL (32.0-36.0) Red Cell Distribution Width 14.3 % (11.6-14.8) Platelet Count 195 K/UL (150-450) Mean Platelet Volume 7.4 FL (6.5-10.1) Neutrophils (%) (Auto) % (45.0-75.0) Lymphocytes (%) (Auto) % (20.0-45.0) Monocytes (%) (Auto) % (1.0-10.0) Eosinophils (%) (Auto) % (0.0-3.0) Basophils (%) (Auto) % (0.0-2.0) Differential Total Cells Counted 100 Neutrophils % (Manual) 85 % (45-75) H Lymphocytes % (Manual) 8 % (20-45) L Monocytes % (Manual) 5 % (1-10) Eosinophils % (Manual) 2 % (0-3) Basophils % (Manual) 0 % (0-2) Band Neutrophils 0 % (0-8) Platelet Estimate Adequate Platelet Morphology Normal Red Blood Cell Morphology Normal Sodium Level 147 MMOL/L (136-145) H Potassium Level 3.4 MMOL/L (3.5-5.1) L Chloride Level 115 MMOL/L (98-107) H Carbon Dioxide Level 20 MMOL/L (21-32) L Anion Gap 12 mmol/L (5-15) Blood Urea Nitrogen 57 mg/dL (7-18) H Creatinine 1.7 MG/DL (0.55-1.30) H Estimat Glomerular Filtration Rate 38.8 mL/min (>60) Glucose Level 106 MG/DL (74-106) Uric Acid 9.1 MG/DL (2.6-7.2) H Calcium Level 7.7 MG/DL (8.5-10.1) L Phosphorus Level 3.1 MG/DL (2.5-4.9) Magnesium Level 2.7 MG/DL (1.8-2.4) H Total Bilirubin 0.8 MG/DL (0.2-1.0) Aspartate Amino Transf (AST/SGOT) 96 U/L (15-37) H Alanine Aminotransferase (ALT/SGPT) 71 U/L (12-78) Alkaline Phosphatase 99 U/L (46-116) C-Reactive Protein, Quantitative 35.0 mg/dL (0.00-0.90) H Pro-B-Type Natriuretic Peptide 1696 pg/mL (0-125) H Total Protein 6.0 G/DL (6.4-8.2) L Albumin 1.6 G/DL (3.4-5.0) L Globulin 4.4 g/dL Albumin/Globulin Ratio 0.4 (1.0-2.7) L Height (Feet): 5 Height (Inches): 7.00 Weight (Pounds): 145 Medications Current Medications Medications (Trade) Dose Ordered Sig/Phong Route PRN Reason Start Time Stop Time Status Last Admin Dose Admin Acetaminophen (Tylenol) 500 mg Q4H PRN ORAL Mild Pain (Pain Scale 1-3) 02/22/20 22:30 03/23/20 22:29 Docusate Sodium (Colace) 100 mg THREE TIMES A DAY ORAL 02/23/20 18:00 03/24/20 17:59 02/23/20 17:27 Meropenem 500 mg/ Sodium Chloride 55 ml @ 110 mls/hr Q12H IVPB 02/23/20 09:00 02/28/20 08:59 02/24/20 09:18 Pantoprazole (Protonix) 40 mg EVERY 12 HOURS ORAL 02/23/20 21:00 03/24/20 20:59 02/23/20 20:37 Potassium Chloride 100 ml @ 100 mls/hr Q1H IVPB 02/24/20 11:30 02/24/20 15:29 Sodium Chloride 1,000 ml @ 75 mls/hr [id number] IV 02/22/20 21:15 03/23/20 21:14 02/23/20 23:42 Tamsulosin HCl (Flomax) 0.4 mg BEDTIME ORAL 02/23/20 21:00 03/24/20 20:59 02/23/20 20:37 Assessment/Plan Assessment/Plan: Hematology Consultation REQ MD: Guido Martinez RFC: Leukocytosis DOS 02/24/2020 ID 80y old male, Patient sent in from [facility] with history of having an elevated white count. He denies any fevers or chills. He feels thirsty. He is also complaining about some burning when he urinates. He denies cough, sore throat, shortness of breath, chest pain, nausea, vomiting, diarrhea or constipation. He also denies abdominal pain. According to EMS they say he is not ambulatory but according to the patient he says he does walk. According to the history he has dementia. No fevers, chills, sore throat, palpitations, shortness of breath, joint pain, rashes, depression, anxiety, visual changes, dizziness, headache. Had a wbc of approx 19k, started on abx, seen by id, psych, renal, recs are noted The patient was admitted February 2019 with these discharge diagnoses: Right subtrochanteric femur fracture secondary to fall Status post open reduction and internal fixation right subtrochanteric femur fracture Hypertension BPH Dementia, probably dementia with behavioral disturbances Constipation Allergies: Coded Allergies: No Known Allergies (Unverified , 12/07/18) COVID-19 Screening Contact w/high risk pt: No Recent Travel to affected area: No Experienced COVID-19 symptoms?: No COVID-19 Testing performed [employer] 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 Patient History Limited by: medical condition Past Medical History: see triage record, old chart reviewed Past Surgical History: other - Right hip fracture Social History: Denies: smoking - Prior, alcohol use - Prior Social History Narrative Born in [place], used to clean floors -full code Nursing Documentation-PMH Hx Cardiac Problems: Yes - TIA, AV BLOCK Hx Hypertension: Yes Hx Cancer: No Hx Gastrointestinal Problems: Yes - GERD Hx Neurological Problems: Yes - DEMENTIA Hx Dementia: Yes Review of Systems All Other Systems: negative except mentioned in HPI - Somewhat questionable with history of dementia Physical Exam: Vitals: reviewed General: NAD HEENT: nc, at Neck: supple Chest: clear breath sounds bilaterally Cardiovascular: RRR, no s3, s4 Abdomen: soft, nontender, nd Extremities: no cce, normal range of motion Neuro: alert and oriented Labs noted Imaging: reviewed Assessment and Recs # Leukocytosis/elevated white blood cell count, unspecified likely related to underlying stress reaction, smoking v more likely infection (has uti) --> have reviewed peripheral smear and bandemia/neutrophilia noted --> continue antibiotics if they have been started by ID team --> monitor for resolution --> wbc 25-->13 --> as per id --> on abx meropenem # Anemia of likely hemodilution as initially hgb 16 --> hgb 16-->13 # Coagulopathy with elev ptt --> trend ptt as needed, if any hemolysis or bleeding --> vitk prn basis # Sepsis --> is currently on abx -> as per id # UTI (urinary tract infection) --> on abx # Teto --> as per renal Dr. Claudio # Psych h/l --> per psych Dr. Casey # Dvt ppx scds The timing of this note does not necessarily reflect the time of the patient was seen. Greatly appreciate consultation. Figueroa Valdivia MD Feb 24, 2020 11:28
[2020-02-24 12:00] VITALS: BP 147/68
--- NOTE | 2020-02-24 12:09 | NUR ---
CARDIOLOGY Patient refused 2D echo exam twice. Nurse is aware.
--- NOTE | 2020-02-24 14:27 | General Progress Note ---
Assessment/Plan Problem List: (1) Dementia ICD Codes: F03.90 - Unspecified dementia without behavioral disturbance SNOMED: 07638394 (2) Altered mental status ICD Codes: R41.82 - Altered mental status, unspecified SNOMED: 916852165 (3) Elevated WBC count ICD Codes: D72.829 - Elevated white blood cell count, unspecified SNOMED: 286722661, 022821514 (4) Leukocytosis ICD Codes: D72.829 - Elevated white blood cell count, unspecified SNOMED: 367890043, 983437492 Qualifiers: Qualified Codes: D72.828 - Other elevated white blood cell count (5) Renal failure ICD Codes: N19 - Unspecified kidney failure SNOMED: 40254840 Qualifiers: Qualified Codes: N17.9 - Acute kidney failure, unspecified (6) Sepsis ICD Codes: A41.9 - Sepsis, unspecified organism SNOMED: 90315403 Qualifiers: Qualified Codes: A41.9 - Sepsis, unspecified organism; R65.20 - Severe sepsis without septic shock; N17.9 - Acute kidney failure, unspecified (7) UTI (urinary tract infection) ICD Codes: N39.0 - Urinary tract infection, site not specified SNOMED: 18795128 Qualifiers: Qualified Codes: N39.0 - Urinary tract infection, site not specified Status: progressing Assessment/Plan: all 4 blood cx are positive for GNR sepsis uti leukocytosis is improving agitated Subjective ROS Limited/Unobtainable: Yes Allergies: Coded Allergies: No Known Allergies (Unverified , 12/07/18) Objective Last 24 Hour Vital Signs Date Time Temp Pulse Resp B/P (MAP) Pulse Ox O2 Delivery O2 Flow Rate FiO2 02/24/20 12:00 97.7 73 18 147/68 (94) 98 02/24/20 09:00 Room Air 02/24/20 08:00 98.1 85 18 122/67 (85) 93 02/24/20 04:00 98.2 84 19 148/90 (109) 99 02/24/20 00:00 97.3 88 20 143/78 (99) 95 02/23/20 21:00 Room Air 02/23/20 20:00 97.8 91 20 152/83 (106) 97 02/23/20 16:00 97.5 93 18 125/70 (88) 96 Intake and Output 02/23/20 02/24/20 19:00 07:00 Intake Total 635 ml 805 ml Balance 635 ml 805 ml IV Total 635 ml 805 ml # Voids 2 2 # Bowel Movements 1 Laboratory Tests 02/24/20 07:50: White Blood Count 12.7H, Red Blood Count 4.02L, Hemoglobin 12.1L, Hematocrit 37.6L, Mean Corpuscular Volume 94, Mean Corpuscular Hemoglobin 30.0, Mean Corpuscular Hemoglobin Concent 32.0, Red Cell Distribution Width 14.3, Platelet Count 195, Mean Platelet Volume 7.4, Neutrophils (%) (Auto) , Lymphocytes (%) ( Auto) , Monocytes (%) (Auto) , Eosinophils (%) (Auto) , Basophils (%) (Auto) , Differential Total Cells Counted 100, Neutrophils % (Manual) 85H, Lymphocytes % (Manual) 8L, Monocytes % (Manual) 5, Eosinophils % (Manual) 2, Basophils % ( Manual) 0, Band Neutrophils 0, Platelet Estimate Adequate, Platelet Morphology Normal, Red Blood Cell Morphology Normal, Sodium Level 147H, Potassium Level 3.4L, Chloride Level 115H, Carbon Dioxide Level 20L, Anion Gap 12, Blood Urea Nitrogen 57H, Creatinine 1.7H, Estimat Glomerular Filtration Rate 38.8, Glucose Level 106, Uric Acid 9.1H, Calcium Level 7.7L, Phosphorus Level 3.1, Magnesium Level 2.7H, Total Bilirubin 0.8, Aspartate Amino Transf (AST/SGOT) 96H, Alanine Aminotransferase (ALT/SGPT) 71, Alkaline Phosphatase 99, C-Reactive Protein, Quantitative 35.0H, Pro-B-Type Natriuretic Peptide 1696H, Total Protein 6.0L, Albumin 1.6L, Globulin 4.4, Albumin/Globulin Ratio 0.4L Height (Feet): 5 Height (Inches): 7.00 Weight (Pounds): 145 Guido Prieto MD Feb 24, 2020 14:27
[2020-02-24 16:00] VITALS: BP 121/87
--- NOTE | 2020-02-24 19:15 | NUR ---
HAND-OFF: Report given to DUARTE Oliver.
--- NOTE | 2020-02-24 19:20 | NUR ---
NURSE NOTES: Pt. received from DUARTE Foster. Pt. confused, alert to name, breathing even and unlabored, no indications or complaints of pain. IV left forearm 22g intact and patent, with 1/2NS at 50cc/hr. Bed is low and locked, pt. close to the nurses station, side rails x3 up, bed alarm active, and call light in reach.
[2020-02-24 20:00] VITALS: BP 113/76
[2020-02-24] MEDS: Tamsulosin 0.4mg cap ORAL SCH (20:43)
--- NOTE | 2020-02-24 23:26 | Psych Consult Progress Note ---
Psychiatry Progress Note Psychiatry Progress Note Medications Current Medications Medications (Trade) Dose Ordered Sig/Phong Route PRN Reason Start Time Stop Time Status Last Admin Dose Admin Acetaminophen (Tylenol) 500 mg Q4H PRN ORAL Mild Pain (Pain Scale 1-3) 02/22/20 22:30 03/23/20 22:29 Docusate Sodium (Colace) 100 mg THREE TIMES A DAY ORAL 02/23/20 18:00 03/24/20 17:59 02/24/20 17:05 Meropenem 500 mg/ Sodium Chloride 55 ml @ 110 mls/hr Q12H IVPB 02/23/20 09:00 02/28/20 08:59 02/24/20 20:42 Pantoprazole (Protonix) 40 mg EVERY 12 HOURS ORAL 02/23/20 21:00 03/24/20 20:59 02/24/20 20:43 Sodium Chloride 1,000 ml @ 50 mls/hr Q20H IV 02/24/20 11:31 03/25/20 11:30 02/24/20 11:47 Tamsulosin HCl (Flomax) 0.4 mg BEDTIME ORAL 02/23/20 21:00 03/24/20 20:59 02/24/20 20:43 Allergies: Coded Allergies: No Known Allergies (Unverified , 12/07/18) Objective Data Height (Feet): 5 Height (Inches): 7.00 Weight (Pounds): 145 Assessment/Plan Problem List: (1) Dementia with behavioral disturbance ICD Codes: F03.91 - Unspecified dementia with behavioral disturbance SNOMED: 8125582501733 Status: progressing Assessment/Plan: restraints to draw labs the pt lacks capacity to make decisions ativan prior to labs Liz Casey MD Feb 24, 2020 23:26
--- NOTE | 2020-02-24 23:59 | NUR ---
HAND-OFF: Report given to DUARTE Julian. Pt. endorsed as fall risk, fall risk measures implemented.
[2020-02-25] VITALS: BP 140/79
--- NOTE | 2020-02-25 | NUR ---
NURSE NOTES: Received report from dolores lal. patient on bed, awake. confused. with iv line on the left hand running 1/2 ns @ 50 ml/hr. denies any pain or discomfort. room air. no sob. per lukasz,"patient tried to get up on the bed". bed alarm on. side rails up. bed locked and in lowest position. call light and light button within easy reach. will continue plan of care.
[2020-02-25 04:00] VITALS: BP 129/74
[2020-02-25 07:08] LABS: ALANINE AMINOTRANSFERASE 154 U/L (12-78); ALBUMIN 1.8 G/DL (3.4-5.0); ALBUMIN/GLOBULIN RATIO 0.4 (1.0-2.7); ALKALINE PHOSPHATASE 118 U/L (46-116); ANION GAP 11 mmol/L (5-15); ASPARTATE AMINO TRANSFERASE 201 U/L (15-37); BLOOD UREA NITROGEN 45 mg/dL (7-18); CALCIUM 7.8 MG/DL (8.5-10.1); CARBON DIOXIDE 22 MMOL/L (21-32); CHLORIDE 114 MMOL/L (98-107); CREATININE 1.5 MG/DL (0.55-1.30); PHOSPHORUS 2.1 MG/DL (2.5-4.9); SODIUM 147 MMOL/L (136-145)
--- NOTE | 2020-02-25 07:21 | NUR ---
NURSE NOTES: Patient asleep; on room air, no sing of shortness of breath, no sing of distress; no sing of chest pain; IV Left-Hand 1/2NS @50cc running; patient fall risk and bed alarm on, side rials up x2, breaks engaged; call light within reach; will keep monitoring.
--- NOTE | 2020-02-25 07:25 | NUR ---
HAND-OFF: Report given to dolores wolfe.endorased that the ptis fall risk. advised to observed fall precautions
[2020-02-25 08:00] VITALS: BP 133/74
[2020-02-25] MEDS: Docusate 100mg cap ORAL SCH ×3 (08:48→17:04)
[2020-02-25] MEDS: cefTRIAXone 2 GM in D5W 55 ML IVPB SCH (09:39)
--- NOTE | 2020-02-25 10:08 | Nephrology Progress Note ---
Assessment/Plan Problem List: (1) Renal failure (2) Hypernatremia (3) Sepsis (4) UTI (urinary tract infection) Assessment Acute on chronic renal failure Dehydration, hypernatremia Sepsis, leukocytosis UTI Plan February 24: Lab reviewed. Discussed with RN. Renal parameters improving. Change IV to D5W. Continue per consultants. Serum creatinine down to 1.5 from 2.5. Change diet to regular as kidney function is improving. Slow hydration K supplement Avoid nephrotoxic's Monitor renal parameters Keep the blood pressure and blood sugar in check Per orders Subjective ROS Limited/Unobtainable: No Constitutional: Reports: malaise Objective Objective Last 24 Hour Vital Signs Date Time Temp Pulse Resp B/P (MAP) Pulse Ox O2 Delivery O2 Flow Rate FiO2 02/25/20 09:00 Room Air 02/25/20 08:00 97.0 63 18 133/74 (93) 98 02/25/20 04:00 98.9 70 20 129/74 (92) 95 02/25/20 00:00 98.6 66 20 140/79 (99) 95 02/24/20 21:00 Room Air 02/24/20 20:00 98.4 73 20 113/76 (88) 95 02/24/20 16:00 98.4 76 19 121/87 (98) 98 02/24/20 12:00 97.7 73 18 147/68 (94) 98 Intake and Output 02/24/20 02/25/20 19:00 07:00 Intake Total 1460 ml 985 ml Output Total 800 ml Balance 660 ml 985 ml Intake Oral 480 ml IV Total 760 ml 505 ml Other 700 ml Output Urine Total 800 ml # Voids 2 Current Medications Medications (Trade) Dose Ordered Sig/Phong Route PRN Reason Start Time Stop Time Status Last Admin Dose Admin Acetaminophen (Tylenol) 500 mg Q4H PRN ORAL Mild Pain (Pain Scale 1-3) 02/22/20 22:30 03/23/20 22:29 Ceftriaxone Sodium 2 gm/ Dextrose 55 ml @ 110 mls/hr Q24H IVPB 02/25/20 10:00 03/03/20 09:59 02/25/20 09:39 Docusate Sodium (Colace) 100 mg THREE TIMES A DAY ORAL 02/23/20 18:00 03/24/20 17:59 02/25/20 08:48 Pantoprazole (Protonix) 40 mg EVERY 12 HOURS ORAL 02/23/20 21:00 03/24/20 20:59 02/25/20 08:48 Sodium Chloride 1,000 ml @ 50 mls/hr Q20H IV 02/24/20 11:31 03/25/20 11:30 02/25/20 06:00 Tamsulosin HCl (Flomax) 0.4 mg BEDTIME ORAL 02/23/20 21:00 03/24/20 20:59 02/24/20 20:43 Laboratory Tests 02/25/20 05:15: Sodium Level 147H, Potassium Level 4.0, Chloride Level 114H, Carbon Dioxide Level 22, Anion Gap 11, Blood Urea Nitrogen 45H, Creatinine 1.5H, Estimat Glomerular Filtration Rate 44.8, Glucose Level 98, Uric Acid 7.7H, Calcium Level 7.8L, Phosphorus Level 2.1L, Magnesium Level 2.5H, Total Bilirubin 1.0, Aspartate Amino Transf (AST/SGOT) 201H, Alanine Aminotransferase (ALT/SGPT) 154H , Alkaline Phosphatase 118H, Total Protein 6.2L, Albumin 1.8L, Globulin 4.4, Albumin/Globulin Ratio 0.4L Height (Feet): 5 Height (Inches): 7.00 Weight (Pounds): 145 General Appearance: no apparent distress, lethargic Cardiovascular: normal rate Respiratory/Chest: lungs clear Abdomen: soft Objective no change Remington Helms MD Feb 25, 2020 10:08
[2020-02-25 12:00] VITALS: BP 136/76
--- NOTE | 2020-02-25 12:43 | NUR ---
CASE MANAGEMENT:REVIEW 02/25/20 SI: SEPSIS. T 97 HR 63 RR 18 B/P 133/74 SATS 98% ON RA LABS: NA 147 CL 114 BUN 45 CR 1.5 CA 7.8 PHOS 2.1 MG 2.5 AST 201 ALT 154 ALP 118 IS: CEFTRIAXONE IV Q24H IVF@75 ML/HR PROTONIX PO QD FLOMAX PO QHS : MED/SURG STATUS 4 EAST DCP: FROM [facility] CONV PLAN: ABD US IMPRESSION: Echogenic focus in the right [id number] pole measuring 7 x 4 mm, which may represent a nonobstructing calculus. Bilateral renal cysts, measuring up to 7.7 x 5.8 cm on left.
[2020-02-25 16:00] VITALS: BP 135/75
--- NOTE | 2020-02-25 16:20 | NUR ---
NURSE NOTES: Patient skin assessment done; Optifoam placed on sacral to prevent pressure ulcer; condom cath place for urination;
--- NOTE | 2020-02-25 18:00 | CDS Physician Query ---
Clarification is required for compliance, coding accuracy, and to reflect severity of illness for this patient Dear Dr. Guido Solano Date: 02/25/2020 Retail Branch Manager/CDS Name: Maxx Jennings Exercise your independent professional judgment when responding to query. Question asked do not imply a particular answer is desired/expected. Clinical Documentation States: 80-year-old male with mmp who was admitted for for sepsis, UTI. The patient is confused and is unable to provide meaningful hx the pt is agitated and uncooperative. He is being admitted for symptomatic UTI and altered mental status, poor intake, rule out COVID. . [H&P Guido Prieto M.D. 02/22/2020] ASSESSMENT AND PLAN: Acute renal failure, most likely due to poor p.o. intake, dehydration, UTI, rule out sepsis. Clinical Findings Show: Vitals (02/21): T96.9F, Pulse 98, RR 24 Labs (02/21): HEM: WBC 24.6, Neutr% 90H Chem :Sodium 149, Chloride 11 , Glucose 155, Alb 2.2 Urine : Ur. Bacteria "Many", Ur.Esterase 3+ Medication: Lorazepam 1mg IV (02/22), Potassium Chloride ( 02/23), Sodium Chloride 1000ml IV (02/21-02/24) Please indicate the nature and chronicity of the condition below: [] Metabolic Encephalopathy [] Toxic Encephalopathy [] Toxic - Metabolic Encephalopathy [] Encephalopathy, Other [] Dementia with Delirium [] Hypoxic encephalopathy [] Posterior reversible encephalopathy syndrome [] Other: [] Not Applicable Present on Admission: [] Yes [] No [] Clinically Undetermined Physician signature Date Please also document in your Progress Notes and/or Discharge Summary and indicate if the condition was present on admission. MTDD
--- NOTE | 2020-02-25 19:22 | NUR ---
HAND-OFF: Report given to DUARTE Madrid. Endorsed to the incoming nurse that patient is risk for fall; patient is resting, fluid is running and condom cath in place;
--- NOTE | 2020-02-25 19:40 | NUR ---
NURSE NOTES: Patient in bed, resting. On room air with no signs of distress or SOB. IV intact and running IVF as ordered. Bed locked and in lowest position. Call light in reach. Will continue to follow plan of care.
[2020-02-25 20:00] VITALS: BP 137/91
[2020-02-25] MEDS: Tamsulosin 0.4mg cap ORAL SCH (20:45)
--- NOTE | 2020-02-25 20:47 | NUR ---
NURSE NOTES: Patient spitting out and refusing PM PO medications
--- NOTE | 2020-02-25 23:42 | General Progress Note ---
Assessment/Plan Problem List: (1) Dementia ICD Codes: F03.90 - Unspecified dementia without behavioral disturbance SNOMED: 82828207 (2) Altered mental status ICD Codes: R41.82 - Altered mental status, unspecified SNOMED: 052518208 (3) Elevated WBC count ICD Codes: D72.829 - Elevated white blood cell count, unspecified SNOMED: 215875436, 989208682 (4) Leukocytosis ICD Codes: D72.829 - Elevated white blood cell count, unspecified SNOMED: 569598307, 372778728 Qualifiers: Qualified Codes: D72.828 - Other elevated white blood cell count (5) Renal failure ICD Codes: N19 - Unspecified kidney failure SNOMED: 99893729 Qualifiers: Qualified Codes: N17.9 - Acute kidney failure, unspecified (6) Sepsis ICD Codes: A41.9 - Sepsis, unspecified organism SNOMED: 17913564 Qualifiers: Qualified Codes: A41.9 - Sepsis, unspecified organism; R65.20 - Severe sepsis without septic shock; N17.9 - Acute kidney failure, unspecified (7) UTI (urinary tract infection) ICD Codes: N39.0 - Urinary tract infection, site not specified SNOMED: 08233348 Qualifiers: Qualified Codes: N39.0 - Urinary tract infection, site not specified Status: progressing Assessment/Plan: positive blood cx no fever reviewed chart and labs sepsis uti Subjective ROS Limited/Unobtainable: Yes Allergies: Coded Allergies: No Known Allergies (Unverified , 12/07/18) Objective Last 24 Hour Vital Signs Date Time Temp Pulse Resp B/P (MAP) Pulse Ox O2 Delivery O2 Flow Rate FiO2 02/25/20 20:04 Room Air 02/25/20 20:00 98.1 75 19 137/91 (106) 95 02/25/20 16:00 97.3 63 20 135/75 (95) 95 02/25/20 12:00 98.1 65 18 136/76 (96) 96 02/25/20 09:00 Room Air 02/25/20 08:00 97.0 63 18 133/74 (93) 98 02/25/20 04:00 98.9 70 20 129/74 (92) 95 02/25/20 00:00 98.6 66 20 140/79 (99) 95 Intake and Output 02/24/20 02/25/20 19:00 07:00 Intake Total 1460 ml 985 ml Output Total 800 ml Balance 660 ml 985 ml Intake Oral 480 ml IV Total 760 ml 505 ml Other 700 ml Output Urine Total 800 ml # Voids 2 Laboratory Tests 02/25/20 05:15: Sodium Level 147H, Potassium Level 4.0, Chloride Level 114H, Carbon Dioxide Level 22, Anion Gap 11, Blood Urea Nitrogen 45H, Creatinine 1.5H, Estimat Glomerular Filtration Rate 44.8, Glucose Level 98, Uric Acid 7.7H, Calcium Level 7.8L, Phosphorus Level 2.1L, Magnesium Level 2.5H, Total Bilirubin 1.0, Aspartate Amino Transf (AST/SGOT) 201H, Alanine Aminotransferase (ALT/SGPT) 154H , Alkaline Phosphatase 118H, Total Protein 6.2L, Albumin 1.8L, Globulin 4.4, Albumin/Globulin Ratio 0.4L Height (Feet): 5 Height (Inches): 7.00 Weight (Pounds): 145 Guido Prieto MD Feb 25, 2020 23:42
[2020-02-26] VITALS: BP 159/84
[2020-02-26 04:00] VITALS: BP 157/75
--- NOTE | 2020-02-26 07:03 | NUR ---
HAND-OFF: Report given to DUARTE Franco.
--- NOTE | 2020-02-26 07:12 | NUR ---
NURSE NOTES: Patient alert x2, confused, combative; on room air, no sing of distress and shortness of breath; no sing of chest pain; IV Left-hand D5W @75cc running; side rails up x2, breaks engaged, bed at lowest position, bed alarm on; call light within reach; Ecchymosis on the Right For-arm; Optifoam on sacral to prevent pressure ulcer; will keep monitoring.
[2020-02-26 08:00] VITALS: BP 141/73
--- NOTE | 2020-02-26 08:21 | Nephrology Progress Note ---
Assessment/Plan Problem List: (1) Renal failure (2) Hypernatremia (3) Sepsis (4) UTI (urinary tract infection) Assessment Acute on chronic renal failure Dehydration, hypernatremia Sepsis, leukocytosis UTI Plan February 25: No labs done today. Will check labs tomorrow. Remains stable from renal standpoint of view February 24: Lab reviewed. Discussed with RN. Renal parameters improving. Change IV to D5W. Continue per consultants. Serum creatinine down to 1.5 from 2.5. Change diet to regular as kidney function is improving. Slow hydration K supplement Avoid nephrotoxic's Monitor renal parameters Keep the blood pressure and blood sugar in check Per orders Subjective ROS Limited/Unobtainable: No Constitutional: Reports: malaise Objective Objective Last 24 Hour Vital Signs Date Time Temp Pulse Resp B/P (MAP) Pulse Ox O2 Delivery O2 Flow Rate FiO2 02/26/20 08:00 98.1 77 20 141/73 (95) 96 02/26/20 04:00 97.3 66 20 157/75 (102) 95 02/26/20 00:00 97.8 84 19 159/84 (109) 96 02/25/20 20:04 Room Air 02/25/20 20:00 98.1 75 19 137/91 (106) 95 02/25/20 16:00 97.3 63 20 135/75 (95) 95 02/25/20 12:00 98.1 65 18 136/76 (96) 96 02/25/20 09:00 Room Air Intake and Output 02/25/20 02/26/20 19:00 07:00 Intake Total 810 ml 75 ml Balance 810 ml 75 ml IV Total 810 ml 75 ml # Voids 1 No labs done today Height (Feet): 5 Height (Inches): 7.00 Weight (Pounds): 145 General Appearance: no apparent distress Cardiovascular: normal rate Respiratory/Chest: decreased breath sounds Abdomen: soft Objective no change Remington Helms MD Feb 26, 2020 08:21
[2020-02-26] MEDS: Docusate 100mg cap ORAL SCH ×3 (08:45→17:13)
--- NOTE | 2020-02-26 08:50 | NUR ---
NURSE NOTES: I received a discharge order to [facility] for today; order carried out as order given;
--- NOTE | 2020-02-26 09:26 | NUR ---
DISCHARGE PLANNING: PATIENT REFERRED BACK TO [facility] CONV. T:[phone] F:[phone] PER RICARDO FROM FACILITY NO ADMISSIONS OVER WEEKEND PATIENT WILL BE ACCEPTED FIRST AM CM WILL CONFIRM FAXED RECEIVED WITH RICARDO
[2020-02-26] MEDS: cefTRIAXone 2 GM in D5W 55 ML IVPB SCH (10:08)
--- NOTE | 2020-02-26 10:21 | NUR ---
NURSE NOTES: Per Case Management Julieta Malik accept admission over weekend; planed to accept first am; MD Prieto notified; waiting for order;
--- NOTE | 2020-02-26 11:06 | NUR ---
NURSE NOTES: Received order from MD Prieto to change the discharge to tomorrow 02/27/20; order carried out as order given by ; Charge nurse, Rodger is aware;
[2020-02-26 12:00] VITALS: BP 120/80
--- NOTE | 2020-02-26 12:11 | NUR ---
CASE MANAGEMENT:REVIEW 02/26/20 SI: SEPSIS. 97.1 75 20 120/80 97% ON RA IS: IV ROCEPHIN QD IV D5@75 ML/HR PROTONIX PO BID FLOMAX PO QHS : MED/SURG STATUS 4 EAST DCP: FROM [facility] PLAN: ANTICIPATED DC IN AM
--- NOTE | 2020-02-26 12:15 | NUR ---
*-* INSURANCE *-* UPDATED CLINICALS AND REVIEWS HAVE BEEN FAXED TO: [employer] AUTH#[id number] P:[phone] F:[phone]
--- NOTE | 2020-02-26 15:15 | Infectious Diseases Prog Note ---
Assessment/Plan Assessment/Plan IMPRESSION: 1. E. coli sepsis. 2. E.coli UTI. 3. Renal failure, seems to be acute. 4. Dementia. 5. Hypertension. 6. BPH. 7. R nephrolithiasis RECOMMENDATION: Continue Rocephin Can be discharged with PO Cipro X 5 days Subjective ROS Limited/Unobtainable: Yes Allergies: Coded Allergies: No Known Allergies (Unverified , 12/07/18) Objective Last 24 Hour Vital Signs Date Time Temp Pulse Resp B/P (MAP) Pulse Ox O2 Delivery O2 Flow Rate FiO2 02/26/20 12:00 97.1 75 20 120/80 (93) 97 02/26/20 09:00 Room Air 02/26/20 08:00 98.1 77 20 141/73 (95) 96 02/26/20 04:00 97.3 66 20 157/75 (102) 95 02/26/20 00:00 97.8 84 19 159/84 (109) 96 02/25/20 20:04 Room Air 02/25/20 20:00 98.1 75 19 137/91 (106) 95 02/25/20 16:00 97.3 63 20 135/75 (95) 95 Height (Feet): 5 Height (Inches): 7.00 Weight (Pounds): 145 HEENT: mucous membranes moist Respiratory/Chest: normal breath sounds Cardiovascular: normal rate Abdomen: soft, non tender Extremities: no edema Neurologic/Psychiatric: other - sleepong Current Medications Medications (Trade) Dose Ordered Sig/Phong Route PRN Reason Start Time Stop Time Status Last Admin Dose Admin Acetaminophen (Tylenol) 500 mg Q4H PRN ORAL Mild Pain (Pain Scale 1-3) 02/22/20 22:30 03/23/20 22:29 Ceftriaxone Sodium 2 gm/ Dextrose 55 ml @ 110 mls/hr Q24H IVPB 02/25/20 10:00 03/03/20 09:59 02/26/20 10:08 Dextrose 1,000 ml @ 75 mls/hr [id number] IV 02/25/20 10:15 03/26/20 10:14 02/26/20 12:59 Docusate Sodium (Colace) 100 mg THREE TIMES A DAY ORAL 02/23/20 18:00 03/24/20 17:59 02/26/20 12:59 Pantoprazole (Protonix) 40 mg EVERY 12 HOURS ORAL 02/23/20 21:00 03/24/20 20:59 02/26/20 08:45 Tamsulosin HCl (Flomax) 0.4 mg BEDTIME ORAL 02/23/20 21:00 03/24/20 20:59 02/24/20 20:43 Chito Murrell MD Feb 26, 2020 15:15
--- NOTE | 2020-02-26 15:58 | Hematology/Onc Progress Note ---
Assessment/Plan Assessment/Plan Assessment and Recs # Leukocytosis/elevated white blood cell count, unspecified likely related to underlying stress reaction, smoking v more likely infection (has uti) --> have reviewed peripheral smear and bandemia/neutrophilia noted --> continue antibiotics if they have been started by ID team --> monitor for resolution --> wbc 25-->13 --> as per id --> on abx meropenem-->cftx # Anemia of likely hemodilution as initially hgb 16 --> hgb 16-->13 # Coagulopathy with elev ptt --> trend ptt as needed, if any hemolysis or bleeding --> vitk prn basis # Sepsis --> is currently on abx -> as per id # UTI (urinary tract infection) --> on abx # Teto --> as per renal Dr. Claudio # Psych h/l --> per psych Dr. Casey # Dvt ppx scds The timing of this note does not necessarily reflect the time of the patient was seen. Greatly appreciate consultation. Subjective Allergies: Coded Allergies: No Known Allergies (Unverified , 12/07/18) Subjective 02/25 on med surg, no events, no hsm/cirrhosis, dc planning Objective Objective Current Medications Medications (Trade) Dose Ordered Sig/Phong Route PRN Reason Start Time Stop Time Status Last Admin Dose Admin Acetaminophen (Tylenol) 500 mg Q4H PRN ORAL Mild Pain (Pain Scale 1-3) 02/22/20 22:30 03/23/20 22:29 Ceftriaxone Sodium 2 gm/ Dextrose 55 ml @ 110 mls/hr Q24H IVPB 02/25/20 10:00 03/03/20 09:59 02/26/20 10:08 Dextrose 1,000 ml @ 75 mls/hr [id number] IV 02/25/20 10:15 03/26/20 10:14 02/26/20 12:59 Docusate Sodium (Colace) 100 mg THREE TIMES A DAY ORAL 02/23/20 18:00 03/24/20 17:59 02/26/20 12:59 Pantoprazole (Protonix) 40 mg EVERY 12 HOURS ORAL 02/23/20 21:00 03/24/20 20:59 02/26/20 08:45 Tamsulosin HCl (Flomax) 0.4 mg BEDTIME ORAL 02/23/20 21:00 03/24/20 20:59 02/24/20 20:43 Last 24 Hour Vital Signs Date Time Temp Pulse Resp B/P (MAP) Pulse Ox O2 Delivery O2 Flow Rate FiO2 02/26/20 12:00 97.1 75 20 120/80 (93) 97 02/26/20 09:00 Room Air 02/26/20 08:00 98.1 77 20 141/73 (95) 96 02/26/20 04:00 97.3 66 20 157/75 (102) 95 02/26/20 00:00 97.8 84 19 159/84 (109) 96 02/25/20 20:04 Room Air 02/25/20 20:00 98.1 75 19 137/91 (106) 95 02/25/20 16:00 97.3 63 20 135/75 (95) 95 02/25/20 12:00 98.1 65 18 136/76 (96) 96 02/25/20 09:00 Room Air 02/25/20 08:00 97.0 63 18 133/74 (93) 98 02/25/20 04:00 98.9 70 20 129/74 (92) 95 02/25/20 00:00 98.6 66 20 140/79 (99) 95 02/24/20 21:00 Room Air 02/24/20 20:00 98.4 73 20 113/76 (88) 95 02/24/20 16:00 98.4 76 19 121/87 (98) 98 Intake and Output 02/25/20 02/26/20 19:00 07:00 Intake Total 810 ml 75 ml Balance 810 ml 75 ml IV Total 810 ml 75 ml # Voids 1 Labs Test 02/24/20 07:50 02/25/20 05:15 White Blood Count 12.7 K/UL (4.8-10.8) Red Blood Count 4.02 M/UL (4.70-6.10) Hemoglobin 12.1 G/DL (14.2-18.0) Hematocrit 37.6 % (42.0-52.0) Mean Corpuscular Volume 94 FL (80-99) Mean Corpuscular Hemoglobin 30.0 PG (27.0-31.0) Mean Corpuscular Hemoglobin Concent 32.0 G/DL (32.0-36.0) Red Cell Distribution Width 14.3 % (11.6-14.8) Platelet Count 195 K/UL (150-450) Mean Platelet Volume 7.4 FL (6.5-10.1) Neutrophils (%) (Auto) % (45.0-75.0) Lymphocytes (%) (Auto) % (20.0-45.0) Monocytes (%) (Auto) % (1.0-10.0) Eosinophils (%) (Auto) % (0.0-3.0) Basophils (%) (Auto) % (0.0-2.0) Differential Total Cells Counted 100 Neutrophils % (Manual) 85 % (45-75) Lymphocytes % (Manual) 8 % (20-45) Monocytes % (Manual) 5 % (1-10) Eosinophils % (Manual) 2 % (0-3) Basophils % (Manual) 0 % (0-2) Band Neutrophils 0 % (0-8) Platelet Estimate Adequate Platelet Morphology Normal Red Blood Cell Morphology Normal Sodium Level 147 MMOL/L (136-145) 147 MMOL/L (136-145) Potassium Level 3.4 MMOL/L (3.5-5.1) 4.0 MMOL/L (3.5-5.1) Chloride Level 115 MMOL/L (98-107) 114 MMOL/L (98-107) Carbon Dioxide Level 20 MMOL/L (21-32) 22 MMOL/L (21-32) Anion Gap 12 mmol/L (5-15) 11 mmol/L (5-15) Blood Urea Nitrogen 57 mg/dL (7-18) 45 mg/dL (7-18) Creatinine 1.7 MG/DL (0.55-1.30) 1.5 MG/DL (0.55-1.30) Estimat Glomerular Filtration Rate 38.8 mL/min (>60) 44.8 mL/min (>60) Glucose Level 106 MG/DL (74-106) 98 MG/DL (74-106) Uric Acid 9.1 MG/DL (2.6-7.2) 7.7 MG/DL (2.6-7.2) Calcium Level 7.7 MG/DL (8.5-10.1) 7.8 MG/DL (8.5-10.1) Phosphorus Level 3.1 MG/DL (2.5-4.9) 2.1 MG/DL (2.5-4.9) Magnesium Level 2.7 MG/DL (1.8-2.4) 2.5 MG/DL (1.8-2.4) Total Bilirubin 0.8 MG/DL (0.2-1.0) 1.0 MG/DL (0.2-1.0) Aspartate Amino Transf (AST/SGOT) 96 U/L (15-37) 201 U/L (15-37) Alanine Aminotransferase (ALT/SGPT) 71 U/L (12-78) 154 U/L (12-78) Alkaline Phosphatase 99 U/L (46-116) 118 U/L (46-116) C-Reactive Protein, Quantitative 35.0 mg/dL (0.00-0.90) Pro-B-Type Natriuretic Peptide 1696 pg/mL (0-125) Total Protein 6.0 G/DL (6.4-8.2) 6.2 G/DL (6.4-8.2) Albumin 1.6 G/DL (3.4-5.0) 1.8 G/DL (3.4-5.0) Globulin 4.4 g/dL 4.4 g/dL Albumin/Globulin Ratio 0.4 (1.0-2.7) 0.4 (1.0-2.7) Height (Feet): 5 Height (Inches): 7.00 Weight (Pounds): 145 Objective Physical Exam: Vitals: reviewed General: NAD HEENT: nc, at Neck: supple Chest: clear breath sounds bilaterally Cardiovascular: RRR, no s3, s4 Abdomen: soft, nontender, nd Extremities: no cce, normal range of motion Neuro: alert and oriented Figueroa Valdivia MD Feb 26, 2020 15:58
[2020-02-26 16:00] VITALS: BP 135/85
--- NOTE | 2020-02-26 16:18 | NUR ---
NURSE NOTES: MD Wilber carr discharge this patient with Cipro 500 mg Q12Hr for 5 days; I informed the recommendation discharge antibiotic medication to MD Prieto; MD Prieto didn't give a go ahead order; Charge nurseRodger is aware;
--- NOTE | 2020-02-26 19:13 | NUR ---
HAND-OFF: Report given to DUARTE Madrid. Endorsed to the incoming nurse the plan to discharge patient in the AM; Also endorsed the discharge mediations from MD Prieto and MD Murrell for antibiotis; patient resting and IV fluid running.
[2020-02-26 20:00] VITALS: BP 131/91
[2020-02-26] MEDS: Tamsulosin 0.4mg cap ORAL SCH (20:34)
--- NOTE | 2020-02-26 22:39 | General Progress Note ---
Assessment/Plan Problem List: (1) Dementia ICD Codes: F03.90 - Unspecified dementia without behavioral disturbance SNOMED: 54234726 (2) Altered mental status ICD Codes: R41.82 - Altered mental status, unspecified SNOMED: 726587558 (3) Elevated WBC count ICD Codes: D72.829 - Elevated white blood cell count, unspecified SNOMED: 660252227, 625395009 (4) Leukocytosis ICD Codes: D72.829 - Elevated white blood cell count, unspecified SNOMED: 901133672, 640685470 Qualifiers: Qualified Codes: D72.828 - Other elevated white blood cell count (5) Renal failure ICD Codes: N19 - Unspecified kidney failure SNOMED: 96955792 Qualifiers: Qualified Codes: N17.9 - Acute kidney failure, unspecified (6) Sepsis ICD Codes: A41.9 - Sepsis, unspecified organism SNOMED: 74106802 Qualifiers: Qualified Codes: A41.9 - Sepsis, unspecified organism; R65.20 - Severe sepsis without septic shock; N17.9 - Acute kidney failure, unspecified (7) UTI (urinary tract infection) ICD Codes: N39.0 - Urinary tract infection, site not specified SNOMED: 82753744 Qualifiers: Qualified Codes: N39.0 - Urinary tract infection, site not specified Status: progressing Assessment/Plan: positive blood cx snf couldnt accept the pt today and instead they want him back tomorrow sepsis uti Subjective ROS Limited/Unobtainable: Yes Allergies: Coded Allergies: No Known Allergies (Unverified , 12/07/18) Objective Last 24 Hour Vital Signs Date Time Temp Pulse Resp B/P (MAP) Pulse Ox O2 Delivery O2 Flow Rate FiO2 02/26/20 20:10 Room Air 02/26/20 20:00 97.7 72 19 131/91 (104) 96 02/26/20 16:00 98.6 80 18 135/85 (102) 97 02/26/20 12:00 97.1 75 20 120/80 (93) 97 02/26/20 09:00 Room Air 02/26/20 08:00 98.1 77 20 141/73 (95) 96 02/26/20 04:00 97.3 66 20 157/75 (102) 95 02/26/20 00:00 97.8 84 19 159/84 (109) 96 Intake and Output 02/25/20 02/26/20 19:00 07:00 Intake Total 810 ml 75 ml Balance 810 ml 75 ml IV Total 810 ml 75 ml # Voids 1 Height (Feet): 5 Height (Inches): 7.00 Weight (Pounds): 145 Guido Prieto MD Feb 26, 2020 22:38
[2020-02-26] MEDS ORDERED: CIPRO500 MG PO (22:52)
[2020-02-27] VITALS: BP 128/88
--- NOTE | 2020-02-27 01:14 | Progress Note ---
DATE: 02/26/2020 SUBJECTIVE: Patient is in bed. Continues to have episodes of agitation. Patient has waxing waning consciousness, disoriented, needs redirection. MENTAL STATUS EXAMINATION: Awake, disoriented. Mood is agitated. Affect is flat. Thought process is concrete. Thought content, no suicidal or homicidal ideation. Cognition is impaired. Insight and judgment is impaired. ASSESSMENT: Dementia with behavior disturbance. PLAN: 1. Continue current medications. 2. Provide the patient with reality orientation and supportive therapy. 3. We will continue to follow and readjust the medications. Liz Casey M.D. DR: MUSA JOB#: [id number] CC:
[2020-02-27 04:00] VITALS: BP 150/81
--- NOTE | 2020-02-27 07:39 | Nephrology Progress Note ---
Assessment/Plan Problem List: (1) Renal failure (2) Hypernatremia (3) Sepsis (4) UTI (urinary tract infection) Assessment Acute on chronic renal failure Dehydration, hypernatremia Sepsis, leukocytosis UTI Plan February 26: Today's labs pending. Patient lethargic. Vital signs stable. Further comments after today's labs. February 25: No labs done today. Will check labs tomorrow. Remains stable from renal standpoint of view February 24: Lab reviewed. Discussed with RN. Renal parameters improving. Change IV to D5W. Continue per consultants. Serum creatinine down to 1.5 from 2.5. Change diet to regular as kidney function is improving. Slow hydration K supplement Avoid nephrotoxic's Monitor renal parameters Keep the blood pressure and blood sugar in check Per orders Subjective ROS Limited/Unobtainable: No Constitutional: Reports: malaise, weakness Objective Objective Last 24 Hour Vital Signs Date Time Temp Pulse Resp B/P (MAP) Pulse Ox O2 Delivery O2 Flow Rate FiO2 02/27/20 04:00 97.6 94 20 150/81 (104) 95 02/27/20 00:00 97.3 82 19 128/88 (101) 96 02/26/20 20:10 Room Air 02/26/20 20:00 97.7 72 19 131/91 (104) 96 02/26/20 16:00 98.6 80 18 135/85 (102) 97 02/26/20 12:00 97.1 75 20 120/80 (93) 97 02/26/20 09:00 Room Air 02/26/20 08:00 98.1 77 20 141/73 (95) 96 Intake and Output 02/26/20 02/27/20 19:00 07:00 Intake Total 1175 ml Balance 1175 ml Intake Oral 240 ml IV Total 935 ml # Voids 1 2 Today's labs still pending Height (Feet): 5 Height (Inches): 7.00 Weight (Pounds): 145 General Appearance: no apparent distress Cardiovascular: normal rate Respiratory/Chest: decreased breath sounds Abdomen: soft Objective no change Remington Helms MD Feb 27, 2020 07:39
--- NOTE | 2020-02-27 07:43 | NUR ---
NURSE NOTES: DUARTE Love
[2020-02-27 08:00] VITALS: BP 140/77
--- NOTE | 2020-02-27 08:01 | NUR ---
NURSE NOTES: Report received from Yolanda RN. Patient seen on rounds, AxOx1, not in distress, no sx of pain. PIV on left hand patent and infusing IVF as ordered. Patient is incontinent x2 and bed bedbound. Bed low and locked, siderails up x2, zone alarms on 1, will continue to monitor and do frequent visual rounds. Addendum: 02/27/20 at 0804 by Kate Ling RN Correction, report received from Alicia RAMACHANDRAN,
[2020-02-27] MEDS: Docusate 100mg cap ORAL SCH ×2 (08:31→13:00)
[2020-02-27] MEDS: cefTRIAXone 2 GM in D5W 55 ML IVPB SCH (10:11)
--- NOTE | 2020-02-27 10:24 | NUR ---
*-*DISCHARGE PLANNED*-* PATIENT HAS BEEN ACCEPTED AND WILL BE DISCHARGED BACK TO: [facility] P: [phone] FOR NURSE TO NURSE REPORT ROOM# 11.A [facility] TRANSPORT[facility] SET FOR 1PM S/W SUSAN [id number] S/W PATIENTS SON STORMY MENDOZA JR, WHO IS IN AGREEMENT WITH DISCHARGE PLAN.
--- NOTE | 2020-02-27 10:30 | NUR ---
*-* INSURANCE *-* UPDATED CLINICALS HAVE BEEN FAXED TO: [facility] LOZAN[facility]#[id number] P:[phone] F:[phone] Addendum: 02/28/20 at 1213 by ALEK CAMPO CM NO DISCHARGE SUMMARY IN THE SYSTEM
[2020-02-27] MEDS ORDERED: COLACE100 MG ORAL (10:35)
[2020-02-27] MEDS ORDERED: CRANBERRY450 M5 PO (10:41)
[2020-02-27] MEDS ORDERED: DEPAKOTE SPRIN125 MG PO (10:41)
[2020-02-27] MEDS ORDERED: PROSCAR5 MG ORAL (10:42)
[2020-02-27] MEDS ORDERED: FLOMAX0.4 MG ORAL (10:43)
[2020-02-27] MEDS ORDERED: FLEET ENEMA133 ML RECTAL (10:43)
[2020-02-27] MEDS ORDERED: ACETAMINOPHEN325 M1 ORAL ×2 (10:44→10:46)
[2020-02-27] MEDS ORDERED: MILK OF MA400 MG/51 ORAL (10:44)
[2020-02-27 10:46] LABS: HEMATOCRIT 38.5 % (42.0-52.0); HEMOGLOBIN 12.8 G/DL (14.2-18.0); MEAN CORPUSCULAR VOLUME 92 FL (80-99); PLATELET COUNT 228 K/UL (150-450); RED BLOOD COUNT 4.21 M/UL (4.70-6.10); RED CELL DISTRIBUTION WIDTH 13.5 % (11.6-14.8); WHITE BLOOD COUNT 13.1 K/UL (4.8-10.8)
[2020-02-27] MEDS ORDERED: ACETAMINOPHEN500 M3 ORAL (10:46)
[2020-02-27] MEDS ORDERED: ZINC SULFATE220 M1 ORAL (10:47)
[2020-02-27] MEDS ORDERED: VITAMIN C500 M1 ORAL (10:47)
[2020-02-27 11:03] LABS: ALANINE AMINOTRANSFERASE 88 U/L (12-78); ALBUMIN 1.5 G/DL (3.4-5.0); ALBUMIN/GLOBULIN RATIO 0.3 (1.0-2.7); ALKALINE PHOSPHATASE 104 U/L (46-116); ANION GAP 12 mmol/L (5-15); ASPARTATE AMINO TRANSFERASE 61 U/L (15-37); BLOOD UREA NITROGEN 17 mg/dL (7-18); CARBON DIOXIDE 22 MMOL/L (21-32); CHLORIDE 104 MMOL/L (98-107); CREATININE 1.2 MG/DL (0.55-1.30); PHOSPHORUS 2.4 MG/DL (2.5-4.9); POTASSIUM 3.1 MMOL/L (3.5-5.1); SODIUM 138 MMOL/L (136-145)
--- NOTE | 2020-02-27 12:15 | Infectious Diseases Prog Note ---
Assessment/Plan Assessment/Plan IMPRESSION: 1. E. coli sepsis. 2. E.coli UTI. 3. Renal failure, seems to be acute. 4. Dementia. 5. Hypertension. 6. BPH. 7. R nephrolithiasis RECOMMENDATION: Continue Rocephin Can be discharged with PO Cipro X 5 days Subjective ROS Limited/Unobtainable: Yes Allergies: Coded Allergies: No Known Allergies (Unverified , 12/07/18) Objective Last 24 Hour Vital Signs Date Time Temp Pulse Resp B/P (MAP) Pulse Ox O2 Delivery O2 Flow Rate FiO2 02/27/20 09:00 Room Air 02/27/20 08:00 97.8 71 18 140/77 (98) 95 02/27/20 04:00 97.6 94 20 150/81 (104) 95 02/27/20 00:00 97.3 82 19 128/88 (101) 96 02/26/20 20:10 Room Air 02/26/20 20:00 97.7 72 19 131/91 (104) 96 02/26/20 16:00 98.6 80 18 135/85 (102) 97 Height (Feet): 5 Height (Inches): 7.00 Weight (Pounds): 145 General Appearance: no acute distress HEENT: mucous membranes moist Respiratory/Chest: lungs clear Cardiovascular: normal rate Abdomen: soft, non tender Extremities: no edema Neurologic/Psychiatric: alert, disoriented Laboratory Tests Test 02/27/20 10:40 White Blood Count 13.1 K/UL (4.8-10.8) H Red Blood Count 4.21 M/UL (4.70-6.10) L Hemoglobin 12.8 G/DL (14.2-18.0) L Hematocrit 38.5 % (42.0-52.0) L Mean Corpuscular Volume 92 FL (80-99) Mean Corpuscular Hemoglobin 30.4 PG (27.0-31.0) Mean Corpuscular Hemoglobin Concent 33.2 G/DL (32.0-36.0) Red Cell Distribution Width 13.5 % (11.6-14.8) Platelet Count 228 K/UL (150-450) Mean Platelet Volume 6.3 FL (6.5-10.1) L Neutrophils (%) (Auto) % (45.0-75.0) Lymphocytes (%) (Auto) % (20.0-45.0) Monocytes (%) (Auto) % (1.0-10.0) Eosinophils (%) (Auto) % (0.0-3.0) Basophils (%) (Auto) % (0.0-2.0) Differential Total Cells Counted 100 Neutrophils % (Manual) 79 % (45-75) H Lymphocytes % (Manual) 12 % (20-45) L Monocytes % (Manual) 8 % (1-10) Eosinophils % (Manual) 0 % (0-3) Basophils % (Manual) 0 % (0-2) Band Neutrophils 1 % (0-8) Platelet Estimate Decreased L Platelet Morphology Normal Red Blood Cell Morphology Hypochromasia 1+ Sodium Level 138 MMOL/L (136-145) Potassium Level 3.1 MMOL/L (3.5-5.1) L Chloride Level 104 MMOL/L (98-107) Carbon Dioxide Level 22 MMOL/L (21-32) Anion Gap 12 mmol/L (5-15) Blood Urea Nitrogen 17 mg/dL (7-18) Creatinine 1.2 MG/DL (0.55-1.30) Estimat Glomerular Filtration Rate 58.0 mL/min (>60) Glucose Level 133 MG/DL (74-106) H Calcium Level 7.0 MG/DL (8.5-10.1) L Phosphorus Level 2.4 MG/DL (2.5-4.9) L Magnesium Level 1.9 MG/DL (1.8-2.4) Total Bilirubin 1.0 MG/DL (0.2-1.0) Aspartate Amino Transf (AST/SGOT) 61 U/L (15-37) H Alanine Aminotransferase (ALT/SGPT) 88 U/L (12-78) H Alkaline Phosphatase 104 U/L (46-116) Total Protein 5.9 G/DL (6.4-8.2) L Albumin 1.5 G/DL (3.4-5.0) L Globulin 4.4 g/dL Albumin/Globulin Ratio 0.3 (1.0-2.7) L Current Medications Medications (Trade) Dose Ordered Sig/Phong Route PRN Reason Start Time Stop Time Status Last Admin Dose Admin Acetaminophen (Tylenol) 500 mg Q4H PRN ORAL Mild Pain (Pain Scale 1-3) 02/22/20 22:30 03/23/20 22:29 Ceftriaxone Sodium 2 gm/ Dextrose 55 ml @ 110 mls/hr Q24H IVPB 02/25/20 10:00 03/03/20 09:59 02/27/20 10:11 Dextrose 1,000 ml @ 75 mls/hr [id number] IV 02/25/20 10:15 03/26/20 10:14 02/27/20 02:22 Docusate Sodium (Colace) 100 mg THREE TIMES A DAY ORAL 02/23/20 18:00 03/24/20 17:59 02/27/20 08:31 Pantoprazole (Protonix) 40 mg EVERY 12 HOURS ORAL 02/23/20 21:00 03/24/20 20:59 02/27/20 08:31 Tamsulosin HCl (Flomax) 0.4 mg BEDTIME ORAL 02/23/20 21:00 03/24/20 20:59 02/26/20 20:34 Chito Murrell MD Feb 27, 2020 12:15
--- NOTE | 2020-02-27 12:27 | Hematology/Onc Progress Note ---
Assessment/Plan Assessment/Plan Assessment and Recs # Leukocytosis/elevated white blood cell count, unspecified likely related to underlying stress reaction, smoking v more likely infection (has uti) --> have reviewed peripheral smear and bandemia/neutrophilia noted --> continue antibiotics if they have been started by ID team --> monitor for resolution --> wbc 25-->13 --> as per id --> on abx meropenem-->cftx # Anemia of likely hemodilution as initially hgb 16 --> hgb 16-->13 # Coagulopathy with elev ptt --> trend ptt as needed, if any hemolysis or bleeding --> vitk prn basis # Sepsis --> is currently on abx -> as per id # UTI (urinary tract infection) --> on abx # Teto --> as per renal Dr. Claudio # Psych h/l --> per psych Dr. Casey # Dvt ppx lovenox sq The timing of this note does not necessarily reflect the time of the patient was seen. Greatly appreciate consultation. Subjective Constitutional: Denies: no symptoms, chills, fever, malaise, weakness, other Cardiovascular: Denies: no symptoms, chest pain, edema, irregular heart rate, lightheadedness, palpitations, syncope, other Respiratory: Denies: no symptoms, cough, shortness of breath, SOB with excertion, SOB at rest, sputum, wheezing, other Gastrointestinal/Abdominal: Denies: no symptoms, abdomen distended, abdominal pain, black stools, tarry stools, blood in stool, constipated, diarrhea, difficulty swallowing, nausea, poor appetite, poor fluid intake, rectal bleeding , vomiting, other Genitourinary: Denies: no symptoms, burning, discharge, frequency, flank pain, hematuria, incontinence, pain, urgency, other Neurologic/Psychiatric: Denies: no symptoms, anxiety, depressed, emotional problems, headache, numbness, paresthesia, pre-existing deficit, seizure, tingling, tremors, weakness, other Endocrine: Denies: no symptoms, excessive sweating, flushing, intolerance to cold, intolerance to heat, increased hunger, increased thirst, increased urine, unexplained weight gain, unexplained weight loss, other Allergies: Coded Allergies: No Known Allergies (Unverified , 12/07/18) Subjective 02/25 on med surg, no events, no hsm/cirrhosis, dc planning 02/26 no bleeding, meds reviewed, no fc, no night sweats Objective Objective Current Medications Medications (Trade) Dose Ordered Sig/Phong Route PRN Reason Start Time Stop Time Status Last Admin Dose Admin Acetaminophen (Tylenol) 500 mg Q4H PRN ORAL Mild Pain (Pain Scale 1-3) 02/22/20 22:30 03/23/20 22:29 Ceftriaxone Sodium 2 gm/ Dextrose 55 ml @ 110 mls/hr Q24H IVPB 02/25/20 10:00 03/03/20 09:59 02/27/20 10:11 Dextrose 1,000 ml @ 75 mls/hr [id number] IV 02/25/20 10:15 03/26/20 10:14 02/27/20 02:22 Docusate Sodium (Colace) 100 mg THREE TIMES A DAY ORAL 02/23/20 18:00 03/24/20 17:59 02/27/20 08:31 Pantoprazole (Protonix) 40 mg EVERY 12 HOURS ORAL 02/23/20 21:00 03/24/20 20:59 02/27/20 08:31 Tamsulosin HCl (Flomax) 0.4 mg BEDTIME ORAL 02/23/20 21:00 03/24/20 20:59 02/26/20 20:34 Last 24 Hour Vital Signs Date Time Temp Pulse Resp B/P (MAP) Pulse Ox O2 Delivery O2 Flow Rate FiO2 02/27/20 09:00 Room Air 02/27/20 08:00 97.8 71 18 140/77 (98) 95 02/27/20 04:00 97.6 94 20 150/81 (104) 95 02/27/20 00:00 97.3 82 19 128/88 (101) 96 02/26/20 20:10 Room Air 02/26/20 20:00 97.7 72 19 131/91 (104) 96 02/26/20 16:00 98.6 80 18 135/85 (102) 97 02/26/20 12:00 97.1 75 20 120/80 (93) 97 02/26/20 09:00 Room Air 02/26/20 08:00 98.1 77 20 141/73 (95) 96 02/26/20 04:00 97.3 66 20 157/75 (102) 95 02/26/20 00:00 97.8 84 19 159/84 (109) 96 02/25/20 20:04 Room Air 02/25/20 20:00 98.1 75 19 137/91 (106) 95 02/25/20 16:00 97.3 63 20 135/75 (95) 95 Intake and Output 02/26/20 02/27/20 19:00 07:00 Intake Total 1175 ml Balance 1175 ml Intake Oral 240 ml IV Total 935 ml # Voids 1 2 Labs Test 02/25/20 05:15 02/27/20 10:40 Sodium Level 147 MMOL/L (136-145) 138 MMOL/L (136-145) Potassium Level 4.0 MMOL/L (3.5-5.1) 3.1 MMOL/L (3.5-5.1) Chloride Level 114 MMOL/L (98-107) 104 MMOL/L (98-107) Carbon Dioxide Level 22 MMOL/L (21-32) 22 MMOL/L (21-32) Anion Gap 11 mmol/L (5-15) 12 mmol/L (5-15) Blood Urea Nitrogen 45 mg/dL (7-18) 17 mg/dL (7-18) Creatinine 1.5 MG/DL (0.55-1.30) 1.2 MG/DL (0.55-1.30) Estimat Glomerular Filtration Rate 44.8 mL/min (>60) 58.0 mL/min (>60) Glucose Level 98 MG/DL (74-106) 133 MG/DL (74-106) Uric Acid 7.7 MG/DL (2.6-7.2) Calcium Level 7.8 MG/DL (8.5-10.1) 7.0 MG/DL (8.5-10.1) Phosphorus Level 2.1 MG/DL (2.5-4.9) 2.4 MG/DL (2.5-4.9) Magnesium Level 2.5 MG/DL (1.8-2.4) 1.9 MG/DL (1.8-2.4) Total Bilirubin 1.0 MG/DL (0.2-1.0) 1.0 MG/DL (0.2-1.0) Aspartate Amino Transf (AST/SGOT) 201 U/L (15-37) 61 U/L (15-37) Alanine Aminotransferase (ALT/SGPT) 154 U/L (12-78) 88 U/L (12-78) Alkaline Phosphatase 118 U/L (46-116) 104 U/L (46-116) Total Protein 6.2 G/DL (6.4-8.2) 5.9 G/DL (6.4-8.2) Albumin 1.8 G/DL (3.4-5.0) 1.5 G/DL (3.4-5.0) Globulin 4.4 g/dL 4.4 g/dL Albumin/Globulin Ratio 0.4 (1.0-2.7) 0.3 (1.0-2.7) White Blood Count 13.1 K/UL (4.8-10.8) Red Blood Count 4.21 M/UL (4.70-6.10) Hemoglobin 12.8 G/DL (14.2-18.0) Hematocrit 38.5 % (42.0-52.0) Mean Corpuscular Volume 92 FL (80-99) Mean Corpuscular Hemoglobin 30.4 PG (27.0-31.0) Mean Corpuscular Hemoglobin Concent 33.2 G/DL (32.0-36.0) Red Cell Distribution Width 13.5 % (11.6-14.8) Platelet Count 228 K/UL (150-450) Mean Platelet Volume 6.3 FL (6.5-10.1) Neutrophils (%) (Auto) % (45.0-75.0) Lymphocytes (%) (Auto) % (20.0-45.0) Monocytes (%) (Auto) % (1.0-10.0) Eosinophils (%) (Auto) % (0.0-3.0) Basophils (%) (Auto) % (0.0-2.0) Differential Total Cells Counted 100 Neutrophils % (Manual) 79 % (45-75) Lymphocytes % (Manual) 12 % (20-45) Monocytes % (Manual) 8 % (1-10) Eosinophils % (Manual) 0 % (0-3) Basophils % (Manual) 0 % (0-2) Band Neutrophils 1 % (0-8) Platelet Estimate Decreased Platelet Morphology Normal Red Blood Cell Morphology Hypochromasia 1+ Height (Feet): 5 Height (Inches): 7.00 Weight (Pounds): 145 Objective Physical Exam: Vitals: reviewed General: NAD HEENT: nc, at Neck: supple Chest: clear breath sounds bilaterally Cardiovascular: RRR, no s3, s4 Abdomen: soft, nontender, nd Extremities: no cce, normal range of motion Neuro: alert and oriented Figueroa Valdivia MD Feb 27, 2020 12:27
--- NOTE | 2020-02-27 13:47 | NUR ---
NURSE NOTES: Patient discharged to [facility]. Pt is AxOx1, not in distress, vitals stable prior to discharge. Skin is intact. PIV and ID band removed. No belongings noted. Report given to Marisol at SNF, all discharge instructions and medication list sent with ambulance personnel. Pt left at 1:47pm via gurney transport accompanied by ambulance personnel.
--- NOTE | 2020-02-27 22:22 | Psych Consult Progress Note ---
Psychiatry Progress Note Psychiatry Progress Note Allergies: Coded Allergies: No Known Allergies (Unverified , 12/07/18) Objective Data Height (Feet): 5 Height (Inches): 7.00 Weight (Pounds): 145 Assessment/Plan Problem List: (1) Dementia with behavioral disturbance ICD Codes: F03.91 - Unspecified dementia with behavioral disturbance SNOMED: [id number] Status: progressing Assessment/Plan: restraints to draw labs the pt lacks capacity to make decisions ativan prior to labs Liz Casey MD Feb 27, 2020 22:22
[2020-02-28] MEDS ORDERED: Enoxaparin 40mg Inj SUBQ SCH (09:00)
--- NOTE | 2020-02-28 13:50 | Discharge Summary ---
Discharge Summary Discharge Summary _ DATE OF ADMISSION: 02/22/2020 DATE OF DISCHARGE: 02/27/2020 DISCHARGED BY: Dr Prieto REASON FOR ADMISSION: 80 years old male, resident of care home facility, with past medical history of right femur fracture in 2019 secondary to fall, status post right open reduction internal fixation of right femur fracture, hypertension, BPH, dementia, was sent for evaluation due to leukocytosis. Patient reported feeling thirsty. Patient also reported burning on urination. No fever or chills. No cough or sore throat. No shortness of breath or chest pain. No nausea, vomiting ,diarrhea or constipation. No abdominal pain. Upon evaluation vital signs were stable. Laboratory work-up revealed WBC 24.6, stable hemoglobin , hematocrit and platelet count. Urinalysis revealed +3 protein, +1 ketones , +3 leukocyte esterase , pyuria and many bacteria. Lactic acid 1.6. Sodium 149, chloride 111. BUN 67, creatinine 2.5. Glucose 155. AST 43, ALT 35, lipase 115. Troponin 0.004, pro BNP 1832. EKG revealed sinus rhythm, no acute ischemic changes. Albumin 2.2. Chest x-ray revealed no acute cardiopulmonary pathology. In emergency department patient pancultured , started on empiric antibiotic , received fluid . Patient also was swabbed for COVID-19 and subsequently admitted for further management. CONSULTANTS: ID specialist Dr. Chito Nazario welder fitter gas Dr. Helms sales engagement executive/oncologist Dr. Valdivia psychiatrist [facility] COURSE: Patient admitted to medical surgical floor. Patient initially was kept in isolation. COVID-19 by PCR from 02/21 came back not detected. Blood culture revealed E. coli. Urine culture revealed E. coli. Bacteremia was most likely due to urinary tract infection. ID specialist recommended continue antibiotic at the facility to complete the course. Leukocytosis trending down prior to discharge 13.1. Patient was slowly hydrated . Renal parameters, volumes and electrolytes were closely monitored. Electrolytes corrected as needed. Nephrotoxic's were avoided. Abdominal ultrasound revealed echogenic focus in the right mid to upper lobe pole measuring 7 x 4 mm, probably nonobstructive calculus. Bilateral renal cysts. Per welder fitter gas patient had acute on chronic renal failure. Prior to discharge BUN 17, creatinine 1.2. Acute kidney injury resolved. Blood pressure and blood sugar were closely monitored. No need for antihypertensive medication at this time. DVT and GI prophylaxis provided. Flomax continued. Bowel regimen instituted. Supportive care provided. Per psychiatrist, patient lacked capacity to make decision. Recommended anxiolytic as needed. Patient clinically stabilized and was ready for transfer back to care home facility for continuation of care. FINAL DIAGNOSES: E. coli sepsis E. coli UTI Encephalopathy Acute on chronic renal failure Right nephrolithiasis Dementia with behavioral disturbances BPH DISCHARGE MEDICATIONS: See Medication Reconciliation list. DISCHARGE INSTRUCTIONS: Patient was discharged to the care home facility. Follow up with medical doctor at the facility. I have been assigned to dictate discharge summary for this account. I was not involved in the patient's management. Jessica Aiken NP Feb 28, 2020 13:50
--- NOTE | 2020-02-29 10:26 | NUR ---
*-* INSURANCE *-* DISCHARGE SUMMARY HAS BEEN FAXED TO: [facility]#[id number] P:[phone] F:[phone]
== END 2020-02-27 13:48 | DRG 720 ==
LOC: EDBD 15:06 → EDUNIT# 15:06 → EMR 15:38 → EDBEDREQ 15:40 → 4E 17:48 → EDBEDREQ 18:32
DX: A41.51 Sepsis due to Escherichia coli [E. coli] (principal); N17.9 Acute kidney failure, unspecified; E86.0 Dehydration; N39.0 Urinary tract infection, site not specified; R41.82 Altered mental status, unspecified; N40.0 Benign prostatic hyperplasia without lower urinary tract symptoms; N20.0 Calculus of kidney; G93.40 Encephalopathy, unspecified; F03.91 Unspecified dementia, unspecified severity, with behavioral disturbance; I12.9 Hypertensive chronic kidney disease with stage 1 through stage 4 chronic kidney disease, or unspecified chronic kidney disease; N18.9 Chronic kidney disease, unspecified
CPT/HCPCS: 36415; 71045; 76700; 80053; 80061; 81003; 82550; 82728; 82977; 83036; 83605; 83615; 83690; 83735; 83880; 84100; 84300; 84443; 84484; 84550; 85007; 85025; 85610; 85730; 86140; 87040; 87081; 87086; 87181; 93005; 96361; 96365; 96368; 99285; J7030; J8499